=== PATIENT | female | born 1950 | race Caucasian/White ===

== ENCOUNTER 2016-09-27 06:25 | Emergency (ER) | payer OTHER ==
[2016-09-27] MEDS ORDERED: Phenergan 25 MG INJ IV ONE (06:44)
[2016-09-27] MEDS ORDERED: Hydromorphone 1 mg/ml Ampule IV ONE (06:44)
[2016-09-27] MEDS ORDERED: Sodium Chloride 0.9% 1000 ML 1,000 ML IV SCH (06:45)
[2016-09-27] MEDS ORDERED: TRANDATE 20 MG/5 ML SYRINGE IV ONE (06:58)
--- NOTE | 2016-09-27 06:58 | ERPHSYRPT ---
- History of Present Illness Source: patient, family () Exam Limitations: no limitations Patient Subjective Stated Complaint: pt states she woke up with a deadache on the rt side of her head. Triage Nursing Assessment: pt alert and oreinted, asnwers questions approp. pt ambulatory with unsteady gait noted. respirations nonlabored with lungs cta. regulatory scientist strong and equal bilat. lower ext strength equal bilat. edema noted to bilat lower ext- pt states has been swollen for past year. Hx Tetanus, Diphtheria Vaccination/Date Given: Yes Hx Influenza Vaccination/Date Given: No Hx Pneumococcal Vaccination/Date Given: No Immunizations Up to Date: Yes <LYNSEY PURDY - Last Filed: 09/27/16 07:19> <SOPHIE KWONG - Last Filed: 09/27/16 10:55> - History of Present Illness Time Seen by Provider: 09/27/16 06:35 Physician History: AT 0530 THIS AM PT AWOKE WITH A RIGHT SIDED HEADACHE, VOMITING AND BP = 200/ 100. CHEST PAIN, SHORTNESS OF AIR, ABDOMINAL PAIN ALL DENIED. PT STATES SHE HAD A CVA IN JUNE 2015 WITH RESIDUAL UNSTEADY WALKING AND TINGLING IN THE LEFT HAND. (LYNSEY PURDY) Allergies/Adverse Reactions: liraglutide [From Victoza] Adverse Reaction (Severe, Verified 09/27/16 06:47) pancreatitis Penicillins Adverse Reaction (Verified 09/27/16 06:47) MOTHER WAS ALLERGIC SO SHE NEVER TOOK IT Home Medications: Aspirin [Baby Aspirin] 81 mg PO DAILY 12/14/12 [History] Insulin Aspart [Novolog Flexpen] 25 unit SQ TIDAC 07/18/15 [History] Metoprolol Succinate 50 mg [Toprol Xl 50 MG] 50 mg PO BID 07/18/15 [ History] Pravastatin Sodium 40 mg PO DAILY 07/18/15 [History] Clopidogrel Bisulfate 75 mg [PLAVIX 75 MG Tablet] 75 mg PO DAILY 09/27/16 [History] Duloxetine HCl 30 mg [Cymbalta 30 MG Capsule] 30 mg PO DAILY 09/27/16 [ History] Insulin Degludec [Tresiba Flextouch U-100] 40 unit SQ BID 09/27/16 [History] - Review of Systems Constitutional: Other (ELEVATED BP) Respiratory: No Dyspnea Cardiac: No Chest Pain Abdominal/Gastrointestinal: Vomiting, No Abdominal Pain Neurological: Headache, Sensory Changes (NUMBNESS IN THE LEFT HAND), Other ( UNSTEADY WALKING) All Other Systems: Reviewed and Negative <LYNSEY PURDY - Last Filed: 09/27/16 07:19> - Past Medical History Pertinent Past Medical History: Yes Neurological History: No Pertinent History, Stroke, Other ENT History: No Pertinent History Cardiac History: No Pertinent History, High Cholesterol, Hypertension Respiratory History: No Pertinent History Endocrine Medical History: Diabetes Type II Musculoskeletal History: No Pertinent History GI Medical History: Gallbladder Disease Psycho-Social History: No Pertinent History Female Reproductive Disorders: Other Other Medical History: OVARIAN CYSTS COLON POLYPS. 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 thyroid biopsy - Social History Smoking Status: Never smoker Exposure to second hand smoke: No Drug Use: none Patient Lives Alone: No - Female History Hx Now: No <LYNSEY PURDY - Last Filed: 09/27/16 07:19> - Physical Exam General Appearance: alert Eye Exam: PERRL/EOMI Ears, Nose, Throat Exam: TMs normal, pharynx normal, moist mucous membranes Neck Exam: normal inspection Respiratory Exam: lungs clear Cardiovascular Exam: normal heart sounds Gastrointestinal/Abdomen Exam: soft, normal bowel sounds Back Exam: normal range of motion Extremity Exam: swelling (LOWER LEGS AND FEET HAVE +1 EDEMA) Neurologic Exam: alert, cooperative, gas technician II-XII nml as tested, normal mood/ affect, sensation nml, No motor deficits Skin Exam: warm, dry SpO2 Interpretation: normal SpO2: 94 Oxygen Delivery: Room Air <LYNSEY PURDY - Last Filed: 09/27/16 07:19> <SOPHIE KWONG - Last Filed: 09/27/16 10:55> - Nursing Vital Signs Nursing Vital Signs: Initial Vital Signs Temperature 97.4 F 09/27/16 06:29 Pulse Rate 67 09/27/16 06:29 Respiratory Rate 16 09/27/16 06:29 Blood Pressure 189/94 09/27/16 06:29 O2 Sat by Pulse Oximetry 94 L 09/27/16 06:29 Pain Scale Pain Intensity 0 - Course Nursing assessment & vital signs reviewed: Yes <ELLYNSEY SALAZAR - Last Filed: 09/27/16 07:19> - Course Nursing assessment & vital signs reviewed: Yes EKG Interpreted by Me: RATE (70 bpm), Sinus Rhythm, Left Donna Deviation, Other ( EKG, sinus rhythm 70 bpm, and complete right bundle branch b, left anterior fascicular block left axis deviation T wave inversions lateral leads possible old anterior septal myocardial infarction no acute ST or T wave changes as compared to December 15, 2012) - CT Exams Head CT Interpretation: Tele-radiologist Report (head CT: Impression mild chronic changes (mild heterogeneity of the white matter attenuation, consistent with chronic white matter ischemic changes. Mild cerebral volume loss. No hemorrhage. No mass effect or midline shift), no acute intracranial abnormality. No significant change compared to prior examination.) <SOPHIE KWONG - Last Filed: 09/27/16 10:55> Ordered Tests: Active Orders 24 hr Category Date Time Status EKG-ER Only STAT Care 09/27/16 07:29 Active IV Insertion STAT Care 09/27/16 06:44 Active Oxygen-ED Only NASAL CANNULA 3 lpm Care 09/27/16 07:52 Active HEAD WITHOUT CONTRAST [CT] Stat Exams 09/27/16 06:44 Completed AMYLASE Stat Lab 09/27/16 06:30 Completed CBC W DIFF Stat Lab 09/27/16 06:30 Completed CMP Stat Lab 09/27/16 06:30 Completed CULTURE,URINE Stat Lab 09/27/16 09:00 Received LIPASE Stat Lab 09/27/16 06:30 Completed MAG [MAGNESIUM] Stat Lab 09/27/16 06:30 Completed PROTIME WITH INR Stat Lab 09/27/16 06:30 Completed PTT Stat Lab 09/27/16 06:30 Completed UA W/ MICROSCOPIC Stat Lab 09/27/16 09:00 Completed Medication Summary Generic Name Dose Route Start Last Admin Trade Name Freq PRN Reason Stop Dose Admin Sodium Chloride 1,000 mls @ 100 mls/hr 09/27/16 06:45 09/27/16 07:18 Sodium Chloride 0.9% 1000 Ml IV 10/27/16 06:44 100 mls/hr .Q10H DOROTHY Administration Discontinued Medications Generic Name Dose Route Start Last Admin Trade Name Mele PRN Reason Stop Dose Admin Hydromorphone HCl 1 mg 09/27/16 06:44 09/27/16 07:19 Hydromorphone 1 Mg/Ml Ampule IV 09/27/16 06:45 1 mg STAT ONE Administration Hydromorphone HCl Confirm 09/27/16 07:09 Hydromorphone 1 Mg/Ml Ampule Administered 09/27/16 07:10 Dose 1 mg .ROUTE .STK-MED ONE Levofloxacin/Dextrose 500 mg in 100 mls @ 100 mls/hr 09/27/16 09:49 09/27/16 09:55 Levofloxacin 500mg/100ml D5w IV 09/27/16 10:48 100 mls/hr STAT STA Administration Levofloxacin/Dextrose Confirm 09/27/16 09:52 Levofloxacin 500mg/100ml D5w Administered 09/27/16 09:53 Dose 500 mg in 100 mls @ ud IV .STK-MED ONE Labetalol HCl 10 mg 09/27/16 06:58 09/27/16 07:19 Trandate 20 Mg/5 Ml Syringe IV 09/27/16 06:59 10 mg STAT ONE Administration Labetalol HCl Confirm 09/27/16 07:12 Trandate 100 Mg/20 Ml Mdv For Drip Administered 09/27/16 07:13 Dose 100 mg IV .STK-MED ONE Promethazine HCl 12.5 mg 09/27/16 06:44 09/27/16 07:18 Phenergan 25 Mg Inj IV 09/27/16 06:45 12.5 mg STAT ONE Administration Promethazine HCl Confirm 09/27/16 07:08 Phenergan 25 Mg Inj Administered 09/27/16 07:09 Dose 25 mg .ROUTE .STK-MED ONE Lab/Rad Data: Laboratory Result Diagrams 09/27/16 06:30 09/27/16 06:30 Laboratory Results 09/27/16 09/27/16 09/27/16 Range/Units 09:00 06:30 06:30 WBC (4.0-10.5) K/mm3 RBC (4.1-5.4) M/mm3 Hgb (12.0-16.0) gm/dl Hct (35-47) % MCV (78-100) fl MCH (26-32) pg MCHC (32-36) g/dl RDW (11.5-14.0) % Plt Count (150-450) K/mm3 MPV (6-9.5) fl Gran % (36.0-66.0) % Lymphocytes % (24.0-44.0) % Monocytes % (0.0-12.0) % Eosinophils % (0.00-5.0) % Basophils % (0.0-0.4) % Basophils # (0-0.4) INR 1.03 (0.8-3.0) APTT 31.4 (25.3-37.0) SECONDS Sodium (136-145) mEq/L Potassium (3.5-5.1) mEq/L Chloride (98-107) mEq/L Carbon Dioxide (21-32) mEq/L Anion Gap (5-15) MEQ/L BUN (9-20) mg/dL Creatinine (0.55-1.30) mg/dl Estimated GFR ML/MIN Glucose (70-110) MG/DL Calcium (8.5-10.1) mg/dL Magnesium 1.6 L (1.8-2.4) mg/dL Total Bilirubin (0.2-1.0) mg/dL AST (15-37) U/L ALT (12-78) U/L Alkaline Phosphatase (46-116) U/L Serum Total Protein (6.4-8.2) gm/dL Albumin (3.4-5.0) g/dL Amylase (25-115) U/L Lipase (73-393) U/L Ur Collection Type CATH Urine Color YELLOW (YELLOW) Urine Appearance CLOUDY (CLEAR) Urine pH 5.0 (5-6) Ur Specific Buena 1.020 (1.005-1.025) Urine Protein 500 (Negative) Urine Ketones TRACE (NEGATIVE) Urine Blood 250 (0-5) Onur/ul Urine Nitrite NEGATIVE (NEGATIVE) Urine Bilirubin NEGATIVE (NEGATIVE) Urine Urobilinogen NORMAL (0-1) mg/dL Ur Leukocyte Esterase 2+ (NEGATIVE) Urine Microscopic RBC 25-50 (0-2) /HPF Urine Microscopic WBC >100 (0-5) /HPF Ur Epithelial Cells FEW (FEW) /HPF Amorphous Crystals MODERATE (NEGATIVE) /HPF Urine Bacteria MANY (NEGATIVE) /HPF Urine Glucose 100 (NEGATIVE) mg/dL Specimen Received 09/27/16 0900 09/27/16 09/27/16 Range/Units 06:30 06:30 WBC 9.2 (4.0-10.5) K/mm3 RBC 4.64 (4.1-5.4) M/mm3 Hgb 12.9 (12.0-16.0) gm/dl Hct 39.5 (35-47) % MCV 85.1 (78-100) fl MCH 27.8 (26-32) pg MCHC 32.7 (32-36) g/dl RDW 16.6 H (11.5-14.0) % Plt Count 220 (150-450) K/mm3 MPV 10.8 H (6-9.5) fl Gran % 61.5 (36.0-66.0) % Lymphocytes % 25.4 (24.0-44.0) % Monocytes % 9.3 (0.0-12.0) % Eosinophils % 3.4 (0.00-5.0) % Basophils % 0.4 (0.0-0.4) % Basophils # 0.04 (0-0.4) INR (0.8-3.0) APTT (25.3-37.0) SECONDS Sodium 141 (136-145) mEq/L Potassium 3.8 (3.5-5.1) mEq/L Chloride 103 (98-107) mEq/L Carbon Dioxide 31.3 (21-32) mEq/L Anion Gap 10.1 (5-15) MEQ/L BUN 30 H (9-20) mg/dL Creatinine 1.26 (0.55-1.30) mg/dl Estimated GFR 46 ML/MIN Glucose 101 (70-110) MG/DL Calcium 10.2 H (8.5-10.1) mg/dL Magnesium (1.8-2.4) mg/dL Total Bilirubin 0.50 (0.2-1.0) mg/dL AST 28 (15-37) U/L ALT 23 (12-78) U/L Alkaline Phosphatase 62 (46-116) U/L Serum Total Protein 7.5 (6.4-8.2) gm/dL Albumin 2.9 L (3.4-5.0) g/dL Amylase 49 (25-115) U/L Lipase 137 (73-393) U/L Ur Collection Type Urine Color (YELLOW) Urine Appearance (CLEAR) Urine pH (5-6) Ur Specific Buena (1.005-1.025) Urine Protein (Negative) Urine Ketones (NEGATIVE) Urine Blood (0-5) Onur/ul Urine Nitrite (NEGATIVE) Urine Bilirubin (NEGATIVE) Urine Urobilinogen (0-1) mg/dL Ur Leukocyte Esterase (NEGATIVE) Urine Microscopic RBC (0-2) /HPF Urine Microscopic WBC (0-5) /HPF Ur Epithelial Cells (FEW) /HPF Amorphous Crystals (NEGATIVE) /HPF Urine Bacteria (NEGATIVE) /HPF Urine Glucose (NEGATIVE) mg/dL Specimen Received <LYNSEY PURDY - Last Filed: 09/27/16 07:19> - Progress Progress: improved <SOPHIE KWONG - Last Filed: 09/27/16 10:55> - Progress Progress Note: 09/27/16 08:02 This is a 65-year-old white female initially seen by Dr. Purdy Patient and her states the patient woke with a right-sided headache at 5 :30 AM she was having vomiting blood pressure was noted to be 200/100 there was no chest pain shortness of breath abdominal pain she denied any new neurologic changes she states she had a CVA in June 2015 with residual unsteady walking and tingling in the left hand. Patient had received labetalol Phenergan and Dilaudid which had been ordered by Dr. Purdy. Patient is now feeling comfortable she does state she still has a headache Blood pressure has improved. Patient is quite somnolent as result of her narcotic analgesia Physical examination obese white female somnolent but arouses easily alert oriented 3 cooperative to examination. Head is atraumatic normocephalic. Eyes PERRLA EOMI fundi are unremarkable. Ears TMs valerio and intact bilaterally. Nose is clear. Throat is clear. Neck is supple. Lungs are clear. Heart regular rate and rhythm without murmur. Abdomen soft nontender nondistended positive bowel sounds. Extremities full range of motion pulse equal symmetrical 2 over 4. Neuro cranial nerves II through XII are intact there's no facial droop. Speech is normal. [employer] Department Supervisor are equal and symmetrical 5 over 5. Finger to nose is within normal limits bilaterally no pronator drift. Full range of motion to all extremities. Sensation intact to all extremities. GCS is 15. DTRs 2 over 4 bilaterally. EKG normal sinus rhythm 70 beats per minute left axis deviation and complete right bundle branch block left anterior fascicular block T wave inversions in lateral leads does not appear to be acutely changed from EKG December 15, [address] no acute intracranial abnormalities no significant change compared to prior examination Labs CBC essentially normal magnesium slightly low at 1.6 chemistry otherwise essentially normal with the exception of a BUN of 30 creatinine 1.26 GFR 46 INR is 1.03 Impression migraine headache Hypertension Patient is improved after labetalol Phenergan and Dilaudid. Blood pressure is improving headache is improving However patient is somewhat somnolent after Dilaudid. Will monitor for a short time. 09/27/16 08:36 Patient now states her headache is is markedly improved. Still somewhat somnolent but arouses very easily. Blood pressure improved. 09/27/16 09:49 Patient somnolent rouses easily. States she is pain-free blood pressure stable Patient with a urinary tract infection. Patient states she does not want to be admitted. Will give patient Levaquin 500 mg IV and home with Macrobid 100 mg one orally twice a day for 10 days. Patient will need to follow-up with her family doctor. 09/27/16 10:28 (SOPHIE KWONG) <LYNSEY PURDY - Last Filed: 09/27/16 07:19> - Departure Time of Disposition: 10:42 Departure Disposition: Home Critical Care Time: No <SOPHIE KWONG - Last Filed: 09/27/16 10:55> - Departure Clinical Impression: HTN (hypertension) Qualifiers: Hypertension type: unspecified Qualified Code(s): I10 - Essential (primary) hypertension Headache Qualifiers: Headache type: unspecified Headache chronicity pattern: acute headache Intractability: not intractable Qualified Code(s): R51 - Headache UTI (urinary tract infection) Qualifiers: Urinary tract infection type: site unspecified Hematuria presence: with hematuria Qualified Code(s): N39.0 - Urinary tract infection, site not specified Condition: Fair Referrals: JOSUE KEITH [Primary Care Provider] - Instructions: Headache Additional Instructions: Return home, rest in a dark quiet room. Plenty of fluids. macrobid 100 mg orally twice a day for 10 days Take your other medications as prescribed by your family doctor. Follow-up with your family doctor call today and make an appointment. Return for acute distress or for severe symptoms or for any other problems. Prescriptions: Nitrofurantoin Macro 100 mg [Macrobid 100MG Capsule] 100 mg PO BID #20 capsule
[2016-09-27 07:04] LABS: BASOPHIL % 0.4 % (0.0-0.4); Eosinophil % 3.4 % (0.00-5.0); Granulocytes % 61.5 % (36.0-66.0); Lymphocytes % 25.4 % (24.0-44.0); Mean Cell Volume 85.1 fl (78-100); Mean Corpuscular Hemoglobin 27.8 pg (26-32); Mean Platelet Volume 10.8 fl (6-9.5); Monocytes % 9.3 % (0.0-12.0); Platelet Count 220 K/mm3 (150-450); Red Blood Count 4.64 M/mm3 (4.1-5.4); Red Cell Distribution Width 16.6 % (11.5-14.0); White Blood Count 9.2 K/mm3 (4.0-10.5)
[2016-09-27] MEDS ORDERED: Phenergan 25 MG INJ ONE (07:08)
[2016-09-27] MEDS ORDERED: Hydromorphone 1 mg/ml Ampule ONE (07:09)
[2016-09-27] MEDS ORDERED: Sodium Chloride 0.9% 1000 ML 1,000 ML ONE (07:09)
[2016-09-27] MEDS ORDERED: TRANDATE 100 MG/20 ML MDV FOR DRIP IV ONE (07:12)
[2016-09-27 07:35] LABS: INR 1.03 (0.8-3.0); PROTIME 11.6 SECONDS (9.95-12.35)
[2016-09-27 07:38] LABS: PTT 31.4 SECONDS (25.3-37.0)
[2016-09-27 07:52] LABS: ALBUMIN 2.9 g/dL (3.4-5.0); ANION GAP 10.1 MEQ/L (5-15); BILIRUBIN,TOTAL 0.5 mg/dL (0.2-1.0); Carbon Dioxide 31.3 mEq/L (21-32); Potassium 3.8 mEq/L (3.5-5.1); Total Protein 7.5 gm/dL (6.4-8.2)
--- NOTE | 2016-09-27 09:33 | XRAY ---
Indication: Headache. Patient on blood thinner. Multiple contiguous axial images obtained through the head without contrast. Comparison: July 18, 2015. Again age-appropriate global atrophy with minimal periventricular degenerative micro-ischemia bilaterally. No acute intracranial hemorrhage, abnormal extra-axial fluid collection, or mass effect. Fourth ventricle is midline without hydrocephalus. Bony calvarium intact. Visualized paranasal sinuses and mastoid air cells are clear. Impression: Stable nonacute senile brain. Comment: Preliminary interpretation was made by [facility]. No discrepancy. CT DI 68.98
[2016-09-27 09:41] LABS: Collection Type CATH; Leukocyte Esterase 2+ (NEGATIVE)
[2016-09-27 09:42] LABS: ADD URINE CULTURE? YES (NO); Bacteria MANY /HPF (NEGATIVE); Bilirubin NEGATIVE (NEGATIVE); Blood 250 Ery/ul (0-5); COMPLETE URINE MICROSCOPIC? YES; Epithelial Cells FEW /HPF (FEW); Glucose 100 mg/dL (NEGATIVE); WBC >100 /HPF (0-5)
[2016-09-27] MEDS ORDERED: Levofloxacin 500MG/100ML D5W 500 MG/100 ML BAG IV STA (09:49)
[2016-09-27] MEDS ORDERED: Levofloxacin 500MG/100ML D5W 500 MG/100 ML BAG IV ONE (09:52)
[2016-09-27 10:50] VITALS: BP 146/76; PULSE 78; O2SAT 93
== END 2016-09-27 11:08 | disposition home or self-care (01) ==
LOC: ED 06:25
DX: I10 Essential (primary) hypertension (principal); R51 Headache; N39.0 Urinary tract infection, site not specified; G43.909 Migraine, unspecified, not intractable, without status migrainosus
CPT/HCPCS: 36000; 36415; 70450; 80053; 81000; 82150; 83690; 83735; 85025; 85610; 85730; 87077; 87086; 87186; 93005; 96360; 96361; 96365; 96374; 96375; 99285; J1170; J1956; J2550; P9612

== ENCOUNTER 2017-02-14 19:56 | Emergency (ER) | payer OTHER ==
[2017-02-14] MEDS ORDERED: TYLENOL 325 MG PO STA (20:25)
[2017-02-14 20:28] VITALS: BP 154/70
[2017-02-14] MEDS ORDERED: TYLENOL 325 MG ONE (20:31)
[2017-02-14] MEDS ORDERED: DUONEB 0.5-3 MG/3 ml Neb IH ONE ×2 (20:46→21:17)
--- NOTE | 2017-02-14 20:46 | ERPHSYRPT ---
- History of Present Illness Time Seen by Provider: 02/14/17 20:44 Source: patient, family Exam Limitations: no limitations Patient Subjective Stated Complaint: Pt states she feels tired and hasn't gotten out of bed for 2 days. Family states that pt has not been eating and drinking well and that her urine is concentrated. Triage Nursing Assessment: Pt alert and oriented. Nonproductive intermittent cough. Decreased O2 sat but no apparent distress. Physician History: Pt states she feels tired and hasn't gotten out of bed for 2 days. Family states that pt has not been eating and drinking well Timing/Duration: day(s) (2-3 days) Associated Symptoms: cough, fever, loss of appetite, malaise Allergies/Adverse Reactions: liraglutide [From Victoza] Adverse Reaction (Severe, Verified 09/27/16 06:47) pancreatitis Penicillins Adverse Reaction (Verified 09/27/16 06:47) MOTHER WAS ALLERGIC SO SHE NEVER TOOK IT Home Medications: Aspirin [Baby Aspirin] 81 mg PO DAILY 12/14/12 [History] Insulin Aspart [Novolog Flexpen] 25 unit SQ TIDAC 07/18/15 [History] Metoprolol Succinate 50 mg [Toprol Xl 50 MG] 50 mg PO BID 07/18/15 [ History] Pravastatin Sodium 40 mg PO DAILY 07/18/15 [History] Clopidogrel Bisulfate 75 mg [PLAVIX 75 MG Tablet] 75 mg PO DAILY 09/27/16 [History] Duloxetine HCl 30 mg [Cymbalta 30 MG Capsule] 30 mg PO DAILY 09/27/16 [ History] Insulin Degludec [Tresiba Flextouch U-100] 40 unit SQ BID 09/27/16 [History] Hx Tetanus, Diphtheria Vaccination/Date Given: No Hx Influenza Vaccination/Date Given: No Hx Pneumococcal Vaccination/Date Given: No Immunizations Up to Date: No - Review of Systems Constitutional: Fever, Lethargy, Weakness Eyes: No Symptoms Ears, Nose, & Throat: No Symptoms Respiratory: Cough Cardiac: No Symptoms Abdominal/Gastrointestinal: No Symptoms Genitourinary Symptoms: No Symptoms Musculoskeletal: No Symptoms - Past Medical History Pertinent Past Medical History: Yes Neurological History: No Pertinent History, Stroke, Other ENT History: No Pertinent History Cardiac History: No Pertinent History, High Cholesterol, Hypertension Respiratory History: No Pertinent History Endocrine Medical History: Diabetes Type II Musculoskeletal History: No Pertinent History GI Medical History: Gallbladder Disease Psycho-Social History: No Pertinent History Female Reproductive Disorders: Other Other Medical History: OVARIAN CYSTS COLON POLYPS. 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 thyroid biopsy - Social History Smoking Status: Never smoker Exposure to second hand smoke: No Drug Use: none Patient Lives Alone: No (with ) - Nursing Vital Signs Nursing Vital Signs: Initial Vital Signs Temperature 100.1 F 02/14/17 20:19 Pulse Rate 86 02/14/17 20:19 Respiratory Rate 24 02/14/17 20:19 Blood Pressure 154/70 02/14/17 20:19 O2 Sat by Pulse Oximetry 86 L 02/14/17 20:19 Pain Scale Pain Intensity 0 - Physical Exam General Appearance: mild distress Eye Exam: PERRL/EOMI Ears, Nose, Throat Exam: normal ENT inspection Neck Exam: normal inspection Respiratory Exam: diminished breath sounds, wheezing Cardiovascular Exam: regular rate/rhythm Gastrointestinal/Abdomen Exam: soft Extremity Exam: normal inspection Neurologic Exam: alert Skin Exam: warm SpO2: 86 Oxygen Delivery: Room Air - Course Nursing assessment & vital signs reviewed: Yes - Radiology Exams Chest X-ray Interpretation: Reviewed by me (COPD changes) Ordered Tests: Active Orders 24 hr Category Date Time Status Oxygen-ED Only NASAL CANNULA 2 lpm Care 02/14/17 20:25 Active CHEST 2 VIEWS (PA AND LAT) Stat Exams 02/14/17 20:26 Taken CBC W DIFF Stat Lab 02/14/17 20:54 Completed CMP Stat Lab 02/14/17 20:54 Received Lactic Acid Stat Lab 02/14/17 20:25 Ordered UA W/RFX UR CULTURE Stat Lab 02/14/17 20:26 Ordered Respiratory Nebulizer STAT RT 02/14/17 20:46 Completed Medication Summary Generic Name Dose Route Start Last Admin Trade Name Freq PRN Reason Stop Dose Admin Ceftriaxone Sodium 1,000 mg 02/14/17 21:33 Rocephin 1000 Mg Inj IM 02/14/17 21:34 STAT ONE Discontinued Medications Generic Name Dose Route Start Last Admin Trade Name Mele PRN Reason Stop Dose Admin Acetaminophen 650 mg 02/14/17 20:25 02/14/17 20:33 Tylenol 325 Mg PO 02/14/17 20:26 650 mg STAT STA Administration Acetaminophen Confirm 02/14/17 20:31 Tylenol 325 Mg Administered 02/14/17 20:32 Dose 650 mg .ROUTE .STK-MED ONE Albuterol/Ipratropium 3 ml 02/14/17 20:46 02/14/17 21:18 Duoneb 0.5-3 Mg/3 Ml Neb IH 02/14/17 20:47 3 ml STAT ONE Administration Albuterol/Ipratropium Confirm 02/14/17 21:17 Duoneb 0.5-3 Mg/3 Ml Neb Administered 02/14/17 21:18 Dose 3 ml IH .STK-MED ONE Lab/Rad Data: Laboratory Result Diagrams 02/14/17 20:54 Laboratory Results 02/14/17 Range/Units 20:54 WBC 8.2 (4.0-10.5) K/mm3 RBC 4.47 (4.1-5.4) M/mm3 Hgb 12.4 (12.0-16.0) gm/dl Hct 38.1 (35-47) % MCV 85.2 (78-100) fl MCH 27.7 (26-32) pg MCHC 32.5 (32-36) g/dl RDW 16.7 H (11.5-14.0) % Plt Count 176 (150-450) K/mm3 MPV 10.7 H (6-9.5) fl Gran % 83.1 H (36.0-66.0) % Lymphocytes % 8.3 L (24.0-44.0) % Monocytes % 8.4 (0.0-12.0) % Eosinophils % 0.0 (0.00-5.0) % Basophils % 0.2 (0.0-0.4) % Basophils # 0.02 (0-0.4) - Progress Progress: improved Counseled pt/family regarding: lab results, diagnosis, need for follow-up, rad results - Departure Time of Disposition: 21:39 Departure Disposition: Home Clinical Impression: Bronchitis Condition: Stable Critical Care Time: No Referrals: JOSUE KEITH [Primary Care Provider] - Instructions: Bronchitis Additional Instructions: Please follow the instructions given to you. Please take your medication as prescribed if given. If symptoms recur or get worse, come back to the emergency room if you cannot reach your primary care physician, or call your primary care physician for an appointment. Again if your symptoms get worse, come back to the emergency room. Thanks for visiting emergency room, and let us take care of you. Prescriptions: Ipratropium/Albuterol Sulfate [Combivent Inhaler] 2 puff IH QID #120 aer.w.adap Levofloxacin [Levaquin 500 MG Tablet] 500 mg PO QAM #7 tablet
[2017-02-14 20:57] LABS: BASOPHIL % 0.2 % (0.0-0.4); Granulocytes % 83.1 % (36.0-66.0); Lymphocytes % 8.3 % (24.0-44.0); Mean Cell Volume 85.2 fl (78-100); Mean Corpuscular Hemoglobin 27.7 pg (26-32); Mean Platelet Volume 10.7 fl (6-9.5); Monocytes % 8.4 % (0.0-12.0); Platelet Count 176 K/mm3 (150-450); Red Blood Count 4.47 M/mm3 (4.1-5.4); Red Cell Distribution Width 16.7 % (11.5-14.0); White Blood Count 8.2 K/mm3 (4.0-10.5)
[2017-02-14 21:31] LABS: ALBUMIN 2.8 g/dL (3.4-5.0); ANION GAP 11.5 MEQ/L (5-15); BILIRUBIN,TOTAL 0.4 mg/dL (0.2-1.0); Carbon Dioxide 27.3 mEq/L (21-32); Potassium 4.1 mEq/L (3.5-5.1); Total Protein 7.6 gm/dL (6.4-8.2)
[2017-02-14] MEDS ORDERED: Rocephin 1000 MG INJ IM ONE (21:33)
[2017-02-14] MEDS ORDERED: Rocephin 1000 MG INJ ONE (21:38)
[2017-02-14] MEDS ORDERED: XYLOCAINE 1% HCL 20 ML MDV ONE (21:39)
[2017-02-14 22:18] VITALS: PULSE 89
[2017-02-15 06:57] VITALS: O2SAT 92
--- NOTE | 2017-02-15 08:41 | XRAY ---
Indication: Fever, cough, and weakness. Comparison: July 18, 2015. PA/lateral chest remains clear. Heart is not enlarged. Vascularity normal. Bony thorax intact again with mild osteopenia and degenerative changes. Impression: Stable nonacute chest again with chronic features.
== END 2017-02-14 22:39 | disposition home or self-care (01) ==
LOC: ED 19:56
DX: J40 Bronchitis, not specified as acute or chronic (principal); R05 Cough; R50.9 Fever, unspecified; R63.0 Anorexia; R53.81 Other malaise; Z79.899 Other long term (current) drug therapy; I10 Essential (primary) hypertension; E11.9 Type 2 diabetes mellitus without complications; E78.00 Pure hypercholesterolemia, unspecified
CPT/HCPCS: 36415; 71020; 80053; 83605; 85025; 99284; J0696; A9270-GY

== ENCOUNTER 2018-01-22 12:57 | Observation (INO) | payer MEDICARE, OTHER ==
--- NOTE | 2018-01-22 13:47 | ERPHSYRPT ---
- History of Present Illness Time Seen by Provider: 01/22/18 13:32 Source: patient Exam Limitations: no limitations Patient Subjective Stated Complaint: Was at the [facility] and her left leg went out and she fell to the floor and hit her head on the concrete, was having trouble walking yesterday with the same leg Triage Nursing Assessment: Pt reports that she was at the [facility] and her left leg went out and she fell to the floor and hit her head on the concrete, was having trouble walking yesterday with the same leg, hx of CVA with left sided deficit in 2016, denies head pain, minor tingling in the left corner of mouth, denies any other numbness or tingling, vitals wnl, pulses good, no difficulties with strength Physician History: 67-year-old white female arrives with complaints of falling [place] [facility] and hitting her head. Patient states that she's been having problems with walking with her left leg she has no problems moving her left leg but when she stands up she has a problem walking symptoms since yesterday. She states that her left leg gave out on her this morning about 20 minutes prior to arrival she fell and hit the back of her head. She denies any problems moving she did not have any loss of consciousness she denies any neck pain. 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 Past surgical history includes hysterectomy, cholecystectomy, hernia repair, goiter, right ovary to surgery, colonic polyps and thyroid biopsy. Timing/Duration: other (trouble with walkingon left leg since yesterday, fell and hit head today) Severity: moderate Modifying Factors: Improves With: nothing Associated Symptoms: other (left Leg giving out on patient since yesterday), No nausea, No vomiting, No abdominal pain, No shortness of breath, No heartburn, No diaphoresis, No cough, No chills, No chest pain, No fever, No headaches, No loss of appetite, No malaise, No rash, No syncope, No seizure, No weakness Allergies/Adverse Reactions: liraglutide [From Victoza] Adverse Reaction (Severe, Verified 01/22/18 13:29) pancreatitis Penicillins Adverse Reaction (Verified 01/22/18 13:29) MOTHER WAS ALLERGIC SO SHE NEVER TOOK IT Home Medications: Aspirin [Baby Aspirin] 81 mg PO DAILY 12/14/12 [History] Metoprolol Succinate 50 mg [Toprol Xl 50 MG] 50 mg PO BID 07/18/15 [ History] Pravastatin Sodium 40 mg PO DAILY 07/18/15 [History] Clopidogrel Bisulfate 75 mg [PLAVIX 75 MG Tablet] 75 mg PO DAILY 09/27/16 [History] Duloxetine HCl 30 mg [Cymbalta 30 MG Capsule] 30 mg PO DAILY 09/27/16 [ History] Insulin Glargine,Hum.rec.anlog [Robin Kebede] 50 unit SQ HS 01/22/18 [ History] Hx Tetanus, Diphtheria Vaccination/Date Given: No Hx Influenza Vaccination/Date Given: No Hx Pneumococcal Vaccination/Date Given: No - Review of Systems Constitutional: Other (fell and hit back of head), No Fever, No Chills Eyes: No Symptoms Ears, Nose, & Throat: No Symptoms Respiratory: No Cough, No Dyspnea Cardiac: No Chest Pain, No Edema, No Syncope Abdominal/Gastrointestinal: No Abdominal Pain, No Nausea, No Vomiting, No Diarrhea Genitourinary Symptoms: No Dysuria Musculoskeletal: Other (Left leg giving out on patient since yesterday) Skin: No Rash Neurological: Other (Left leg giving out on patient was she walks since yesterday), No Dizziness, No Headache, No Irritability, No Lethargy, No Paralysis, No Parasthesia, No Seizure, No Sensory Changes, No Speech Changes, No Tics, No Tremors, No Vertigo Psychological: No Symptoms Endocrine: No Symptoms All Other Systems: Reviewed and Negative - Past Medical History Pertinent Past Medical History: Yes Neurological History: No Pertinent History, Stroke, Other ENT History: No Pertinent History Cardiac History: No Pertinent History, High Cholesterol, Hypertension Respiratory History: No Pertinent History Endocrine Medical History: Diabetes Type II Musculoskeletal History: No Pertinent History GI Medical History: Gallbladder Disease Psycho-Social History: No Pertinent History Female Reproductive Disorders: Other Other Medical History: OVARIAN CYSTS COLON POLYPS. hx of cva last year with some lt sided weakness and bells palsy - Past Surgical History Past Surgical History: Yes Neuro Surgical History: No Pertinent History Cardiac: No Pertinent History Respiratory: No Pertinent History Gastrointestinal: Cholecystectomy, Hernia Repair Musculoskeletal: No Pertinent History Female Surgical History: Hysterectomy, Other Other Surgical History: GOITER removed, right ovary removed, polpys removed colon. thyroid biopsy - Social History Smoking Status: Never smoker Exposure to second hand smoke: No Drug Use: none Patient Lives Alone: No (with ) - Female History Hx Now: No - Nursing Vital Signs Nursing Vital Signs: Initial Vital Signs Temperature 98.6 F 01/22/18 13:19 Pulse Rate 82 01/22/18 13:19 Blood Pressure 134/72 01/22/18 13:19 O2 Sat by Pulse Oximetry 93 L 01/22/18 13:19 Pain Scale Pain Intensity 0 - Physical Exam General Appearance: no apparent distress, alert Eye Exam: PERRL/EOMI, eyes nml inspection Ears, Nose, Throat Exam: normal ENT inspection, TMs normal, pharynx normal, moist mucous membranes Neck Exam: normal inspection, non-tender, supple, full range of motion Respiratory Exam: normal breath sounds, lungs clear, No respiratory distress Cardiovascular Exam: regular rate/rhythm, normal heart sounds, normal peripheral pulses Gastrointestinal/Abdomen Exam: soft, normal bowel sounds, No tenderness, No mass Back Exam: normal inspection, normal range of motion, No CVA tenderness, No vertebral tenderness Extremity Exam: normal inspection, normal range of motion, pelvis stable Neurologic Exam: alert, oriented x 3, cooperative, flexographic press operator II-XII nml as tested, normal mood/affect, nml cerebellar function, nml station & gait, sensation nml, other (patient alert, oriented 3, no facial droop, normal finger to nose, no pronator drift, electro mechanical technologist equal and symmetrical 5/5. Musculoskeletal strength intact to lower extremities 5/5, GCS equals 15, sensation intact to all extremities, speech normal), No motor deficits Skin Exam: normal color, warm, dry, No rash SpO2 Interpretation: normal (93%) SpO2: 93 Oxygen Delivery: Room Air - Course Nursing assessment & vital signs reviewed: Yes EKG Interpreted by Me: RATE (79 bpm), Sinus Rhythm, Left [place] Deviation, Other ( EKG:sinus rhythm, 79 bpm, left axis deviation, and complete right bundle branch block, left anterior fascicular block. No acute changes as compared to September) - CT Exams Head CT Interpretation: Discussed w/radiologist (head CT: Stable nonacute senile brain.) Ordered Tests: Active Orders 24 hr Category Date Time Status Accucheck STAT Care 01/22/18 13:38 Active Quality Control Chemist STAT Care 01/22/18 13:38 Active EKG-ER Only STAT Care 01/22/18 13:38 Active IV Insertion STAT Care 01/22/18 13:38 Active Pulse Oximetry (ED) STAT Care 01/22/18 13:38 Active HEAD WITHOUT CONTRAST [CT] Stat Exams 01/22/18 13:39 Completed CBC W DIFF Stat Lab 01/22/18 13:55 Completed CMP Stat Lab 01/22/18 13:55 Completed CULTURE,URINE Stat Lab 01/22/18 Received UA W/RFX UR CULTURE Stat Lab 01/22/18 Completed Lab/Rad Data: Laboratory Result Diagrams 01/22/18 13:55 01/22/18 13:55 Laboratory Results 01/22/18 01/22/18 01/22/18 Range/Units Unknown 13:55 13:55 WBC 8.0 (4.0-10.5) K/mm3 RBC 3.56 L (4.1-5.4) M/mm3 Hgb 9.9 L (12.0-16.0) gm/dl Hct 30.2 L (35-47) % MCV 84.8 (78-100) fl MCH 27.8 (26-32) pg MCHC 32.8 (32-36) g/dl RDW 16.8 H (11.5-14.0) % Plt Count 195 (150-450) K/mm3 MPV 10.7 H (6-9.5) fl Gran % 67.1 H (36.0-66.0) % Eos # (Auto) 0.42 (0-0.5) Absolute Lymphs (auto) 1.61 (1.0-4.6) Absolute Monos (auto) 0.57 (0.0-1.3) Lymphocytes % 20.0 L (24.0-44.0) % Monocytes % 7.1 (0.0-12.0) % Eosinophils % 5.2 H (0.00-5.0) % Basophils % 0.6 (0.0-0.4) % Absolute Granulocytes 5.39 (1.4-6.9) Basophils # 0.05 (0-0.4) Sodium 139 (137-145) mmol/L Potassium 4.8 (3.5-5.1) mmol/L Chloride 104 (98-107) mmol/L Carbon Dioxide 26 (22-30) mmol/L Anion Gap 13.3 (5-15) MEQ/L BUN 45 H (7-17) mg/dL Creatinine 1.78 H (0.52-1.04) mg/dL Estimated GFR 30.4 ML/MIN Glucose 236 H (74-106) mg/dL Calcium 9.6 (8.4-10.2) mg/dL Total Bilirubin 0.30 (0.2-1.3) mg/dL AST 22 (14-36) U/L ALT 21 (0-35) U/L Alkaline Phosphatase 89 (38-126) U/L Serum Total Protein 6.9 (6.3-8.2) g/dL Albumin 3.7 (3.5-5.0) g/dL Urine Color YELLOW (YELLOW) Urine Appearance SLIGHTLY CLOUDY (CLEAR) Urine pH 6.0 (5-6) Ur Specific [place] 1.014 (1.005-1.025) Urine Protein >=500 (Negative) Urine Ketones NEGATIVE (NEGATIVE) Urine Blood NEGATIVE (0-5) Onur/ul Urine Nitrite NEGATIVE (NEGATIVE) Urine Bilirubin NEGATIVE (NEGATIVE) Urine Urobilinogen NEGATIVE (0-1) mg/dL Ur Leukocyte Esterase TRACE (NEGATIVE) Urine WBC (Auto) 11-15 (0-5) /HPF Urine RBC (Auto) NONE (0-2) /HPF U Epithel Cells (Auto) NONE (FEW) /HPF Urine Bacteria (Auto) RARE (NEGATIVE) /HPF Urine Mucus (Auto) SLIGHT (NEGATIVE) /HPF Urine Culture Reflexed YES (NO) Urine Glucose 150 (NEGATIVE) mg/dL - Progress Progress: improved Progress Note: 01/22/18 15:42 This is a 67-year-old white female with history of CVA, hyperlipidemia, high blood pressure, diabetes type 2, gallbladder disease, ovarian cysts, colonic polyps, CVA with left-sided weakness Patient arrives with complaint of trouble walking since yesterday she states that her left leg has been giving out on her she [place] and she fell and hit her head. She states she hit the back of her head she did not have any loss of consciousness. She was noted to by the nurses to have an unsteady gait on arrival. When I checked the patient to the shortly after arrival patient was alert oriented 3 she was speaking well no speech deficits no facial droop. Musculoskeletal strength was 5 over 5 upper and lower. Finger to nose was normal. Sensation was intact to all extremities. Patient's EKG remarkable for sinus rhythm 79 bpm left axis deviation, incomplete right bundle branch block and probable left anterior fascicular block no acute ST or T wave changes head CT did not show any acute intracranial abnormalities Chemistry was remarkable for a mild elevation of BUN of 45 creatinine 1.7 and a glucose was 236 chemistry was otherwise essentially normal CBC White cell 8.0 hemoglobin 9.9 hematocrit 30.2 platelets were 195 Urinalysis has been obtained and is pending Patient is alert oriented and has normal neurologic exam at this time she was able to ambulate with the nurses to the bathroom. I've discussed the patient's case with Dr. Treviño will place patient on observation. Will give patient 162 mg of aspirin. Will place patient on telemetry and obtain every 4 hours neuro checks. - Departure Time of Disposition: 15:46 Departure Disposition: Observation Clinical Impression: Gait disturbance Accidental fall Qualifiers: Encounter type: initial encounter Qualified Code(s): W19.XXXA - Unspecified fall, initial encounter Head contusion Qualifiers: Contusion of head detail: unspecified part of head Condition: Fair Critical Care Time: No Referrals: FANTA TREVIÑO MD [Primary Care Provider] -
[2018-01-22 13:54] LABS: BASOPHIL % 0.6 % (0.0-0.4); Basophil (Absolute #) 0.05 (0-0.4); Eosinophil % 5.2 % (0.00-5.0); Eosinophil (Absolute #) 0.42 (0-0.5); Granulocyte Absolute (ANC) 5.39 (1.4-6.9); Granulocytes % 67.1 % (36.0-66.0); Hematocrit 30.2 % (35-47); Hemoglobin 9.9 gm/dl (12.0-16.0); Lymphocyte (Absolute #) 1.61 (1.0-4.6); Mean Cell Volume 84.8 fl (78-100); Mean Corpuscular Hemoglobin 27.8 pg (26-32); Mean Corpuscular Hgb Concent. 32.8 g/dl (32-36); Mean Platelet Volume 10.7 fl (6-9.5); Monocyte (Absolute #) 0.57 (0.0-1.3); Monocytes % 7.1 % (0.0-12.0); Platelet Count 195 K/mm3 (150-450); Red Blood Count 3.56 M/mm3 (4.1-5.4); Red Cell Distribution Width 16.8 % (11.5-14.0)
[2018-01-22 14:18] LABS: ALBUMIN 3.7 g/dL (3.5-5.0); ANION GAP 13.3 MEQ/L (5-15); BILIRUBIN,TOTAL 0.3 mg/dL (0.2-1.3); Calcium 9.6 mg/dL (8.4-10.2); Creatinine 1 1.78 mg/dL (0.52-1.04); Potassium 4.8 mmol/L (3.5-5.1); Total Protein 6.9 g/dL (6.3-8.2)
--- NOTE | 2018-01-22 14:21 | XRAY ---
Indication: Posterior head injury following fall. Left leg weakness. Multiple contiguous axial images obtained through the head without contrast. Comparison: September 27, 2016. Stable age-appropriate global atrophy and minimal periventricular degenerative micro-ischemia bilaterally. No acute intracranial hemorrhage, abnormal extra-axial fluid collection, or mass effect. Fourth ventricle is midline without hydrocephalus. Bony calvarium intact. Visualized paranasal sinuses and mastoid air cells are clear. Impression: Stable nonacute senile brain. CT DI 50.87
[2018-01-22 15:39] LABS: Appearance SLIGHTLY CLOUDY (CLEAR); Bilirubin NEGATIVE (NEGATIVE); Blood NEGATIVE Ery/ul (0-5); Glucose 150 mg/dL (NEGATIVE); Ketones NEGATIVE (NEGATIVE); Leukocyte Esterase TRACE (NEGATIVE); Nitrite NEGATIVE (NEGATIVE); Protein,Urine Dip >=500 (Negative); Specific Gravity 1.014 (1.005-1.025); Urobilinogen NEGATIVE mg/dL (0-1)
[2018-01-22] MEDS ORDERED: BABY ASPIRIN 81 MG CHEW PO ONE (15:47)
[2018-01-22] MEDS ORDERED: BABY ASPIRIN 81 MG CHEW ONE (15:55)
[2018-01-22] MEDS ORDERED: ZOCOR 20MG PO SCH (22:00)
[2018-01-22] MEDS: Toprol Xl 50 MG PO SCH (22:23)
[2018-01-22] MEDS: Trandate 100 MG PO SCH (22:23)
[2018-01-22] MEDS: NovoLOG Insulin SQ PRN (22:26)
[2018-01-22] MEDS ORDERED: Lantus Insulin SQ ONE (22:55)
[2018-01-22] MEDS ORDERED: Cymbalta 30 MG Capsule ONE (23:02)
[2018-01-22] MEDS ORDERED: PLAVIX 75 MG Tablet ONE (23:03)
[2018-01-23 05:54] LABS: BASOPHIL % 0.4 % (0.0-0.4); Basophil (Absolute #) 0.03 (0-0.4); Eosinophil % 6.1 % (0.00-5.0); Granulocyte Absolute (ANC) 4.87 (1.4-6.9); Granulocytes % 59.2 % (36.0-66.0); Hematocrit 30.9 % (35-47); Hemoglobin 9.9 gm/dl (12.0-16.0); Lymphocyte (Absolute #) 2.11 (1.0-4.6); Lymphocytes % 25.7 % (24.0-44.0); Mean Cell Volume 86.1 fl (78-100); Mean Platelet Volume 10.4 fl (6-9.5); Monocyte (Absolute #) 0.71 (0.0-1.3); Monocytes % 8.6 % (0.0-12.0); Platelet Count 175 K/mm3 (150-450); Red Blood Count 3.59 M/mm3 (4.1-5.4); White Blood Count 8.2 K/mm3 (4.0-10.5)
[2018-01-23 05:57] LABS: Mean Corpuscular Hemoglobin 27.5 pg (26-32)
[2018-01-23 06:04] LABS: ALBUMIN 3.5 g/dL (3.5-5.0); ANION GAP 11.8 MEQ/L (5-15); BILIRUBIN,TOTAL 0.3 mg/dL (0.2-1.3); Calcium 9.9 mg/dL (8.4-10.2); Creatinine 1 1.54 mg/dL (0.52-1.04); Potassium 4.9 mmol/L (3.5-5.1); Total Protein 6.8 g/dL (6.3-8.2)
[2018-01-23] MEDS ORDERED: MEDICATION INTERVENTION MC SCH (07:30)
[2018-01-23] MEDS: NovoLOG Insulin SQ PRN ×2 (07:39→11:28)
[2018-01-23] MEDS ORDERED: NON-FORMULARY ITEM (Mirabegron [Myrbetriq] 25 MG) PO SCH (10:00)
[2018-01-23] MEDS ORDERED: ECOTRIN 81 MG PO SCH (10:00)
[2018-01-23] MEDS ORDERED: BABY ASPIRIN 81 MG CHEW PO SCH (10:00)
[2018-01-23] MEDS ORDERED: VITAMIN D2 PO SCH (10:00)
[2018-01-23] MEDS: Trandate 100 MG PO SCH (10:53)
[2018-01-23] MEDS: Toprol Xl 50 MG PO SCH (10:54)
[2018-01-23 11:46] VITALS: PULSE 72; O2SAT 93
[2018-01-23 11:57] VITALS: BP 186/84
--- NOTE | 2018-01-23 12:57 | PCM.SSS ---
History of Present Illness - Chief Complaint Chief Complaint: fall at [facility] History of Present Illness: is a 67 year old female.Pt reports that she was at the [facility] and her left leg went out and she fell to the floor and hit her head on the concrete, was having trouble walking yesterday with the same leg, hx of CVA with left sided deficit in 2016, denies head pain, minor tingling in the left corner of mouth, denies any other numbness or tingling, 67-year-old white female arrives with complaints of falling at the local [facility] and hitting her head. Patient states that she's been having problems with walking with her left leg she has no problems moving her left leg but when she stands up she has a problem walking symptoms since yesterday. She states that her left leg gave out on her this morning about 20 minutes prior to arrival she fell and hit the back of her head. She denies any problems moving she did not have any loss of consciousness she denies any neck pain. 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 Past surgical history includes hysterectomy, cholecystectomy, hernia repair, goiter, right ovary to surgery, colonic polyps and thyroid biopsy. - Review of Systems Constitutional: No Fever, No Chills Eyes: No Symptoms Ears, Nose, & Throat: No Symptoms Respiratory: No Cough, No Short Of Breath Cardiac: No Chest Pain, No Edema, No Syncope Abdominal/Gastrointestinal: No Abdominal Pain, No Nausea, No Vomiting, No Diarrhea Genitourinary Symptoms: No Dysuria Musculoskeletal: No Back Pain, No Neck Pain Skin: No Rash Neurological: Focal Weakness, Gait Changes, No Dizziness, No Sensory Changes Psychological: No Symptoms Endocrine: No Symptoms Hematologic/Lymphatic: No Symptoms Immunological/Allergic: No Symptoms Medications & Allergies Home Medications: Home Medication List Aspirin [Baby Aspirin] 81 mg PO DAILY 12/14/12 [History Confirmed 01/22/18] Metoprolol Succinate 50 mg [Toprol Xl 50 MG] 50 mg PO BID 07/18/15 [ History Confirmed 01/22/18] Pravastatin Sodium 40 mg PO DAILY 07/18/15 [History Confirmed 01/22/18] Clopidogrel Bisulfate 75 mg [PLAVIX 75 MG Tablet] 75 mg PO DAILY 09/27/16 [History Confirmed 01/22/18] Duloxetine HCl 30 mg [Cymbalta 30 MG Capsule] 30 mg PO DAILY 09/27/16 [ History Confirmed 01/22/18] Ergocalciferol (Vitamin D2) [Vitamin D] 50,000 unit PO 3XW 01/22/18 [History Confirmed 01/22/18] Insulin Glargine,Hum.rec.anlog [Toujeo Max Solostar] 50 unit SQ HS 01/22/18 [ History Confirmed 01/22/18] Labetalol HCl [Trandate] 50 mg PO BID 01/22/18 [History Confirmed 01/22/18] Mirabegron [Myrbetriq] 25 mg PO DAILY 01/22/18 [History Confirmed 01/22/18] Allergies/Adverse Reactions: Allergies Allergy/AdvReac Type Severity Reaction Status Date / Time liraglutide [From Victoza] AdvReac Severe pancreatiti Verified 01/22/18 13:29 s Penicillins AdvReac MOTHER WAS Verified 01/22/18 13:29 ALLERGIC SO SHE NEVER TOOK IT - Past Medical History Past Medical History: Yes Neurological History: No Pertinent History, Stroke, Other ENT History: No Pertinent History Cardiac History: No Pertinent History, High Cholesterol, Hypertension Respiratory History: No Pertinent History Endocrine Medical History: Diabetes Type II Musculoskelatal History: No Pertinent History GI Medical History: Gallbladder Disease Pyscho-Social History: No Pertinent History Reproductive Disorders: Other Comment: OVARIAN CYSTS COLON POLYPS. hx of cva last year with some lt sided weakness and bells palsy - Female History Are you now?: No (hyster) - Past Surgical History Past Surgical History: Yes Neuro Surgical History: No Pertinent History Cardiac History: No Pertinent History Respiratory Surgery: No Pertinent History GI Surgical History: Cholecystectomy, Hernia Repair Genitourinary Surgical Hx: No Pertinent History Musculskeletal Surgical Hx: No Pertinent History Female Surgical History: Hysterectomy, Other Other Surgical History: GOITER removed, right ovary removed, polpys removed colon. thyroid biopsy - Social History Smoking Status: Never smoker Exposure to second hand smoke: No Alcohol: None Drug Use: none - Physical Exam Vital Signs: Vital Signs - 24 hr Temp Pulse Resp BP Pulse Ox 01/23/18 11:57 186/84 01/23/18 11:45 98.1 F 72 20 192/82 93 L 01/23/18 07:51 2 L 01/23/18 07:38 97.5 F 70 21 146/77 97 01/23/18 04:10 179/81 01/23/18 03:47 98.6 F 74 22 192/90 94 L 01/22/18 23:58 98.6 F 76 22 198/86 94 L 01/22/18 19:25 98.2 F 91 H 20 184/84 92 L 01/22/18 19:20 97 01/22/18 17:22 98.3 F 88 18 195/81 93 L 01/22/18 17:11 98.3 F 88 20 195/81 93 L 01/22/18 17:04 91 L 01/22/18 15:46 93 L 01/22/18 14:17 78 16 154/75 97 01/22/18 13:47 97 01/22/18 13:19 98.6 F 82 134/72 93 L Oxygen-Last 24 hours O2 Percentage 2 Liters = 28% O2 Percentage 2 Liters = 28% O2 Percentage 2 Liters = 28% General Appearance: no apparent distress, alert Neurologic Exam: alert, oriented x 3, cooperative, normal mood/affect, nml cerebellar function, nml station & gait, sensation nml, No motor deficits Eye Exam: PERRL/EOMI, eyes nml inspection Ears, Nose, Throat Exam: normal ENT inspection, TMs normal, pharynx normal, moist mucous membranes Neck Exam: normal inspection, non-tender, supple, full range of motion Respiratory Exam: normal breath sounds, lungs clear, No respiratory distress Cardiovascular Exam: regular rate/rhythm, normal heart sounds, normal peripheral pulses Gastrointestinal/Abdomen Exam: soft, normal bowel sounds, No tenderness, No mass Back Exam: normal inspection, normal range of motion, No CVA tenderness, No vertebral tenderness Extremity Exam: normal inspection, normal range of motion, pelvis stable Skin Exam: normal color, warm, dry, No rash Lymphatic Exam: No adenopathy Results - Labs Lab/Micro Results: Accuchecks Date 01/23/18 Date 01/23/18 Date 01/22/18 Time 11:30 Time 07:30 Time 21:00 Accucheck Value: 337 Accucheck Value: 227 Accucheck Value: 322 Accucheck Value: 240 Lab Results-Last 24 Hours 01/22/18 01/22/18 01/22/18 Range/Units 13:55 13:55 Unknown WBC 8.0 (4.0-10.5) K/mm3 RBC 3.56 L (4.1-5.4) M/mm3 Hgb 9.9 L (12.0-16.0) gm/dl Hct 30.2 L (35-47) % MCV 84.8 (78-100) fl MCH 27.8 (26-32) pg MCHC 32.8 (32-36) g/dl RDW 16.8 H (11.5-14.0) % Plt Count 195 (150-450) K/mm3 MPV 10.7 H (6-9.5) fl Gran % 67.1 H (36.0-66.0) % Eos # (Auto) 0.42 (0-0.5) Absolute Lymphs (auto) 1.61 (1.0-4.6) Absolute Monos (auto) 0.57 (0.0-1.3) Lymphocytes % 20.0 L (24.0-44.0) % Monocytes % 7.1 (0.0-12.0) % Eosinophils % 5.2 H (0.00-5.0) % Basophils % 0.6 (0.0-0.4) % Absolute Granulocytes 5.39 (1.4-6.9) Basophils # 0.05 (0-0.4) Sodium 139 (137-145) mmol/L Potassium 4.8 (3.5-5.1) mmol/L Chloride 104 (98-107) mmol/L Carbon Dioxide 26 (22-30) mmol/L Anion Gap 13.3 (5-15) MEQ/L BUN 45 H (7-17) mg/dL Creatinine 1.78 H (0.52-1.04) mg/dL Estimated GFR 30.4 ML/MIN Glucose 236 H (74-106) mg/dL Hemoglobin A1c (4.5-6.0) % Calcium 9.6 (8.4-10.2) mg/dL Total Bilirubin 0.30 (0.2-1.3) mg/dL AST 22 (14-36) U/L ALT 21 (0-35) U/L Alkaline Phosphatase 89 (38-126) U/L Serum Total Protein 6.9 (6.3-8.2) g/dL Albumin 3.7 (3.5-5.0) g/dL Urine Color YELLOW (YELLOW) Urine Appearance SLIGHTLY CLOUDY (CLEAR) Urine pH 6.0 (5-6) Ur Specific [place] 1.014 (1.005-1.025) Urine Protein >=500 (Negative) Urine Ketones NEGATIVE (NEGATIVE) Urine Blood NEGATIVE (0-5) Onur/ul Urine Nitrite NEGATIVE (NEGATIVE) Urine Bilirubin NEGATIVE (NEGATIVE) Urine Urobilinogen NEGATIVE (0-1) mg/dL Ur Leukocyte Esterase TRACE (NEGATIVE) Urine WBC (Auto) 11-15 (0-5) /HPF Urine RBC (Auto) NONE (0-2) /HPF U Epithel Cells (Auto) NONE (FEW) /HPF Urine Bacteria (Auto) RARE (NEGATIVE) /HPF Urine Mucus (Auto) SLIGHT (NEGATIVE) /HPF Urine Culture Reflexed YES (NO) Urine Glucose 150 (NEGATIVE) mg/dL 01/23/18 01/23/18 01/23/18 Range/Units 05:30 05:30 05:30 WBC 8.2 (4.0-10.5) K/mm3 RBC 3.59 L (4.1-5.4) M/mm3 Hgb 9.9 L (12.0-16.0) gm/dl Hct 30.9 L (35-47) % MCV 86.1 (78-100) fl MCH 27.5 (26-32) pg MCHC 32.0 (32-36) g/dl RDW 17.0 H (11.5-14.0) % Plt Count 175 (150-450) K/mm3 MPV 10.4 H (6-9.5) fl Gran % 59.2 (36.0-66.0) % Eos # (Auto) 0.50 (0-0.5) Absolute Lymphs (auto) 2.11 (1.0-4.6) Absolute Monos (auto) 0.71 (0.0-1.3) Lymphocytes % 25.7 (24.0-44.0) % Monocytes % 8.6 (0.0-12.0) % Eosinophils % 6.1 H (0.00-5.0) % Basophils % 0.4 (0.0-0.4) % Absolute Granulocytes 4.87 (1.4-6.9) Basophils # 0.03 (0-0.4) Sodium 138 (137-145) mmol/L Potassium 4.9 (3.5-5.1) mmol/L Chloride 103 (98-107) mmol/L Carbon Dioxide 28 (22-30) mmol/L Anion Gap 11.8 (5-15) MEQ/L BUN 40 H (7-17) mg/dL Creatinine 1.54 H (0.52-1.04) mg/dL Estimated GFR 35.9 ML/MIN Glucose 227 H (74-106) mg/dL Hemoglobin A1c 8.43 H (4.5-6.0) % Calcium 9.9 (8.4-10.2) mg/dL Total Bilirubin 0.30 (0.2-1.3) mg/dL AST 23 (14-36) U/L ALT 19 (0-35) U/L Alkaline Phosphatase 78 (38-126) U/L Serum Total Protein 6.8 (6.3-8.2) g/dL Albumin 3.5 (3.5-5.0) g/dL Urine Color (YELLOW) Urine Appearance (CLEAR) Urine pH (5-6) Ur Specific [place] (1.005-1.025) Urine Protein (Negative) Urine Ketones (NEGATIVE) Urine Blood (0-5) Onur/ul Urine Nitrite (NEGATIVE) Urine Bilirubin (NEGATIVE) Urine Urobilinogen (0-1) mg/dL Ur Leukocyte Esterase (NEGATIVE) Urine WBC (Auto) (0-5) /HPF Urine RBC (Auto) (0-2) /HPF U Epithel Cells (Auto) (FEW) /HPF Urine Bacteria (Auto) (NEGATIVE) /HPF Urine Mucus (Auto) (NEGATIVE) /HPF Urine Culture Reflexed (NO) Urine Glucose (NEGATIVE) mg/dL Microbiology 01/22/18 Unknown Urine Culture - Preliminary Urine, Void GRAM NEGATIVE ID AND SENSITIVITY PENDING Accuchecks Date 01/23/18 Date 01/23/18 Date 01/22/18 Time 11:30 Time 07:30 Time 21:00 Accucheck Value: 337 Accucheck Value: 227 Accucheck Value: 322 Accucheck Value: 240 - Radiology Impressions Radiology Exams & Impressions: Radiology Procedures Category Date Time Status HEAD WITHOUT CONTRAST [CT] Stat Exams 01/22/18 13:39 Completed - Other Procedures and Tests Respiratory Therapy 01/22/18 19:18 Oxygen NASAL CANNULA 2 lpm Assessment/Plan (1) TIA (transient ischemic attack) Current Visit: Yes Status: Acute Assessment & Plan: Chief Complaint Diagnosis gait disturbance, accidental fall, head contusion Allergies Allergy/AdvReac Type Severity Reaction Status Date / Time liraglutide [From Victoza] AdvReac Severe pancreatiti Verified 01/22/18 13:29 s Penicillins AdvReac MOTHER WAS Verified 01/22/18 13:29 ALLERGIC SO SHE NEVER TOOK IT Vital Signs (Last 24 hours) Temp Pulse Resp BP Pulse Ox 01/23/18 11:57 186/84 01/23/18 11:45 98.1 F 72 20 192/82 93 L 01/23/18 07:51 2 L 01/23/18 07:38 97.5 F 70 21 146/77 97 01/23/18 04:10 179/81 01/23/18 03:47 98.6 F 74 22 192/90 94 L 01/22/18 23:58 98.6 F 76 22 198/86 94 L 01/22/18 19:25 98.2 F 91 H 20 184/84 92 L 01/22/18 19:20 97 01/22/18 17:22 98.3 F 88 18 195/81 93 L 01/22/18 17:11 98.3 F 88 20 195/81 93 L 01/22/18 17:04 91 L 01/22/18 15:46 93 L 01/22/18 14:17 78 16 154/75 97 01/22/18 13:47 97 01/22/18 13:19 98.6 F 82 134/72 93 L Home Medications Medication Instructions Recorded Confirmed Last Taken Type Ergocalciferol (Vitamin D2) 50,000 unit PO 3XW 01/22/18 01/22/18 01/22/18 History [Vitamin D] Insulin Glargine,Hum.rec.anlog 50 unit SQ HS 01/22/18 01/22/18 01/22/18 History [Touadama Hooks Solostaldo] Labetalol HCl [Trandate] 50 mg PO BID 01/22/18 01/22/18 01/22/18 History Mirabegron [Myrbetriq] 25 mg PO DAILY 01/22/18 01/22/18 01/22/18 History Current Medications Generic Name Dose Route Start Last Admin Trade Name Mele PRN Reason Stop Dose Admin Aspirin 81 mg 01/23/18 10:00 01/23/18 10:55 Ecotrin 81 Mg PO 02/22/18 09:59 81 mg DAILY DOROTHY Administration Clopidogrel Bisulfate 75 mg 01/23/18 22:00 01/22/18 23:05 Plavix 75 Mg Tablet PO 02/22/18 21:59 75 mg HS DOROTHY Administration Duloxetine HCl 30 mg 01/23/18 22:00 01/22/18 23:05 Cymbalta 30 Mg Capsule PO 02/22/18 21:59 30 mg HS DOROTHY Administration Ergocalciferol 50,000 unit 01/23/18 10:00 01/23/18 10:55 Vitamin D2 PO 02/22/18 09:59 50,000 unit [email or web address]@1000 DOROTHY Administration Insulin Aspart 0 unit 01/22/18 17:04 01/23/18 11:28 Novolog Insulin SQ 02/21/18 17:03 6 unit UD PRN Administration HYPERGLYCEMIA Insulin Glargine 40 unit 01/23/18 22:00 Lantus Insulin SQ 02/22/18 21:59 HS DOROTHY Labetalol HCl 50 mg 01/22/18 22:00 01/23/18 10:53 Trandate 100 Mg PO 02/21/18 21:59 50 mg BID DOROTHY Administration Metoprolol Succinate 50 mg 01/22/18 22:00 01/23/18 10:54 Toprol Xl 50 Mg PO 02/21/18 21:59 50 mg BID DOROTHY Administration Miscellaneous Information 1 each 01/23/18 07:30 Medication Intervention MC 02/22/18 07:29 .RN TO CHECK WITH PT DOROTHY Simvastatin 40 mg 01/22/18 22:00 01/22/18 22:24 Zocor 20mg PO 02/21/18 21:59 40 mg HS DOROTHY Administration Discontinued Medications Generic Name Dose Route Start Last Admin Trade Name Mele PRN Reason Stop Dose Admin Aspirin 162 mg 01/22/18 15:47 01/22/18 15:58 Baby Aspirin 81 Mg Chew PO 01/22/18 15:48 162 mg STAT ONE Administration Aspirin Confirm 01/22/18 15:55 Baby Aspirin 81 Mg Chew Administered 01/22/18 15:56 Dose 162 mg .ROUTE .STK-MED ONE Clopidogrel Bisulfate Confirm 01/22/18 23:03 Plavix 75 Mg Tablet Administered 01/22/18 23:04 Dose 75 mg .ROUTE .STK-MED ONE Duloxetine HCl Confirm 01/22/18 23:02 Cymbalta 30 Mg Capsule Administered 01/22/18 23:03 Dose 30 mg .ROUTE .STK-MED ONE Insulin Glargine 40 unit 01/22/18 22:55 01/22/18 23:07 Lantus Insulin SQ 01/22/18 22:56 40 unit ONCE ONE Administration Intake & Output (Last 24 hours) 01/21/18 01/22/18 01/23/18 01/24/18 11:59 11:59 11:59 11:59 Intake Total 1040 240 Output Total 2050 300 Balance -1010 -60 Weight 86.3 kg Microbiology Results (Last 24 hours) 01/22/18 Unknown Urine, Void Urine Culture - Preliminary GRAM NEGATIVE ID AND SENSITIVITY PENDING Laboratory Results (Last 24 hours) 01/23/18 01/23/18 01/23/18 05:30 05:30 05:30 WBC 8.2 RBC 3.59 L Hgb 9.9 L Hct 30.9 L MCV 86.1 MCH 27.5 MCHC 32.0 RDW 17.0 H Plt Count 175 MPV 10.4 H Gran % 59.2 Eos # (Auto) 0.50 Absolute Lymphs (auto) 2.11 Absolute Monos (auto) 0.71 Lymphocytes % 25.7 Monocytes % 8.6 Eosinophils % 6.1 H Basophils % 0.4 Absolute Granulocytes 4.87 Basophils # 0.03 Sodium 138 Potassium 4.9 Chloride 103 Carbon Dioxide 28 Anion Gap 11.8 BUN 40 H Creatinine 1.54 H Estimated GFR 35.9 Glucose 227 H Hemoglobin A1c 8.43 H Calcium 9.9 Total Bilirubin 0.30 AST 23 ALT 19 Alkaline Phosphatase 78 Serum Total Protein 6.8 Albumin 3.5 Urine Color Urine Appearance Urine pH Ur Specific [place] Urine Protein Urine Ketones Urine Blood Urine Nitrite Urine Bilirubin Urine Urobilinogen Ur Leukocyte Esterase Urine WBC (Auto) Urine RBC (Auto) U Epithel Cells (Auto) Urine Bacteria (Auto) Urine Mucus (Auto) Urine Culture Reflexed Urine Glucose 01/22/18 01/22/18 01/22/18 Unknown 13:55 13:55 WBC 8.0 RBC 3.56 L Hgb 9.9 L Hct 30.2 L MCV 84.8 MCH 27.8 MCHC 32.8 RDW 16.8 H Plt Count 195 MPV 10.7 H Gran % 67.1 H Eos # (Auto) 0.42 Absolute Lymphs (auto) 1.61 Absolute Monos (auto) 0.57 Lymphocytes % 20.0 L Monocytes % 7.1 Eosinophils % 5.2 H Basophils % 0.6 Absolute Granulocytes 5.39 Basophils # 0.05 Sodium 139 Potassium 4.8 Chloride 104 Carbon Dioxide 26 Anion Gap 13.3 BUN 45 H Creatinine 1.78 H Estimated GFR 30.4 Glucose 236 H Hemoglobin A1c Calcium 9.6 Total Bilirubin 0.30 AST 22 ALT 21 Alkaline Phosphatase 89 Serum Total Protein 6.9 Albumin 3.7 Urine Color YELLOW Urine Appearance SLIGHTLY CLOUDY Urine pH 6.0 Ur Specific [place] 1.014 Urine Protein >=500 Urine Ketones NEGATIVE Urine Blood NEGATIVE Urine Nitrite NEGATIVE Urine Bilirubin NEGATIVE Urine Urobilinogen NEGATIVE Ur Leukocyte Esterase TRACE Urine WBC (Auto) 11-15 Urine RBC (Auto) NONE U Epithel Cells (Auto) NONE Urine Bacteria (Auto) RARE Urine Mucus (Auto) SLIGHT Urine Culture Reflexed YES Urine Glucose 150 Orders (Last 24 hours) Category Date Time Status Bedrest with BRP/BSC ROUTINE Activity 01/22/18 17:04 Active Up With Assistance ROUTINE Activity 01/22/18 17:04 Active Accucheck ACHS Care 01/22/18 17:04 Active Accucheck STAT Care 01/22/18 13:38 Completed Call Admit Doctor for Orders ON ADMISSION Care 01/22/18 17:04 Active Customer Account Specialist STAT Care 01/22/18 13:38 Completed Code Status Order ROUTINE Care 01/22/18 17:04 Active EKG-ER Only STAT Care 01/22/18 13:38 Completed IV Care Q6H Care 01/22/18 17:04 Active IV Insertion STAT Care 01/22/18 13:38 Completed Neuro Checks Q4H Care 01/22/18 17:[address] in Observation ROUTINE Care 01/22/18 17:04 Active Pulse Oximetry (ED) STAT Care 01/22/18 13:38 Completed Telemetry q6h Care 01/22/18 17:04 Active Weight,Daily 0600 Care 01/22/18 17:04 Active Guest Request Runner/Discharge Plan Cons 01/22/18 17:33 Active 1800 Calorie ADA Diet 01/22/18 Dinner Active Nutritional Admission Screen Diet 01/22/18 17:33 Active Discharge Routine Discharge 01/23/18 Ordered Discharge/Telephone Order Routine Discharge 01/23/18 Active HEAD WITHOUT CONTRAST [CT] Stat Exams 01/22/18 13:39 Completed CBC W DIFF AM.LAB Lab 01/23/18 05:30 Completed CBC W DIFF Stat Lab 01/22/18 13:55 Completed CMP AM.LAB Lab 01/23/18 05:30 Completed CMP Stat Lab 01/22/18 13:55 Completed HEMOGLOBIN A1C Routine Lab 01/23/18 05:30 Completed Aspirin 81 gm Chew [Baby Aspirin 81 mg Chew] Med 01/22/18 15:55 Discontinued 162 mg .ROUTE .STK-MED ONE Aspirin 81 gm Chew [Baby Aspirin 81 mg Chew] Med 01/22/18 15:47 Discontinued 162 mg PO STAT ONE Aspirin EC 81 mg [Ecotrin 81 mg] Med 01/23/18 10:00 Active 81 mg PO DAILY Clopidogrel Bisulfate 75 mg [PLAVIX 75 MG Tablet] Med 01/22/18 23:03 Discontinued 75 mg .ROUTE .STK-MED ONE Clopidogrel Bisulfate 75 mg [PLAVIX 75 MG Tablet] Med 01/23/18 22:00 Active 75 mg PO HS Duloxetine HCl 30 mg [Cymbalta 30 MG Capsule] Med 01/22/18 23:02 Discontinued 30 mg .ROUTE .STK-MED ONE Duloxetine HCl 30 mg [Cymbalta 30 MG Capsule] Med 01/23/18 22:00 Active 30 mg PO HS Ergocalciferol (Vitamin D2) [Vitamin D2] Med 01/23/18 10:00 Active 50,000 unit PO [id number]@1000 Insulin Aspart [NovoLOG Insulin] Med 01/22/18 17:04 Active See Dose Instructions SQ UD PRN Insulin Glargine [Lantus Insulin] Med 01/23/18 22:00 Active 40 unit SQ HS Insulin Glargine [Lantus Insulin] Med 01/22/18 22:55 Discontinued 40 unit SQ ONCE ONE Labetalol HCl 100 mg [Trandate 100 MG] Med 01/22/18 22:00 Active 50 mg PO BID Medication Intervention Med 01/23/18 07:30 Active 1 each MC .RN TO CHECK WITH PT Metoprolol Succinate 50 mg [Toprol Xl 50 MG] Med 01/22/18 22:00 Active 50 mg PO BID Simvastatin 20Mg [Zocor 20Mg] Med 01/22/18 22:00 Active 40 mg PO HS PT Eval & Treat (MD Order) ROUTINE PT 01/23/18 09:07 Completed PT Screen per Nursing Assess ROUTINE PT 01/23/18 08:49 Completed Oxygen NASAL CANNULA 2 lpm RT 01/22/18 19:18 Active Pulse Oximetry CONTINUOUS RT 01/22/18 17:04 Active Patient Care Notes (Last 24 hours) 01/23/18 12:45 Nursing Note by Catalina Thomas Discharge instructions and education given and understood. Initialized on 01/23/18 12:45 - END OF NOTE 01/23/18 12:15 Case Management Note by Miriam Mccord S/W RUSTY OCAMPO, PT REGARDING NEED FOR A WALKER FOR THE PATIENT, AND ARRANGING FOR PT/OT EVAL AND TREAT OUTPATIENT HERE AT [facility]. Initialized on 01/23/18 12:15 - END OF NOTE 01/23/18 10:24 Respiratory Note by Ilsa Zafar PER RN ERQUEST, . CHECKING ON PT TO SEE IF THEY NEED HOME O2 OR QUALIFIED. UPON EXPLAINING TO PT WHAT I WAS DOING , SHE STATED THAT SHE DID NOT WANT HOME O2 AND WOULD NOT WEAR ITSTATMENT. INFORMED RN OF PTS Initialized on 01/23/18 10:24 - END OF NOTE 01/23/18 10:15 Nursing Note by Catalina Thomas Noted pt SPO2 dropping on RA; pt refused to assessed for home O2; refusing to have at home stating I will not wear it. Initialized on 01/23/18 10:15 - END OF NOTE 01/22/18 19:21 Respiratory Note by Gina Moreno SATS DROPPED TO 88-89% WHILE PT WAS SLEEPING. PLACED ON 2L OXYGEN VIA NASAL CANNULA. SATS UP TO 97% Initialized on 01/22/18 19:21 - END OF NOTE Code(s): G45.9 - TRANSIENT CEREBRAL ISCHEMIC ATTACK, UNSPECIFIED (2) Type 2 diabetes mellitus Current Visit: No Status: Chronic Hospital Summary - Hospital Course Hospital Course: Last Vital Signs Temp 98.1 F 01/23/18 11:45 Pulse 72 01/23/18 11:45 Resp 20 01/23/18 11:45 BP 186/84 01/23/18 11:57 Pulse Ox 93 L 01/23/18 11:45 Allergies liraglutide [From Victoza] Adverse Reaction (Severe, Verified 01/22/18 13:29) pancreatitis Penicillins Adverse Reaction (Verified 01/22/18 13:29) MOTHER WAS ALLERGIC SO SHE NEVER TOOK IT Active Medications Aspirin (Ecotrin 81 Mg) 81 mg PO DAILY [facility] Stop: 02/22/18 09:59 Last Admin: 01/23/18 10:55 Dose: 81 mg Clopidogrel Bisulfate (Plavix 75 Mg Tablet) 75 mg PO HS [facility] Stop: 02/22/18 21:59 Last Admin: 01/22/18 23:05 Dose: 75 mg Duloxetine HCl (Cymbalta 30 Mg Capsule) 30 mg PO HS [facility] Stop: 02/22/18 21:59 Last Admin: 01/22/18 23:05 Dose: 30 mg Ergocalciferol (Vitamin D2) 50,000 unit PO [id number]@1000 [facility] Stop: 02/22/18 09:59 Last Admin: 01/23/18 10:55 Dose: 50,000 unit Insulin Aspart (Novolog Insulin) 0 unit SQ UD PRN PRN Reason: HYPERGLYCEMIA Stop: 02/21/18 17:03 Last Admin: 01/23/18 11:28 Dose: 6 unit Insulin Glargine (Lantus Insulin) 40 unit SQ HS DOROTHY Stop: 02/22/18 21:59 Labetalol HCl (Trandate 100 Mg) 50 mg PO BID DOROTHY Stop: 02/21/18 21:59 Last Admin: 01/23/18 10:53 Dose: 50 mg Metoprolol Succinate (Toprol Xl 50 Mg) 50 mg PO BID [facility] Stop: 02/21/18 21:59 Last Admin: 01/23/18 10:54 Dose: 50 mg Miscellaneous Information (Medication Intervention) 1 each .RN TO CHECK WITH PT DOROTHY Stop: 02/22/18 07:29 Simvastatin (Zocor 20mg) 40 mg PO HS DOROTHY Stop: 02/21/18 21:59 Last Admin: 01/22/18 22:24 Dose: 40 mg Intake & Output 01/23/18 01/24/18 11:59 11:59 Intake Total 1040 240 Output Total 2050 300 Balance -1010 -60 Weight 86.3 kg Orders 01/22/18 19:18 Oxygen NASAL CANNULA 2 lpm 01/22/18 22:00 Labetalol HCl 100 mg [Trandate 100 MG] 50 mg PO BID Metoprolol Succinate 50 mg [Toprol Xl 50 MG] 50 mg PO BID Simvastatin 20Mg [Zocor 20Mg] 40 mg PO HS 01/23/18 Discharge Routine Discharge/Telephone Order Routine 01/23/18 07:30 Medication Intervention 1 each .RN TO CHECK WITH PT 01/23/18 10:00 Aspirin EC 81 mg [Ecotrin 81 mg] 81 mg PO DAILY Ergocalciferol (Vitamin D2) [Vitamin D2] 50,000 unit PO [id number]@1000 01/23/18 22:00 Clopidogrel Bisulfate 75 mg [PLAVIX 75 MG Tablet] 75 mg PO HS Duloxetine HCl 30 mg [Cymbalta 30 MG Capsule] 30 mg PO HS Insulin Glargine [Lantus Insulin] 40 unit SQ HS Lab Tests 01/22/18 01/22/18 01/22/18 13:55 13:55 Unknown WBC 8.0 RBC 3.56 L Hgb 9.9 L Hct 30.2 L MCV 84.8 MCH 27.8 MCHC 32.8 RDW 16.8 H Plt Count 195 MPV 10.7 H Gran % 67.1 H Eos # (Auto) 0.42 Absolute Lymphs (auto) 1.61 Absolute Monos (auto) 0.57 Lymphocytes % 20.0 L Monocytes % 7.1 Eosinophils % 5.2 H Basophils % 0.6 Absolute Granulocytes 5.39 Basophils # 0.05 Sodium 139 Potassium 4.8 Chloride 104 Carbon Dioxide 26 Anion Gap 13.3 BUN 45 H Creatinine 1.78 H Estimated GFR 30.4 Glucose 236 H Hemoglobin A1c Calcium 9.6 Total Bilirubin 0.30 AST 22 ALT 21 Alkaline Phosphatase 89 Serum Total Protein 6.9 Albumin 3.7 Urine Color YELLOW Urine Appearance SLIGHTLY CLOUDY Urine pH 6.0 Ur Specific [place] 1.014 Urine Protein >=500 Urine Ketones NEGATIVE Urine Blood NEGATIVE Urine Nitrite NEGATIVE Urine Bilirubin NEGATIVE Urine Urobilinogen NEGATIVE Ur Leukocyte Esterase TRACE Urine WBC (Auto) 11-15 Urine RBC (Auto) NONE U Epithel Cells (Auto) NONE Urine Bacteria (Auto) RARE Urine Mucus (Auto) SLIGHT Urine Culture Reflexed YES Urine Glucose 150 01/23/18 01/23/18 01/23/18 05:30 05:30 05:30 WBC 8.2 RBC 3.59 L Hgb 9.9 L Hct 30.9 L MCV 86.1 MCH 27.5 MCHC 32.0 RDW 17.0 H Plt Count 175 MPV 10.4 H Gran % 59.2 Eos # (Auto) 0.50 Absolute Lymphs (auto) 2.11 Absolute Monos (auto) 0.71 Lymphocytes % 25.7 Monocytes % 8.6 Eosinophils % 6.1 H Basophils % 0.4 Absolute Granulocytes 4.87 Basophils # 0.03 Sodium 138 Potassium 4.9 Chloride 103 Carbon Dioxide 28 Anion Gap 11.8 BUN 40 H Creatinine 1.54 H Estimated GFR 35.9 Glucose 227 H Hemoglobin A1c 8.43 H Calcium 9.9 Total Bilirubin 0.30 AST 23 ALT 19 Alkaline Phosphatase 78 Serum Total Protein 6.8 Albumin 3.5 Urine Color Urine Appearance Urine pH Ur Specific [place] Urine Protein Urine Ketones Urine Blood Urine Nitrite Urine Bilirubin Urine Urobilinogen Ur Leukocyte Esterase Urine WBC (Auto) Urine RBC (Auto) U Epithel Cells (Auto) Urine Bacteria (Auto) Urine Mucus (Auto) Urine Culture Reflexed Urine Glucose Microbiology 01/22/18 Unknown Urine, Void Urine Culture - Preliminary GRAM NEGATIVE ID AND SENSITIVITY PENDING - Vitals & Intake/Output Vital Signs: Vital Signs Temperature 98.1 F 01/23/18 11:45 Pulse Rate 72 11/30/18 11:45 Respiratory Rate 20 01/23/18 11:45 Blood Pressure 186/84 01/23/18 11:57 O2 Sat by Pulse Oximetry 93 L 01/23/18 11:45 Oxygen-Last Documented O2 Percentage 2 Liters = 28% Intake & Output: Intake & Output 01/21/18 01/22/18 01/23/18 01/24/18 11:59 11:59 11:59 11:59 Intake Total 1040 240 Output Total 2050 300 Balance -1010 -60 Weight 86.3 kg - Lab Result Diagrams: 01/23/18 05:30 01/23/18 05:30 Lab Results-Last 24 Hrs: Accuchecks Date 01/23/18 Date 01/23/18 Date 01/22/18 Time 11:30 Time 07:30 Time 21:00 Accucheck Value: 337 Accucheck Value: 227 Accucheck Value: 322 Accucheck Value: 240 Lab Results-Last 24 Hours 01/22/18 01/22/18 01/22/18 Range/Units 13:55 13:55 Unknown WBC 8.0 (4.0-10.5) K/mm3 RBC 3.56 L (4.1-5.4) M/mm3 Hgb 9.9 L (12.0-16.0) gm/dl Hct 30.2 L (35-47) % MCV 84.8 (78-100) fl MCH 27.8 (26-32) pg MCHC 32.8 (32-36) g/dl RDW 16.8 H (11.5-14.0) % Plt Count 195 (150-450) K/mm3 MPV 10.7 H (6-9.5) fl Gran % 67.1 H (36.0-66.0) % Eos # (Auto) 0.42 (0-0.5) Absolute Lymphs (auto) 1.61 (1.0-4.6) Absolute Monos (auto) 0.57 (0.0-1.3) Lymphocytes % 20.0 L (24.0-44.0) % Monocytes % 7.1 (0.0-12.0) % Eosinophils % 5.2 H (0.00-5.0) % Basophils % 0.6 (0.0-0.4) % Absolute Granulocytes 5.39 (1.4-6.9) Basophils # 0.05 (0-0.4) Sodium 139 (137-145) mmol/L Potassium 4.8 (3.5-5.1) mmol/L Chloride 104 (98-107) mmol/L Carbon Dioxide 26 (22-30) mmol/L Anion Gap 13.3 (5-15) MEQ/L BUN 45 H (7-17) mg/dL Creatinine 1.78 H (0.52-1.04) mg/dL Estimated GFR 30.4 ML/MIN Glucose 236 H (74-106) mg/dL Hemoglobin A1c (4.5-6.0) % Calcium 9.6 (8.4-10.2) mg/dL Total Bilirubin 0.30 (0.2-1.3) mg/dL AST 22 (14-36) U/L ALT 21 (0-35) U/L Alkaline Phosphatase 89 (38-126) U/L Serum Total Protein 6.9 (6.3-8.2) g/dL Albumin 3.7 (3.5-5.0) g/dL Urine Color YELLOW (YELLOW) Urine Appearance SLIGHTLY CLOUDY (CLEAR) Urine pH 6.0 (5-6) Ur Specific [place] 1.014 (1.005-1.025) Urine Protein >=500 (Negative) Urine Ketones NEGATIVE (NEGATIVE) Urine Blood NEGATIVE (0-5) Onur/ul Urine Nitrite NEGATIVE (NEGATIVE) Urine Bilirubin NEGATIVE (NEGATIVE) Urine Urobilinogen NEGATIVE (0-1) mg/dL Ur Leukocyte Esterase TRACE (NEGATIVE) Urine WBC (Auto) 11-15 (0-5) /HPF Urine RBC (Auto) NONE (0-2) /HPF U Epithel Cells (Auto) NONE (FEW) /HPF Urine Bacteria (Auto) RARE (NEGATIVE) /HPF Urine Mucus (Auto) SLIGHT (NEGATIVE) /HPF Urine Culture Reflexed YES (NO) Urine Glucose 150 (NEGATIVE) mg/dL 01/23/18 01/23/18 01/23/18 Range/Units 05:30 05:30 05:30 WBC 8.2 (4.0-10.5) K/mm3 RBC 3.59 L (4.1-5.4) M/mm3 Hgb 9.9 L (12.0-16.0) gm/dl Hct 30.9 L (35-47) % MCV 86.1 (78-100) fl MCH 27.5 (26-32) pg MCHC 32.0 (32-36) g/dl RDW 17.0 H (11.5-14.0) % Plt Count 175 (150-450) K/mm3 MPV 10.4 H (6-9.5) fl Gran % 59.2 (36.0-66.0) % Eos # (Auto) 0.50 (0-0.5) Absolute Lymphs (auto) 2.11 (1.0-4.6) Absolute Monos (auto) 0.71 (0.0-1.3) Lymphocytes % 25.7 (24.0-44.0) % Monocytes % 8.6 (0.0-12.0) % Eosinophils % 6.1 H (0.00-5.0) % Basophils % 0.4 (0.0-0.4) % Absolute Granulocytes 4.87 (1.4-6.9) Basophils # 0.03 (0-0.4) Sodium 138 (137-145) mmol/L Potassium 4.9 (3.5-5.1) mmol/L Chloride 103 (98-107) mmol/L Carbon Dioxide 28 (22-30) mmol/L Anion Gap 11.8 (5-15) MEQ/L BUN 40 H (7-17) mg/dL Creatinine 1.54 H (0.52-1.04) mg/dL Estimated GFR 35.9 ML/MIN Glucose 227 H (74-106) mg/dL Hemoglobin A1c 8.43 H (4.5-6.0) % Calcium 9.9 (8.4-10.2) mg/dL Total Bilirubin 0.30 (0.2-1.3) mg/dL AST 23 (14-36) U/L ALT 19 (0-35) U/L Alkaline Phosphatase 78 (38-126) U/L Serum Total Protein 6.8 (6.3-8.2) g/dL Albumin 3.5 (3.5-5.0) g/dL Urine Color (YELLOW) Urine Appearance (CLEAR) Urine pH (5-6) Ur Specific [place] (1.005-1.025) Urine Protein (Negative) Urine Ketones (NEGATIVE) Urine Blood (0-5) Onur/ul Urine Nitrite (NEGATIVE) Urine Bilirubin (NEGATIVE) Urine Urobilinogen (0-1) mg/dL Ur Leukocyte Esterase (NEGATIVE) Urine WBC (Auto) (0-5) /HPF Urine RBC (Auto) (0-2) /HPF U Epithel Cells (Auto) (FEW) /HPF Urine Bacteria (Auto) (NEGATIVE) /HPF Urine Mucus (Auto) (NEGATIVE) /HPF Urine Culture Reflexed (NO) Urine Glucose (NEGATIVE) mg/dL Micro Results-Entire Visit: Microbiology 01/22/18 Unknown Urine Culture - Preliminary Urine, Void GRAM NEGATIVE ID AND SENSITIVITY PENDING Accuchecks Date 01/23/18 Date 01/23/18 Date 01/22/18 Time 11:30 Time 07:30 Time 21:00 Accucheck Value: 337 Accucheck Value: 227 Accucheck Value: 322 Accucheck Value: 240 - Radiology Exams Ordered Rad Exams-Entire Visit: Radiology Procedures Category Date Time Status HEAD WITHOUT CONTRAST [CT] Stat Exams 01/22/18 13:39 Completed - Procedures and Test Procedures and Tests throughout Hospitalization: Therapy Orders & Screens 01/22/18 19:18 Oxygen NASAL CANNULA 2 lpm Comment: Diagnosis: gait disturbance, accidental fall, head contusion 01/23/18 08:49 PT Screen per Nursing Assess ROUTINE Comment: for a walker Physician Instructions: walker Reason For Exam: unsteady gait Diagnosis: gait disturbance, accidental fall, head contusion Open Wound/Cellutlitis/Pressure Ulcers: No Acute Fx/ORIF/Change in wt bearing status: No Severe MUSCULOSKELETAL pain: No ADL Dysfunction: No Acute CVA w/Hemiparesis/Hemiplegia: No Decreased Functional Mobility/Strength: No Sprain/Strain: No Acute Post-op Mobility Dysfunction: No Total Points: 0 01/23/18 09:07 PT Eval & Treat ( Order) ROUTINE Reason for Eval:: EVAL FOR A WALKER Diagnosis: gait disturbance, accidental fall, head contusion - Discharge Discharge Date: 01/23/18 Disposition: Home, Self-Care Condition: Stable Prescriptions: No Action Aspirin [Baby Aspirin] 81 mg PO DAILY Metoprolol Succinate 50 mg [Toprol Xl 50 MG] 50 mg PO BID Pravastatin Sodium 40 mg PO DAILY Duloxetine HCl 30 mg [Cymbalta 30 MG Capsule] 30 mg PO DAILY Clopidogrel Bisulfate 75 mg [PLAVIX 75 MG Tablet] 75 mg PO DAILY Insulin Glargine,Hum.rec.anlog [[place]s Solostar] 50 unit SQ HS Mirabegron [Myrbetriq] 25 mg PO DAILY Ergocalciferol (Vitamin D2) [Vitamin D] 50,000 unit PO 3XW Labetalol HCl [Trandate] 50 mg PO BID Instructions: Preventing Falls in the Older Adult, Transient Ischemic Attack ( DC), Contusion (DC), Preventing Falls Follow up with: FANTA TREVIÑO MD [Primary Care Provider] - 01/30/18 3:15 pm Forms: Discharge Instructions
[2018-01-23] MEDS ORDERED: PLAVIX 75 MG Tablet PO SCH (22:00)
[2018-01-23] MEDS ORDERED: Cymbalta 30 MG Capsule PO SCH (22:00)
[2018-01-23] MEDS ORDERED: INSULIN GLARGINE HUM REC ANLOG 50 UNIT SQ SCH (22:00)
[2018-01-23] MEDS ORDERED: Lantus Insulin SQ SCH (22:00)
== END 2018-01-23 13:05 | disposition home or self-care (01) ==
LOC: ED 12:57 → MED SURG 17:01
PROVIDERS: ADMIT General Practice; ATTEND General Practice
DX: G45.9 Transient cerebral ischemic attack, unspecified (principal); Z86.73 Personal history of transient ischemic attack (TIA), and cerebral infarction without residual deficits; E78.5 Hyperlipidemia, unspecified; Z86.010 Personal history of colon polyps; G51.0 Bell's palsy; Z79.899 Other long term (current) drug therapy
CPT/HCPCS: 36000; 36415; 70450; 80053; 81001; 82962; 83036; 85025; 87077; 87086; 87186; 93005; 93041; 93268; 94762; 97161; 99285; G0378; A9270-GY

== ENCOUNTER 2018-08-14 09:58 | Emergency (ER) | payer MEDICARE, OTHER ==
[2018-08-14] MEDS ORDERED: Catapres 0.1 MG PO ONE (10:36)
--- NOTE | 2018-08-14 10:37 | ERPHSYRPT ---
- History of Present Illness Time Seen by Provider: 08/14/18 10:32 Source: patient Exam Limitations: no limitations Patient Subjective Stated Complaint: pt here for hypertension, she states she was at infusion center and had high blood pressure and was sent to be seen in er Triage Nursing Assessment: pt walked in , alert, resp easy, skin w/d/p, she states she feels her normal and has no cos Physician History: Pt was at the infusion center this morning, for iron infusion. Her blood pressure was 205/85, her physician was contacted, and sent her home to rest 2 hours, recheck it and come here if it was still high. She denies any complaints , no headaches, focal weakness, no visual changes, slurred speech, chest pain, SOB, dizziness, nausea or other complaints. She ambulates without difficulty. She admits checking her blood sugar this morning and it was > 400, she states, she took all her medications this morning. She took 200 mg Labetalol, 50 mg Topril XL, 25 mg HCTZ and her 25 units of Novolog insulin too. Timing/Duration: today Severity: moderate Modifying Factors: Improves With: nothing Associated Symptoms: denies symptoms Allergies/Adverse Reactions: liraglutide [From Victoza] Adverse Reaction (Severe, Verified 08/14/18 10:17) pancreatitis Penicillins Adverse Reaction (Verified 08/14/18 10:17) MOTHER WAS ALLERGIC SO SHE NEVER TOOK IT Home Medications: Aspirin [Baby Aspirin] 81 mg PO DAILY 12/14/12 [History] Pravastatin Sodium 40 mg PO DAILY 07/18/15 [History] Clopidogrel Bisulfate 75 mg [PLAVIX 75 MG Tablet] 75 mg PO DAILY 09/27/16 [History] Duloxetine HCl 30 mg [Cymbalta 30 MG Capsule] 30 mg PO DAILY 09/27/16 [ History] Ergocalciferol (Vitamin D2) [Vitamin D] 50,000 unit PO 3XW 01/22/18 [History] Mirabegron [Myrbetriq] 25 mg PO DAILY 01/22/18 [History] Cyanocobalamin (Vitamin B-12) [Vitamin B-12] 1,000 mcg PO DAILY 08/07/18 [ History] Donepezil HCl 5 mg PO HS 08/07/18 [History] Insulin Aspart [NovoLOG Insulin] 25 unit SQ AC 08/07/18 [History] Hx Tetanus, Diphtheria Vaccination/Date Given: No Hx Influenza Vaccination/Date Given: No Hx Pneumococcal Vaccination/Date Given: No Immunizations Up to Date: Yes - Review of Systems Constitutional: No Symptoms Respiratory: No Symptoms Cardiac: No Symptoms Abdominal/Gastrointestinal: No Symptoms Neurological: No Symptoms All Other Systems: Reviewed and Negative - Past Medical History Pertinent Past Medical History: Yes Neurological History: Stroke ENT History: Cataracts Cardiac History: Hypertension Respiratory History: No Pertinent History Endocrine Medical History: Diabetes Type II Musculoskeletal History: Arthritis GI Medical History: Diverticulitis History: No Pertinent History Psycho-Social History: No Pertinent History Female Reproductive Disorders: No Pertinent History Other Medical History: CVA in 2014. TIA 2017 - Past Surgical History Past Surgical History: Yes Neuro Surgical History: No Pertinent History Cardiac: No Pertinent History Respiratory: No Pertinent History Gastrointestinal: Cholecystectomy, Hernia Repair Genitourinary: No Pertinent History Musculoskeletal: No Pertinent History Female Surgical History: Hysterectomy, Other Other Surgical History: GOITER removed, right ovary removed, polpys removed colon. thyroid biopsy. Retina surgery both eyes - Social History Smoking Status: Never smoker Exposure to second hand smoke: Yes Drug Use: none Patient Lives Alone: No - Female History Hx Last Menstrual Period: psot Hx Now: No - Nursing Vital Signs Nursing Vital Signs: Initial Vital Signs Temperature 98.4 F 08/14/18 10:12 Pulse Rate 70 08/14/18 10:12 Respiratory Rate 16 08/14/18 10:12 Blood Pressure 194/84 08/14/18 10:12 O2 Sat by Pulse Oximetry 96 08/14/18 10:12 Pain Scale Pain Intensity 0 - Physical Exam General Appearance: no apparent distress Eye Exam: PERRL/EOMI, eyes nml inspection Ears, Nose, Throat Exam: normal ENT inspection, pharynx normal Neck Exam: normal inspection, non-tender, supple, No carotid bruit, No JVD Respiratory Exam: normal breath sounds, lungs clear, airway intact, No chest tenderness Cardiovascular Exam: regular rate/rhythm, normal heart sounds, normal peripheral pulses, No murmur Gastrointestinal/Abdomen Exam: soft, normal bowel sounds, No tenderness Back Exam: normal inspection, No CVA tenderness Extremity Exam: normal inspection Neurologic Exam: alert, oriented x 3, cooperative, normal mood/affect, nml cerebellar function, No motor deficits, No motor weakness, No facial droop Skin Exam: normal color, warm, dry, No rash, No petechiae, No diaphoresis Lymphatic Exam: No adenopathy SpO2 Interpretation: normal SpO2: 96 O2 Delivery: Room Air - Course Nursing assessment & vital signs reviewed: Yes EKG Interpreted by Me: RATE (68/min), Left [place] Deviation, NORMAL INTERVALS, Left Bundle Branch Block, Non-specific ST Changes Ordered Tests: Active Orders 24 hr Category Date Time Status ACCUCHECK [Accucheck] STAT Care 08/14/18 14:05 Active Outpatient Services Director STAT Care 08/14/18 10:30 Active EKG-ER Only STAT Care 08/14/18 10:29 Active IV Insertion STAT Care 08/14/18 10:29 Active CBC W DIFF Stat Lab 08/14/18 10:45 Completed CK-Creatinine Phosphokinase Stat Lab 08/14/18 10:45 Completed CMP Stat Lab 08/14/18 10:45 Completed NT PRO BNP Stat Lab 08/14/18 10:45 Completed PROTIME WITH INR Stat Lab 08/14/18 10:45 Completed PTT Stat Lab 08/14/18 10:45 Completed TROPONIN Q3H Lab 08/14/18 10:45 Completed TROPONIN Q3H Lab 08/14/18 13:20 Completed TROPONIN Q3H Lab 08/14/18 16:30 Ordered TROPONIN Q3H Lab 08/14/18 19:30 Ordered TROPONIN Q3H Lab 08/14/18 22:30 Ordered UA W/RFX UR CULTURE Stat Lab 08/14/18 11:14 Completed Medication Summary Discontinued Medications Generic Name Dose Route Start Last Admin Trade Name Mele PRN Reason Stop Dose Admin Clonidine 0.1 mg 08/14/18 10:36 08/14/18 10:59 Catapres 0.1 Mg PO 08/14/18 10:37 0.1 mg STAT ONE Administration Clonidine Confirm 08/14/18 10:58 Catapres 0.1 Mg Administered 08/14/18 10:59 Dose 0.1 mg .ROUTE .STK-MED ONE Sodium Chloride 1,000 mls @ 999 mls/hr 08/14/18 12:56 08/14/18 13:15 Sodium Chloride 0.9% 1000 Ml IV 08/14/18 13:56 999 mls/hr .Q1H1M STA Administration Sodium Chloride Confirm 08/14/18 13:13 Sodium Chloride 0.9% 1000 Ml Administered 08/14/18 13:14 Dose 1,000 mls @ ud .ROUTE .Home-Account Insulin Human Regular 10 unit 08/14/18 12:56 08/14/18 13:16 Novolin R IV 08/14/18 12:57 10 unit STAT ONE Administration Insulin Human Regular Confirm 08/14/18 13:13 Novolin R Administered 08/14/18 13:14 Dose 10 unit .[facility] Lab/Rad Data: Laboratory Result Diagrams 08/14/18 10:45 08/14/18 10:45 Laboratory Results 08/14/18 08/14/18 08/14/18 Range/Units 13:20 11:14 10:45 WBC (4.0-10.5) K/mm3 RBC (4.1-5.4) M/mm3 Hgb (12.0-16.0) gm/dl Hct (35-47) % MCV (78-100) fl MCH (26-32) pg MCHC (32-36) g/dl RDW (11.5-14.0) % Plt Count (150-450) K/mm3 MPV (6-9.5) fl Gran % (36.0-66.0) % Eos # (Auto) (0-0.5) Absolute Lymphs (auto) (1.0-4.6) Absolute Monos (auto) (0.0-1.3) Lymphocytes % (24.0-44.0) % Monocytes % (0.0-12.0) % Eosinophils % (0.00-5.0) % Basophils % (0.0-0.4) % Absolute Granulocytes (1.4-6.9) Basophils # (0-0.4) PT (9.95-12.35) SECONDS INR (0.8-3.0) APTT (25.3-37.0) SECONDS Sodium (137-145) mmol/L Potassium (3.5-5.1) mmol/L Chloride (98-107) mmol/L Carbon Dioxide (22-30) mmol/L Anion Gap (5-15) MEQ/L BUN (7-17) mg/dL Creatinine (0.52-1.04) mg/dL Estimated GFR ML/MIN Glucose (74-106) mg/dL Calcium (8.4-10.2) mg/dL Total Bilirubin (0.2-1.3) mg/dL AST (14-36) U/L ALT (0-35) U/L Alkaline Phosphatase (38-126) U/L Creatine Kinase (30-135) U/L Troponin I < 0.012 < 0.012 (0.000-0.034) ng/mL NT-Pro-B Natriuret Pep (0-900) pg/mL Serum Total Protein (6.3-8.2) g/dL Albumin (3.5-5.0) g/dL Urine Color YELLOW (YELLOW) Urine Appearance CLEAR (CLEAR) Urine pH 6.0 (5-6) Ur Specific [place] 1.011 (1.005-1.025) Urine Protein >=500 (Negative) Urine Ketones NEGATIVE (NEGATIVE) Urine Blood SMALL (0-5) Onur/ul Urine Nitrite NEGATIVE (NEGATIVE) Urine Bilirubin NEGATIVE (NEGATIVE) Urine Urobilinogen NEGATIVE (0-1) mg/dL Ur Leukocyte Esterase NEGATIVE (NEGATIVE) Urine WBC (Auto) NONE (0-5) /HPF Urine RBC (Auto) NONE (0-2) /HPF U Epithel Cells (Auto) NONE (FEW) /HPF Urine Bacteria (Auto) NONE (NEGATIVE) /HPF Urine Mucus (Auto) SLIGHT (NEGATIVE) /HPF Urine Culture Reflexed NO (NO) Urine Glucose >=500 (NEGATIVE) mg/dL 08/14/18 08/14/18 08/14/18 Range/Units 10:45 10:45 10:45 WBC 6.5 (4.0-10.5) K/mm3 RBC 3.49 L (4.1-5.4) M/mm3 Hgb 10.0 L (12.0-16.0) gm/dl Hct 30.3 L (35-47) % MCV 86.8 (78-100) fl MCH 28.6 (26-32) pg MCHC 33.0 (32-36) g/dl RDW 16.0 H (11.5-14.0) % Plt Count 151 (150-450) K/mm3 MPV 10.5 H (6-9.5) fl Gran % 65.0 (36.0-66.0) % Eos # (Auto) 0.35 (0-0.5) Absolute Lymphs (auto) 1.43 (1.0-4.6) Absolute Monos (auto) 0.47 (0.0-1.3) Lymphocytes % 21.9 L (24.0-44.0) % Monocytes % 7.2 (0.0-12.0) % Eosinophils % 5.4 H (0.00-5.0) % Basophils % 0.5 (0.0-0.4) % Absolute Granulocytes 4.24 (1.4-6.9) Basophils # 0.03 (0-0.4) PT 10.9 (9.95-12.35) SECONDS INR 0.97 (0.8-3.0) APTT 30.2 (25.3-37.0) SECONDS Sodium 136 L (137-145) mmol/L Potassium 4.0 (3.5-5.1) mmol/L Chloride 101 (98-107) mmol/L Carbon Dioxide 24 (22-30) mmol/L Anion Gap 14.2 (5-15) MEQ/L BUN 39 H (7-17) mg/dL Creatinine 1.66 H (0.52-1.04) mg/dL Estimated GFR 33.0 ML/MIN Glucose 420 H (74-106) mg/dL Calcium 9.8 (8.4-10.2) mg/dL Total Bilirubin 0.50 (0.2-1.3) mg/dL AST 18 (14-36) U/L ALT 20 (0-35) U/L Alkaline Phosphatase 108 (38-126) U/L Creatine Kinase 104 (30-135) U/L Troponin I (0.000-0.034) ng/mL NT-Pro-B Natriuret Pep 368 (0-900) pg/mL Serum Total Protein 7.0 (6.3-8.2) g/dL Albumin 3.7 (3.5-5.0) g/dL Urine Color (YELLOW) Urine Appearance (CLEAR) Urine pH (5-6) Ur Specific [place] (1.005-1.025) Urine Protein (Negative) Urine Ketones (NEGATIVE) Urine Blood (0-5) Onur/ul Urine Nitrite (NEGATIVE) Urine Bilirubin (NEGATIVE) Urine Urobilinogen (0-1) mg/dL Ur Leukocyte Esterase (NEGATIVE) Urine WBC (Auto) (0-5) /HPF Urine RBC (Auto) (0-2) /HPF U Epithel Cells (Auto) (FEW) /HPF Urine Bacteria (Auto) (NEGATIVE) /HPF Urine Mucus (Auto) (NEGATIVE) /HPF Urine Culture Reflexed (NO) Urine Glucose (NEGATIVE) mg/dL - Progress Progress: improved Progress Note: 08/14/18 15:01 Pt was given Clonidine 0.1 mg PO, 10 units IV Insulin and 1000 ml NS bolus, her blood sugar is 96, blood pressure improved, (132/80) reviewed her labs together , she is going to be discharged to rest x 2-3 days, check her blood pressure and glucose frequently and follow up with her physician in 2-3 days. 08/14/18 15:05 Counseled pt/family regarding: lab results, diagnosis, need for follow-up - Departure Departure Disposition: Home Clinical Impression: Hyperglycemia Hypertension Qualifiers: Hypertension type: unspecified Qualified Code(s): I10 - Essential (primary) hypertension Condition: Stable Critical Care Time: No Referrals: FANTA TREVIÑO MD [Primary Care Provider] - Instructions: Malignant Hypertension (DC), Hyperglycemia, Adult (DC) Additional Instructions: Rest x 2-3 days, check your blood sugar and blood pressure frequently and follow up with your physician in 2-3 days, return if severe headaches, dizziness , chest pain, or blood pressure > 200/120!
[2018-08-14 10:57] LABS: BASOPHIL % 0.5 % (0.0-0.4); Basophil (Absolute #) 0.03 (0-0.4); Eosinophil % 5.4 % (0.00-5.0); Eosinophil (Absolute #) 0.35 (0-0.5); Granulocyte Absolute (ANC) 4.24 (1.4-6.9); Hematocrit 30.3 % (35-47); Lymphocyte (Absolute #) 1.43 (1.0-4.6); Lymphocytes % 21.9 % (24.0-44.0); Mean Cell Volume 86.8 fl (78-100); Mean Corpuscular Hemoglobin 28.6 pg (26-32); Mean Platelet Volume 10.5 fl (6-9.5); Monocytes % 7.2 % (0.0-12.0); Platelet Count 151 K/mm3 (150-450); Red Blood Count 3.49 M/mm3 (4.1-5.4); White Blood Count 6.5 K/mm3 (4.0-10.5)
[2018-08-14] MEDS ORDERED: Catapres 0.1 MG ONE (10:58)
[2018-08-14 11:00] LABS: INR 0.97 (0.8-3.0); PROTIME 10.9 SECONDS (9.95-12.35)
[2018-08-14 11:03] LABS: PTT 30.2 SECONDS (25.3-37.0)
[2018-08-14 11:14] LABS: ALBUMIN 3.7 g/dL (3.5-5.0); ANION GAP 14.2 MEQ/L (5-15); BILIRUBIN,TOTAL 0.5 mg/dL (0.2-1.3); Calcium 9.8 mg/dL (8.4-10.2); Creatinine 1 1.66 mg/dL (0.52-1.04)
[2018-08-14 11:56] LABS: Appearance CLEAR (CLEAR); Bilirubin NEGATIVE (NEGATIVE); Blood SMALL Ery/ul (0-5); Glucose >=500 mg/dL (NEGATIVE); Ketones NEGATIVE (NEGATIVE); Leukocyte Esterase NEGATIVE (NEGATIVE); Mucus SLIGHT /HPF (NEGATIVE); Nitrite NEGATIVE (NEGATIVE); Protein,Urine Dip >=500 (Negative); Specific Gravity 1.011 (1.005-1.025); Urobilinogen NEGATIVE mg/dL (0-1)
[2018-08-14] MEDS ORDERED: NovoLIN R IV ONE (12:56)
[2018-08-14] MEDS ORDERED: Sodium Chloride 0.9% 1000 ML 1,000 ML IV STA (12:56)
[2018-08-14] MEDS ORDERED: NovoLIN R ONE (13:13)
[2018-08-14] MEDS ORDERED: Sodium Chloride 0.9% 1000 ML 1,000 ML ONE (13:13)
[2018-08-14 15:05] VITALS: O2SAT 96
[2018-08-14 16:36] VITALS: BP 173/87; PULSE 66
== END 2018-08-14 16:39 | disposition home or self-care (01) ==
LOC: ED 09:58
DX: E11.65 Type 2 diabetes mellitus with hyperglycemia (principal); I10 Essential (primary) hypertension; Z79.4 Long term (current) use of insulin; M19.90 Unspecified osteoarthritis, unspecified site; Z79.899 Other long term (current) drug therapy; Z86.73 Personal history of transient ischemic attack (TIA), and cerebral infarction without residual deficits
CPT/HCPCS: 36000; 36415; 80053; 81001; 82550; 82962; 83880; 84484; 85025; 85610; 85730; 93005; 93041; 96360; 96372; 96374; 99284; A9270-GY

== ENCOUNTER 2021-09-03 10:56 | Day surgery (SDC) | payer MEDICARE ==
[2021-09-03] MEDS ORDERED: Lactated Ringers 1,000 ML IV ONE ×2 (11:32→14:01)
[2021-09-03] MEDS ORDERED: Lactated Ringers 1,000 ML IV SCH (12:00)
[2021-09-03] MEDS ORDERED: DIPRIVAN 200 MG/20 ML IV ONE ×4 (13:03→14:22)
[2021-09-03] MEDS ORDERED: Versed 2 MG/2 ML Injection ONE (13:03)
[2021-09-03] MEDS ORDERED: GlucaGen 1 MG ONE (13:24)
[2021-09-03] MEDS ORDERED: TRANDATE 20 MG/4 ML SYRINGE IV ONE (13:29)
[2021-09-03 16:16] VITALS: O2SAT 96
[2021-09-03 16:19] VITALS: BP 170/80; PULSE 70
--- NOTE | 2021-09-04 08:48 | OP ---
PROCEDURE DATE/TIME: 09/03/2021 1305 PREOPERATIVE DIAGNOSES: 1) Surveillance. 2) Anemia. 3) History of polyps. POSTOPERATIVE DIAGNOSES: 1) History of chronic polyps. 2) Anemia. 3) Multiple colonic polyps. 4) Rectal mass. 5) Diverticulosis with diverticular spasm. PROCEDURES: 1) Colonoscopy with hot snare polypectomies x8. 2) Cold snare polypectomy x1. 3) Biopsies and tattoo placement. PROCEDURE PERFORMED BY: Yohaan Baker M.D. ANESTHESIA: MAC. ESTIMATED BLOOD LOSS: None. COMPLICATIONS: None. SPECIMENS: 1) Cecal polyp. 2) Ascending colon x3. 3) Large hepatic flexure polyp. 4) Moderate sized hepatic flexure polyp #1. 5) Moderate sized hepatic flexure polyp #2. 6) Descending colon polyp. 7) Distal descending colon polyp. 8) Biopsies of distal rectal mass. HISTORY: This is a 70-year-old female who has had anemia in the past and is also due for a surveillance colonoscopy. She has a history of polyps in the distal past. Risks, benefits, alternatives regarding colonoscopy and EGD have been discussed with her in detail. She wanted to proceed with EGD only and understands the risks, benefits and alternatives of this. She has stopped her blood thinner. H&P and consent have been reviewed with her and confirmed. She was seen preoperatively. DESCRIPTION OF PROCEDURE: She was then brought back to the endoscopy suite laid in left lateral decubitus position. A complete time out was performed. First, a rectal exam was done. She does have a mass as well as minor hemorrhoidal tissue and a minor small, benign appearing skin tag. We then inserted the scope and gently advanced this to the level of the cecum. She did have some mild tortuosity in the sigmoid colon and colonic flexure. Gentle abdominal pressure was used to navigate the scope to the level of the cecum. The appendiceal orifice and ileocecal valve were visualized and these were normal. The prep was satisfactory overall. We did have to irrigate to remove the liquid stool. The scope was carefully withdrawn taking a circumferential view. She had many polyps as follows: There was a cecal polyp approximately 1 to 1.2 cm semi-penduculated taken with hot snare. There were ascending colon polyps sizes of: 5 mm, 6 mm and 8 mm. These were all either pedunculated or semi-pedunculated taken all in entirety with hot snare. There was a larger hepatic flexure polyp that was approximately 1.8 cm which was taken with a hot snare in entirety this was pedunculated. A clip was placed to insure no post-polypectomy bleeding. Due to the size of the hepatic flexure polyp, I did place a tattoo 1 cm distal to the large hepatic flexure polyp. The polyp itself was approximately 1.8 cm before removal. The moderate sized hepatic flexure polyp was about 9 to 10 mm and the moderate sized hepatic flexure polyp #2 was about 1.2 cm both were taken with hot snare in entirety. The descending colon polyp was about 1.2 to 1.4 cm this was also pedunculated and taken in entirety with hot snare and a clip was placed. The other additional hepatic flexure polyps were semi-pedunculated. All of these polyps were retrieved. All sites were hemostatic. All were taken in entirety. All sites were also resurveyed to insure hemostasis and good removal. I also did review the specimens in the jars as well and they were retrieved. The patient also had a distal descending polyp that was small about 3 mm taken with a cold snare in entirety this site looked hemostatic. During the procedure due to the significant number of moderate to large size polyps, the patient did have quite a bit of spasm. She actually had spasm on entry but this progressed during the procedure and so we did give her Glucagon to decrease the spasm as much as feasible. Once we took out all of the lesions in the hepatic flexure, she had quite a bit of spasm even in the sigmoid and so there are some small polyps remaining that we did not take out due to the significance of what we had already taken out. She did also have a small amount of bleeding from the large hepatic flexure initially one cyst was removed and so I did place a clip at this place and this was hemostatic. We resurveyed the site and insured this. As we completely withdrew the scope, I do not see any significant large lesions but there are some polyps remaining in the sigmoid and descending colon that we will take when we come back at our next interval. Again, quite spasmed in the sigmoid and she also has diverticulosis and her descending colon was spasmed as well. Once the scope was withdrawn back to the region of the rectum, we did a very thorough visualization. There is one small polyp that appears to be adjacent to a large rectal mass this looks like a pedunculated tumor this could be benign. It could also be malignant. On exam it is very soft. It is stationed posteriorly. It is about 3 cm in size and it is approximately 2.5 to 3 cm from the anal verge. It appears to be somewhat pedunculated. The maximum size snare that we have available will not even remotely fit around this lesion so I took multiple biopsies with cold forceps and sent these to pathology. This site is friable. It does bleed easy. Once our biopsies were complete and hemostatic, we removed the scope. The patient tolerated the procedure well. There were no immediate complications. PLAN: I have discussed with the family as with the patient personally, the findings. We will await her pathology report. I will also be ordering MRI of her pelvis now to see how extensive this mass is and then our plan will be to review pathology and MRI results and if this looks to be benign or dysplastic, we will go in with a larger snare that we will special order and attempt to take out this polyp likely under general anesthesia with a rectal exam under anesthesia tray set up in case that is not feasible. The patient and her family understand. I have also discussed with them any instructions including when to start the blood thinner and what to look for. If she has fever, abdominal pain or bleeding she will call and her abdominal exam is very soft and she has a very nice soft nontender belly with a benign exam.
== END 2021-09-03 16:04 | disposition home or self-care (01) ==
LOC: SDC 10:56
PROVIDERS: ATTEND Surgery
DX: Z09 Encounter for follow-up examination after completed treatment for conditions other than malignant neoplasm (principal); Z86.010 Personal history of colon polyps; D64.9 Anemia, unspecified; D37.5 Neoplasm of uncertain behavior of rectum; K57.30 Diverticulosis of large intestine without perforation or abscess without bleeding; K64.4 Residual hemorrhoidal skin tags; E11.9 Type 2 diabetes mellitus without complications; D12.2 Benign neoplasm of ascending colon; D12.0 Benign neoplasm of cecum; D12.4 Benign neoplasm of descending colon; D12.3 Benign neoplasm of transverse colon; D12.8 Benign neoplasm of rectum
CPT/HCPCS: 82947; J1610; J2250; J2704

== ENCOUNTER 2021-09-20 20:38 | Observation (INO) | payer MEDICARE ==
[2021-09-20 21:40] LABS: Absolute Neutrophil Ct (ANC) 5.74 x10^3/uL (1.4-6.9); Basophil (Absolute #) 0.04 x10^3/uL (0-0.4); Eosinophil % 5.4 % (0.00-5.0); Eosinophil (Absolute #) 0.46 x10^3/uL (0-0.5); Hematocrit 27.2 % (35-47); Hemoglobin 8.7 g/dL (12.0-16.0); Lymphocyte (Absolute #) 1.64 x10^3/uL (1.0-4.6); Lymphocytes % 19.4 % (24.0-44.0); Mean Cell Volume 87.5 fL (78-100); Mean Platelet Volume 10.7 fL (7.5-11.0); Monocyte (Absolute #) 0.55 x10^3/uL (0.0-1.3); Monocytes % 6.5 % (0.0-12.0); Neutrophil % 67.8 % (36.0-66.0); Platelet Count 191 x10^3/uL (150-450); Red Blood Count 3.11 x10^6/uL (4.1-5.4); Red Cell Distribution Width 17.1 % (11.5-14.0); White Blood Count 8.5 x10^3/uL (4.0-10.5)
[2021-09-20 21:55] LABS: ALBUMIN 3.6 g/dL (3.5-5.0); ANION GAP 13.6 MEQ/L (5-15); BILIRUBIN,TOTAL 0.3 mg/dL (0.2-1.3); Calcium 8.9 mg/dL (8.4-10.2); Creatinine 1 4.73 mg/dL (0.52-1.04); EST GLOMERULAR FILTRATION RATE 9.8 ML/MIN; Potassium 3.8 mmol/L (3.5-5.1); Total Protein 6.8 g/dL (6.3-8.2)
--- NOTE | 2021-09-20 22:03 | ERPHSYRPT ---
- History of Present Illness Time Seen by Provider: 09/20/21 20:40 Source: patient Patient Subjective Stated Complaint: I fell last Friday because I got dizzy in the dining room. Triage Nursing Assessment: pt fell last Friday09/15/21 in the dining room and is c/o mid to low right back pain, states, "I felt a "pop" in my rib tonight on the right side". Pt's pain has gotten alot better and she was moving well today until she felt the pop and pain has increased. Physician History: Patient is a 70-year-old female presents to our emergency department for evaluation of pain to her right rib. Patient states she became dizzy last week on Friday. Patient fell at that time. She did not seek medical attention. Patient injured her low back at that time. Patient is here today because she felt a pop in her right rib. Patient became concerned. Patient is no longer dizzy. Patient states her pain from the fall last Friday has resolved and declined a x-ray of her low back. Patient states she just wants her rib examined. No headache. No nausea vomiting. No diaphoresis. Patient denies BHT. No LOC. No neck pain. Cervical spine cleared clinically. No chest pain or shortness of breath. Patient does have tenderness to the posterior lateral aspect of her right rib. Patient is ambulatory with a normal gait. No abdominal pain. No numbness tingling or weakness. Patient voices no other complaints or concerns at this time. Timing/Duration: day(s) (5 days ago) Severity: moderate Modifying Factors: Improves With: movement Associated Symptoms: other (Dizziness) Allergies/Adverse Reactions: liraglutide [From Victoza] Adverse Reaction (Severe, Verified 09/20/21 21:07) pancreatitis Penicillins Adverse Reaction (Verified 09/20/21 21:07) MOTHER WAS ALLERGIC SO SHE NEVER TOOK IT Home Medications: Aspirin [Baby Aspirin] 81 mg PO DAILY 12/14/12 [History] Pravastatin Sodium 40 mg PO DAILY 07/18/15 [History] Duloxetine HCl 30 mg [Cymbalta 30 MG Capsule] 30 mg PO DAILY 09/27/16 [History] Ergocalciferol (Vitamin D2) [Vitamin D] 50,000 unit PO 2XW 01/22/18 [History] Amlodipine Besylate 5 mg [Norvasc 5 mg] 5 mg PO DAILY 08/23/21 [History] Donepezil HCl [Aricept] 5 mg PO DAILY 08/23/21 [History] Insulin Lispro [Humalog] 35 unit SQ AC 08/23/21 [History] Labetalol HCl 100 mg [Trandate 100 MG] 200 mg PO BID 08/23/21 [History] hydroCHLOROthiazide [Hydrochlorothiazide] 25 mg PO DAILY 08/23/21 [History] Cilostazol 100 mg [Pletal 100 MG] 1 tab PO BID 09/20/21 [History] Cinacalcet HCl 1 tab PO DAILY 09/20/21 [History] Hx Tetanus, Diphtheria Vaccination/Date Given: (unknown) Hx Influenza Vaccination/Date Given: No Hx Pneumococcal Vaccination/Date Given: No Immunizations Up to Date: No Travel Risk - International Travel Have you traveled outside of the country in past 3 weeks: No - Coronavirus Screening Are you exhibiting any of the following symptoms?: No Close contact with a COVID-19 positive Pt in past 14-21 Days: No - Vaccine Status Have you recieved a Covid-19 vaccination: Yes Dental Scheduler: One Public - Vaccination Dates Date of 2cond Vaccination (if applicable): . - Review of Systems Constitutional: No Symptoms, No Fever, No Chills Eyes: No Symptoms Ears, Nose, & Throat: No Symptoms Respiratory: No Symptoms, No Cough, No Dyspnea Cardiac: No Symptoms, No Chest Pain, No Edema, No Syncope Abdominal/Gastrointestinal: No Symptoms, No Abdominal Pain, No Nausea, No Vomiting, No Diarrhea Genitourinary Symptoms: No Symptoms, No Dysuria Musculoskeletal: No Symptoms, No Back Pain, No Neck Pain Skin: No Symptoms, No Rash Neurological: No Symptoms, No Dizziness, No Focal Weakness, No Sensory Changes Psychological: No Symptoms Endocrine: No Symptoms Hematologic/Lymphatic: No Symptoms Immunological/Allergic: No Symptoms All Other Systems: Reviewed and Negative - Past Medical History Pertinent Past Medical History: Yes Neurological History: Stroke, TIA ENT History: Cataracts Cardiac History: Hypertension Respiratory History: No Pertinent History Endocrine Medical History: Diabetes Type II, Other Musculoskeletal History: Arthritis GI Medical History: Diverticulitis History: No Pertinent History Psycho-Social History: No Pertinent History Female Reproductive Disorders: No Pertinent History Other Medical History: CVA in 2015. TIA 2018, CKD - Past Surgical History Past Surgical History: Yes Neuro Surgical History: No Pertinent History Cardiac: No Pertinent History Respiratory: No Pertinent History Gastrointestinal: Cholecystectomy, Hernia Repair Genitourinary: No Pertinent History Musculoskeletal: No Pertinent History Female Surgical History: Hysterectomy, Other Other Surgical History: GOITER removed, right ovary removed, polpys removed co beka. thyroid biopsy. Retina surgery both eyes, colonoscopy. - Social History Smoking Status: Former smoker Exposure to second hand smoke: No Drug Use: none Patient Lives Alone: No - Nursing Vital Signs Nursing Vital Signs: Initial Vital Signs Temperature 97.8 F 09/20/21 20:38 Pulse Rate 87 09/20/21 20:38 Respiratory Rate 20 09/20/21 20:38 Blood Pressure 145/62 09/20/21 20:38 O2 Sat by Pulse Oximetry 95 09/20/21 20:38 Pain Scale Pain Intensity 10 - Physical Exam General Appearance: no apparent distress, alert Eye Exam: PERRL/EOMI, eyes nml inspection Ears, Nose, Throat Exam: normal ENT inspection, TMs normal, pharynx normal, moist mucous membranes Neck Exam: normal inspection, non-tender, supple, full range of motion Respiratory Exam: normal breath sounds, lungs clear, airway intact, other (Tenderness to palpation right posterior lateral rib. At the level of ribs 6 7 and 8), No respiratory distress Cardiovascular Exam: regular rate/rhythm, normal heart sounds, normal peripheral pulses Gastrointestinal/Abdomen Exam: soft, normal bowel sounds, No tenderness, No mass Back Exam: normal inspection, normal range of motion, No CVA tenderness, No vertebral tenderness Extremity Exam: normal inspection, normal range of motion, pelvis stable Neurologic Exam: alert, oriented x 3, cooperative, normal mood/affect, nml cerebellar function, nml station & gait, sensation nml, No motor deficits Skin Exam: normal color, warm, dry, No rash Lymphatic Exam: No adenopathy SpO2 Interpretation: normal SpO2: 95 O2 Delivery: Room Air - Course Nursing assessment & vital signs reviewed: Yes - CT Exams Chest CT Interpretation: Tele-radiologist Report (Compared to 02/12/2015 tiny hairline fracture right eighth rib. Again the left lower lobe atelectasis/scarring. Remaining chest negative) Ordered Tests: Active Orders 24 hr Category Date Time Status CHEST WITHOUT CONTRAST [CT] Stat Exams 09/20/21 21:48 Taken CBC W DIFF Stat Lab 09/20/21 21:37 Completed CMP Stat Lab 09/20/21 21:37 Completed TROPONIN Q3H Lab 09/20/21 21:39 Completed TROPONIN Q3H Lab 09/21/21 00:45 Ordered TROPONIN Q3H Lab 09/21/21 03:45 Ordered TROPONIN Q3H Lab 09/21/21 06:45 Ordered TROPONIN Q3H Lab 09/21/21 09:45 Ordered UA W/RFX CULTURE Stat Lab 09/20/21 Ordered Transfer Order Routine Transfer 09/20/21 Ordered Lab/Rad Data: Laboratory Result Diagrams 09/20/21 21:37 09/20/21 21:37 Laboratory Results 09/20/21 09/20/21 09/20/21 Range/Units 22:35 21:39 21:37 WBC (4.0-10.5) x10^3/uL RBC (4.1-5.4) x10^6/uL Hgb (12.0-16.0) g/dL Hct (35-47) % MCV (78-100) fL MCH (26-32) pg MCHC (32-36) g/dL RDW (11.5-14.0) % Plt Count (150-450) x10^3/uL MPV (7.5-11.0) fL Gran % (36.0-66.0) % Immature Gran % (Auto) (0.00-0.4) % Nucleat RBC Rel Count (0.00-0.1) % Eos # (Auto) (0-0.5) x10^3/uL Immature Gran # (Auto) (0.00-0.03) x10^3u/L Absolute Lymphs (auto) (1.0-4.6) x10^3/uL Absolute Monos (auto) (0.0-1.3) x10^3/uL Absolute Nucleated RBC (0.00-0.01) x10^3u/L Lymphocytes % (24.0-44.0) % Monocytes % (0.0-12.0) % Eosinophils % (0.00-5.0) % Basophils % (0.0-0.4) % Absolute Granulocytes (1.4-6.9) x10^3/uL Basophils # (0-0.4) x10^3/uL Sodium 138 (137-145) mmol/L Potassium 3.8 (3.5-5.1) mmol/L Chloride 105 (98-107) mmol/L Carbon Dioxide 24 (22-30) mmol/L Anion Gap 13.6 (5-15) MEQ/L BUN 61 H (7-17) mg/dL Creatinine 4.73 H (0.52-1.04) mg/dL Estimated GFR 9.8 ML/MIN Glucose 181 H (74-106) mg/dL Calcium 8.9 (8.4-10.2) mg/dL Total Bilirubin 0.30 (0.2-1.3) mg/dL AST 18 (14-36) U/L ALT 13 (0-35) U/L Alkaline Phosphatase 132 H (38-126) U/L Troponin I 0.023 (0.000-0.034) ng/mL Serum Total Protein 6.8 (6.3-8.2) g/dL Albumin 3.6 (3.5-5.0) g/dL Influenza Type A Ag NEGATIVE (NEGATIVE) Influenza Type B Ag NEGATIVE (NEGATIVE) RSV (PCR) NEGATIVE (Negative) SARS-CoV-2 (PCR) NEGATIVE (NEGATIVE) 09/20/21 Range/Units 21:37 WBC 8.5 (4.0-10.5) x10^3/uL RBC 3.11 L (4.1-5.4) x10^6/uL Hgb 8.7 L (12.0-16.0) g/dL Hct 27.2 L (35-47) % MCV 87.5 (78-100) fL MCH 28.0 (26-32) pg MCHC 32.0 (32-36) g/dL RDW 17.1 H (11.5-14.0) % Plt Count 191 (150-450) x10^3/uL MPV 10.7 (7.5-11.0) fL Gran % 67.8 H (36.0-66.0) % Immature Gran % (Auto) 0.4 (0.00-0.4) % Nucleat RBC Rel Count 0.0 (0.00-0.1) % Eos # (Auto) 0.46 (0-0.5) x10^3/uL Immature Gran # (Auto) 0.03 (0.00-0.03) x10^3u/L Absolute Lymphs (auto) 1.64 (1.0-4.6) x10^3/uL Absolute Monos (auto) 0.55 (0.0-1.3) x10^3/uL Absolute Nucleated RBC 0.00 (0.00-0.01) x10^3u/L Lymphocytes % 19.4 L (24.0-44.0) % Monocytes % 6.5 (0.0-12.0) % Eosinophils % 5.4 H (0.00-5.0) % Basophils % 0.5 (0.0-0.4) % Absolute Granulocytes 5.74 (1.4-6.9) x10^3/uL Basophils # 0.04 (0-0.4) x10^3/uL Sodium (137-145) mmol/L Potassium (3.5-5.1) mmol/L Chloride (98-107) mmol/L Carbon Dioxide (22-30) mmol/L Anion Gap (5-15) MEQ/L BUN (7-17) mg/dL Creatinine (0.52-1.04) mg/dL Estimated GFR ML/MIN Glucose (74-106) mg/dL Calcium (8.4-10.2) mg/dL Total Bilirubin (0.2-1.3) mg/dL AST (14-36) U/L ALT (0-35) U/L Alkaline Phosphatase (38-126) U/L Troponin I (0.000-0.034) ng/mL Serum Total Protein (6.3-8.2) g/dL Albumin (3.5-5.0) g/dL Influenza Type A Ag (NEGATIVE) Influenza Type B Ag (NEGATIVE) RSV (PCR) (Negative) SARS-CoV-2 (PCR) (NEGATIVE) - Progress Progress: improved Progress Note: Patient reassessed. Rib pain improved. Work-up reveals a significant anemia with a significant hemoglobin drop over the past 3 weeks. There has been a significant decline in renal function as well over the past 3 weeks. Patient is a diabetic and is known to have diabetic nephropathy. Patient's decreased hemoglobin may be the cause for her dizziness and fall [address] chest reveals 8 rib fracture. No pneumothorax. Case discussed with patient's primary care physician Dr. Treviño accepts admission to observation. Patient is currently not dizzy. Patient has not complained of dizziness during this ED vi sit. Her last bout of dizziness was 5 days ago. 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 COVID test negative. Patient agrees to admission at [facility] for further evaluation and treatment. Portions of this note were created with voice recognition technology. There may be grammatical, spelling, punctuation or sound alike errors 09/20/21 23:[address] Aneta Will see patient in: hospital (observation) Counseled pt/family regarding: lab results, diagnosis, rad results - Departure Departure Disposition: Observation Clinical Impression: Fall, Right rib fracture, Normocytic anemia, Chronic renal insufficiency, Dizzy, Symptomatic anemia Condition: Stable Critical Care Time: No Referrals: FANTA TREVIÑO MD [Primary Care Provider] - Follow up/PCP as directed
[2021-09-20 23:26] LABS: INFLUENZA A NEGATIVE (NEGATIVE); INFLUENZA B NEGATIVE (NEGATIVE); RESPIRATORY SYNCTIAL VIRUS NEGATIVE (Negative); SARS-CoV-2 Xpert Express NEGATIVE (NEGATIVE)
[2021-09-21] MEDS ORDERED: Sodium Chloride 0.9% 1000 ML 1,000 ML IV SCH (00:10)
[2021-09-21] MEDS ORDERED: MORPHINE SULFATE 2 MG INJ IV PRN (00:10)
[2021-09-21] MEDS ORDERED: TYLENOL 325 MG PO PRN (00:10)
[2021-09-21] MEDS ORDERED: hydroDIURIL 25 MG PO ONE (01:30)
[2021-09-21] MEDS ORDERED: PLAVIX Tablet PO ONE (01:30)
[2021-09-21] MEDS ORDERED: ZOCOR 20MG PO ONE (01:30)
[2021-09-21] MEDS ORDERED: FOLATE 1 MG PO ONE (01:30)
[2021-09-21] MEDS ORDERED: Trandate 100 MG PO ONE (01:30)
[2021-09-21] MEDS ORDERED: Cymbalta 30 MG Capsule PO ONE (01:30)
[2021-09-21 04:27] LABS: ANION GAP 11.4 MEQ/L (5-15); BILIRUBIN,TOTAL 0.3 mg/dL (0.2-1.3); Calcium 8.6 mg/dL (8.4-10.2); Creatinine 1 4.57 mg/dL (0.52-1.04); EST GLOMERULAR FILTRATION RATE 10.1 ML/MIN; Potassium 4.2 mmol/L (3.5-5.1); Total Protein 5.7 g/dL (6.3-8.2)
[2021-09-21 04:37] LABS: Absolute Neutrophil Ct (ANC) 5.14 x10^3/uL (1.4-6.9); Basophil (Absolute #) 0.05 x10^3/uL (0-0.4); Eosinophil % 5.1 % (0.00-5.0); Hematocrit 26.6 % (35-47); Hemoglobin 8.4 g/dL (12.0-16.0); Lymphocyte (Absolute #) 1.66 x10^3/uL (1.0-4.6); Lymphocytes % 21.1 % (24.0-44.0); Mean Corpuscular Hemoglobin 28.1 pg (26-32); Mean Corpuscular Hgb Concent. 31.6 g/dL (32-36); Mean Platelet Volume 10.7 fL (7.5-11.0); Monocyte (Absolute #) 0.58 x10^3/uL (0.0-1.3); Monocytes % 7.4 % (0.0-12.0); Neutrophil % 65.3 % (36.0-66.0); Platelet Count 181 x10^3/uL (150-450); Red Blood Count 2.99 x10^6/uL (4.1-5.4); Red Cell Distribution Width 17.3 % (11.5-14.0); White Blood Count 7.9 x10^3/uL (4.0-10.5)
[2021-09-21 08:17] VITALS: BP 142/72; PULSE 112; O2SAT 95
[2021-09-21 08:26] LABS: Appearance CLOUDY (CLEAR); Bilirubin NEGATIVE (NEGATIVE); Glucose 250 mg/dL (NEGATIVE); Ketones NEGATIVE (NEGATIVE); Nitrite NEGATIVE (NEGATIVE); Ph 5.5 (5-6); Protein,Urine Dip >=300 (Negative); RBC MODERATE Ery/ul (0-5); Urobilinogen 0.2 mg/dL (0-1)
[2021-09-21 08:27] LABS: Dipstick done @ ? MAIN LAB
--- NOTE | 2021-09-21 08:38 | XRAY ---
Indication: Right rib pain following fall 1 week ago. Multiple contiguous axial images obtained through the chest without contrast. Comparison: February 12, 2015 Lungs again demonstrates bibasilar subsegmental atelectasis/scarring, left greater than right. Minimal pulmonary emphysema. Stable benign 2-3 mm inferior right upper lobe noncalcified nodule (image 27, series 3). New 5 mm medial left upper lobe (image 26) and 4 mm anterior right upper lobe (image 22) noncalcified nodules. No infiltrate, effusion, or pneumothorax. Heart not enlarged. Aorta is normal in course and caliber again with minimal arteriosclerotic calcifications. There remains a few small mediastinal and left hilar calcified nodes. No pathologic mediastinal lymphadenopathy. Again partially visualized heterogeneously enlarged right thyroid gland. Bony thorax again demonstrates osteopenia and degenerative changes throughout the spine. New nondisplaced hairline fracture posterior lateral arc right 8 rib. Limited upper abdomen demonstrates cholecystectomy clips, stable small benign right adrenal adenoma, and benign laminated calcified mass adjacent to spleen. Impression: 1. New nondisplaced hairline fracture right 8 rib. No pneumothorax/hemothorax. 2. New indeterminant right upper and left upper lobe noncalcified micronodule as detailed. Finding possibly granulomatous in this demographic. Recommend follow-up per Fleischner guidelines. 3. Again pulmonary emphysema, bibasilar atelectasis/scarring, benign right upper lobe noncalcified micronodule, heterogeneous enlarged right thyroid, benign right adrenal adenoma, benign calcified mass adjacent to spleen, chronic bony findings, and old granulomatous disease.
[2021-09-21 09:40] LABS: Bacteria MODERATE /HPF (NEGATIVE); Epithelial Cells RARE /HPF (FEW); Mucus SLIGHT /HPF (NEGATIVE); WBC >100 /HPF (0-5)
[2021-09-21 09:45] LABS: Urine Cultured Indicated? YES
[2021-09-21] MEDS ORDERED: FISH OIL 1,000 MG CAPSULE PO SCH (10:00)
[2021-09-21] MEDS ORDERED: Lidoderm Patch 5% TOP SCH (10:00)
[2021-09-21] MEDS ORDERED: NON-FORMULARY ITEM (Fish Oil/Dha/Epa [Fish Oil 1,200 Mg Fish Oil] 1 EACH Capsule) PO SCH (10:00)
[2021-09-21] MEDS ORDERED: Trandate 100 MG PO SCH (10:00)
--- NOTE | 2021-09-21 13:04 | PCM.SSS ---
History of Present Illness - Chief Complaint Chief Complaint: rib fx, fall History of Present Illness: is a 70 year old female.for evaluation of pain to her right rib. Patient states she became dizzy last week on Friday. Patient fell at that time. She did not seek medical attention. Patient injured her low back at that time. Patient is here today because she felt a pop in her right rib. Patient became concerned. Patient is no longer dizzy. Patient states her pain from the fall last Friday has resolved and declined a x-ray of her low back. Patient states she just wants her rib examined. No headache. No nausea vomiting. No diaphoresis. Patient denies BHT. No LOC. No neck pain. Cervical spine cleared clinically. No chest pain or shortness of breath. Patient does have tenderness to the posterior lateral aspect of her right rib. Patient is ambulatory with a normal gait. No abdominal pain. No numbness tingling or weakness. Patient voices no other complaints or concerns at this time. - Review of Systems Constitutional: No Fever, No Chills Eyes: No Symptoms Ears, Nose, & Throat: No Symptoms Respiratory: No Cough, No Short Of Breath Cardiac: No Chest Pain, No Edema, No Syncope Abdominal/Gastrointestinal: No Abdominal Pain, No Nausea, No Vomiting, No Diarrhea Genitourinary Symptoms: No Dysuria Musculoskeletal: No Back Pain, No Neck Pain Skin: No Rash Neurological: No Dizziness, No Focal Weakness, No Sensory Changes Psychological: No Symptoms Endocrine: No Symptoms Hematologic/Lymphatic: No Symptoms Immunological/Allergic: No Symptoms Medications & Allergies Home Medications: Home Medication List Aspirin [Baby Aspirin] 81 mg PO DAILY 12/14/12 [History Confirmed 09/21/21] Pravastatin Sodium 40 mg PO QHS 07/18/15 [History Confirmed 09/21/21] Duloxetine HCl 30 mg [Cymbalta 30 MG Capsule] 30 mg PO QHS 09/27/16 [History Confirmed 09/21/21] Ergocalciferol (Vitamin D2) [Vitamin D] 50,000 unit PO 2XW 01/22/18 [History Confirmed 09/21/21] Amlodipine Besylate 5 mg [Norvasc 5 mg] 5 mg PO DAILY 08/23/21 [History Confirmed 09/21/21] Donepezil HCl [Aricept] 5 mg PO DAILY 08/23/21 [History Confirmed 09/21/21] Insulin Lispro [Humalog] 35 unit SQ AC 08/23/21 [History Confirmed 09/21/21] Labetalol HCl 100 mg [Trandate 100 MG] 200 mg PO BID 08/23/21 [History Confirmed 09/21/21] hydroCHLOROthiazide [Hydrochlorothiazide] 25 mg PO QHS 08/23/21 [History Confirmed 09/21/21] Cilostazol 100 mg [Pletal 100 MG] 100 mg PO BID 09/20/21 [History Confirmed 09/21/21] Cinacalcet HCl 30 mg PO DAILY 09/20/21 [History Confirmed 09/21/21] Clopidogrel Bisulfate [PLAVIX Tablet] 75 mg PO QHS 09/21/21 [History Confirmed 09/21/21] Fish Oil/Dha/Epa [Fish Oil 1,200 mg Fish Oil] 1 cap PO BID 09/21/21 [History Confirmed 09/21/21] Folic Acid 1 mg [Folate 1 mg] 1 mg PO QHS 09/21/21 [History Confirmed 09/21/21] Lidocaine HCl 5% Patch [Lidoderm Patch 5%] 1 patch TOP DAILY 14 Days #14 patch 09/21/21 [Rx] Allergies/Adverse Reactions: Allergies Allergy/AdvReac Type Severity Reaction Status Date / Time liraglutide [From Victoza] AdvReac Severe pancreatiti Verified 09/21/21 00:20 s Penicillins AdvReac MOTHER WAS Verified 09/21/21 00:20 ALLERGIC SO SHE NEVER TOOK IT - Past Medical History Past Medical History: Yes Neurological History: Stroke, TIA ENT History: Cataracts Cardiac History: Hypertension Respiratory History: No Pertinent History Endocrine Medical History: Diabetes Type II, Other Musculoskelatal History: Arthritis GI Medical History: Diverticulitis History: Renal Disease Pyscho-Social History: No Pertinent History Reproductive Disorders: No Pertinent History Comment: CVA in 2015. TIA 2018, CKD - Female History Are you now?: No - Past Surgical History Past Surgical History: Yes Neuro Surgical History: No Pertinent History Cardiac History: No Pertinent History Respiratory Surgery: No Pertinent History GI Surgical History: Cholecystectomy, Hernia Repair Genitourinary Surgical Hx: No Pertinent History Musculskeletal Surgical Hx: No Pertinent History Female Surgical History: Hysterectomy, Other Other Surgical History: GOITER removed, right ovary removed, polpys removed colon. thyroid biopsy. Retina surgery both eyes, colonoscopy. - Social History Smoking Status: Never smoker Exposure to second hand smoke: No Alcohol: None Drug Use: none - Physical Exam Vital Signs: Vital Signs - 24 hr Temp Pulse Resp BP Pulse Ox 09/21/21 08:00 97.5 F 112 H 25 H 142/72 95 09/21/21 04:00 99.5 F 80 16 146/65 92 L 09/21/21 00:40 97.7 F 86 18 145/62 96 09/20/21 23:50 95 09/20/21 20:38 97.8 F 87 20 145/62 95 General Appearance: no apparent distress, alert Neurologic Exam: alert, oriented x 3, cooperative, normal mood/affect, nml cerebellar function, nml station & gait, sensation nml, No motor deficits Eye Exam: PERRL/EOMI, eyes nml inspection Ears, Nose, Throat Exam: normal ENT inspection, TMs normal, pharynx normal, moist mucous membranes Neck Exam: normal inspection, non-tender, supple, full range of motion Respiratory Exam: normal breath sounds, lungs clear, No respiratory distress Cardiovascular Exam: regular rate/rhythm, normal heart sounds, normal peripheral pulses Gastrointestinal/Abdomen Exam: soft, normal bowel sounds, No tenderness, No mass Back Exam: normal inspection, normal range of motion, No CVA tenderness, No vertebral tenderness Extremity Exam: normal inspection, normal range of motion, pelvis stable Skin Exam: normal color, warm, dry, No rash Lymphatic Exam: No adenopathy Results - Labs Lab/Micro Results: Lab Results-Last 24 Hours 09/20/21 09/20/21 09/20/21 Range/Units 08:15 21:37 21:37 WBC 8.5 (4.0-10.5) x10^3/uL RBC 3.11 L (4.1-5.4) x10^6/uL Hgb 8.7 L (12.0-16.0) g/dL Hct 27.2 L (35-47) % MCV 87.5 (78-100) fL MCH 28.0 (26-32) pg MCHC 32.0 (32-36) g/dL RDW 17.1 H (11.5-14.0) % Plt Count 191 (150-450) x10^3/uL MPV 10.7 (7.5-11.0) fL Gran % 67.8 H (36.0-66.0) % Immature Gran % (Auto) 0.4 (0.00-0.4) % Nucleat RBC Rel Count 0.0 (0.00-0.1) % Eos # (Auto) 0.46 (0-0.5) x10^3/uL Immature Gran # (Auto) 0.03 (0.00-0.03) x10^3u/L Absolute Lymphs (auto) 1.64 (1.0-4.6) x10^3/uL Absolute Monos (auto) 0.55 (0.0-1.3) x10^3/uL Absolute Nucleated RBC 0.00 (0.00-0.01) x10^3u/L Lymphocytes % 19.4 L (24.0-44.0) % Monocytes % 6.5 (0.0-12.0) % Eosinophils % 5.4 H (0.00-5.0) % Basophils % 0.5 (0.0-0.4) % Absolute Granulocytes 5.74 (1.4-6.9) x10^3/uL Basophils # 0.04 (0-0.4) x10^3/uL Sodium 138 (137-145) mmol/L Potassium 3.8 (3.5-5.1) mmol/L Chloride 105 (98-107) mmol/L Carbon Dioxide 24 (22-30) mmol/L Anion Gap 13.6 (5-15) MEQ/L BUN 61 H (7-17) mg/dL Creatinine 4.73 H (0.52-1.04) mg/dL Estimated GFR 9.8 ML/MIN Glucose 181 H (74-106) mg/dL POC Glucometer (74 to 106) mg/dL Calcium 8.9 (8.4-10.2) mg/dL Total Bilirubin 0.30 (0.2-1.3) mg/dL AST 18 (14-36) U/L ALT 13 (0-35) U/L Alkaline Phosphatase 132 H (38-126) U/L Troponin I (0.000-0.034) ng/mL Serum Total Protein 6.8 (6.3-8.2) g/dL Albumin 3.6 (3.5-5.0) g/dL Urinalys Dipstick Clnc MAIN LAB Urine Color LT.YELLOW (YELLOW) Urine Appearance CLOUDY (CLEAR) Urine pH 5.5 (5-6) Ur Specific [place] 1.020 (1.005-1.025) POC Urine Protein Conf >=300 (Negative) Urine Ketones NEGATIVE (NEGATIVE) Urine Nitrite NEGATIVE (NEGATIVE) Urine Bilirubin NEGATIVE (NEGATIVE) Urine Urobilinogen 0.2 (0-1) mg/dL Urine Leukocytes SMALL (NEGATIVE) Urine WBC (Auto) >100 (0-5) /HPF Urine RBC (Auto) 6-10 (0-2) /HPF U Epithel Cells (Auto) RARE (FEW) /HPF Urine Bacteria (Auto) MODERATE (NEGATIVE) /HPF Urine RBC MODERATE (0-5) Onur/ul Urine Mucus (Auto) SLIGHT (NEGATIVE) /HPF Ur Culture Indicated? YES Urine Glucose 250 (NEGATIVE) mg/dL Influenza Type A Ag (NEGATIVE) Influenza Type B Ag (NEGATIVE) RSV (PCR) (Negative) SARS-CoV-2 (PCR) (NEGATIVE) 09/20/21 09/20/21 09/21/21 Range/Units 21:39 22:35 01:02 WBC (4.0-10.5) x10^3/uL RBC (4.1-5.4) x10^6/uL Hgb (12.0-16.0) g/dL Hct (35-47) % MCV (78-100) fL MCH (26-32) pg MCHC (32-36) g/dL RDW (11.5-14.0) % Plt Count (150-450) x10^3/uL MPV (7.5-11.0) fL Gran % (36.0-66.0) % Immature Gran % (Auto) (0.00-0.4) % Nucleat RBC Rel Count (0.00-0.1) % Eos # (Auto) (0-0.5) x10^3/uL Immature Gran # (Auto) (0.00-0.03) x10^3u/L Absolute Lymphs (auto) (1.0-4.6) x10^3/uL Absolute Monos (auto) (0.0-1.3) x10^3/uL Absolute Nucleated RBC (0.00-0.01) x10^3u/L Lymphocytes % (24.0-44.0) % Monocytes % (0.0-12.0) % Eosinophils % (0.00-5.0) % Basophils % (0.0-0.4) % Absolute Granulocytes (1.4-6.9) x10^3/uL Basophils # (0-0.4) x10^3/uL Sodium (137-145) mmol/L Potassium (3.5-5.1) mmol/L Chloride (98-107) mmol/L Carbon Dioxide (22-30) mmol/L Anion Gap (5-15) MEQ/L BUN (7-17) mg/dL Creatinine (0.52-1.04) mg/dL Estimated GFR ML/MIN Glucose (74-106) mg/dL POC Glucometer (74 to 106) mg/dL Calcium (8.4-10.2) mg/dL Total Bilirubin (0.2-1.3) mg/dL AST (14-36) U/L ALT (0-35) U/L Alkaline Phosphatase (38-126) U/L Troponin I 0.023 0.022 (0.000-0.034) ng/mL Serum Total Protein (6.3-8.2) g/dL Albumin (3.5-5.0) g/dL Urinalys Dipstick Clnc Urine Color (YELLOW) Urine Appearance (CLEAR) Urine pH (5-6) Ur Specific [place] (1.005-1.025) POC Urine Protein Conf (Negative) Urine Ketones (NEGATIVE) Urine Nitrite (NEGATIVE) Urine Bilirubin (NEGATIVE) Urine Urobilinogen (0-1) mg/dL Urine Leukocytes (NEGATIVE) Urine WBC (Auto) (0-5) /HPF Urine RBC (Auto) (0-2) /HPF U Epithel Cells (Auto) (FEW) /HPF Urine Bacteria (Auto) (NEGATIVE) /HPF Urine RBC (0-5) Onur/ul Urine Mucus (Auto) (NEGATIVE) /HPF Ur Culture Indicated? Urine Glucose (NEGATIVE) mg/dL Influenza Type A Ag NEGATIVE (NEGATIVE) Influenza Type B Ag NEGATIVE (NEGATIVE) RSV (PCR) NEGATIVE (Negative) SARS-CoV-2 (PCR) NEGATIVE (NEGATIVE) 09/21/21 09/21/21 09/21/21 Range/Units 03:44 03:44 03:44 WBC 7.9 (4.0-10.5) x10^3/uL RBC 2.99 L (4.1-5.4) x10^6/uL Hgb 8.4 L (12.0-16.0) g/dL Hct 26.6 L (35-47) % MCV 89.0 (78-100) fL MCH 28.1 (26-32) pg MCHC 31.6 L (32-36) g/dL RDW 17.3 H (11.5-14.0) % Plt Count 181 (150-450) x10^3/uL MPV 10.7 (7.5-11.0) fL Gran % 65.3 (36.0-66.0) % Immature Gran % (Auto) 0.5 H (0.00-0.4) % Nucleat RBC Rel Count 0.0 (0.00-0.1) % Eos # (Auto) 0.40 (0-0.5) x10^3/uL Immature Gran # (Auto) 0.04 H (0.00-0.03) x10^3u/L Absolute Lymphs (auto) 1.66 (1.0-4.6) x10^3/uL Absolute Monos (auto) 0.58 (0.0-1.3) x10^3/uL Absolute Nucleated RBC 0.00 (0.00-0.01) x10^3u/L Lymphocytes % 21.1 L (24.0-44.0) % Monocytes % 7.4 (0.0-12.0) % Eosinophils % 5.1 H (0.00-5.0) % Basophils % 0.6 (0.0-0.4) % Absolute Granulocytes 5.14 (1.4-6.9) x10^3/uL Basophils # 0.05 (0-0.4) x10^3/uL Sodium 135 L (137-145) mmol/L Potassium 4.2 (3.5-5.1) mmol/L Chloride 106 (98-107) mmol/L Carbon Dioxide 22 (22-30) mmol/L Anion Gap 11.4 (5-15) MEQ/L BUN 61 H (7-17) mg/dL Creatinine 4.57 H (0.52-1.04) mg/dL Estimated GFR 10.1 ML/MIN Glucose 283 H (74-106) mg/dL POC Glucometer (74 to 106) mg/dL Calcium 8.6 (8.4-10.2) mg/dL Total Bilirubin 0.30 (0.2-1.3) mg/dL AST 16 (14-36) U/L ALT 12 (0-35) U/L Alkaline Phosphatase 111 (38-126) U/L Troponin I 0.026 (0.000-0.034) ng/mL Serum Total Protein 5.7 L (6.3-8.2) g/dL Albumin 3.0 L (3.5-5.0) g/dL Urinalys Dipstick Clnc Urine Color (YELLOW) Urine Appearance (CLEAR) Urine pH (5-6) Ur Specific [place] (1.005-1.025) POC Urine Protein Conf (Negative) Urine Ketones (NEGATIVE) Urine Nitrite (NEGATIVE) Urine Bilirubin (NEGATIVE) Urine Urobilinogen (0-1) mg/dL Urine Leukocytes (NEGATIVE) Urine WBC (Auto) (0-5) /HPF Urine RBC (Auto) (0-2) /HPF U Epithel Cells (Auto) (FEW) /HPF Urine Bacteria (Auto) (NEGATIVE) /HPF Urine RBC (0-5) Onur/ul Urine Mucus (Auto) (NEGATIVE) /HPF Ur Culture Indicated? Urine Glucose (NEGATIVE) mg/dL Influenza Type A Ag (NEGATIVE) Influenza Type B Ag (NEGATIVE) RSV (PCR) (Negative) SARS-CoV-2 (PCR) (NEGATIVE) 09/21/21 09/21/21 09/21/21 Range/Units 07:00 07:34 09:04 WBC (4.0-10.5) x10^3/uL RBC (4.1-5.4) x10^6/uL Hgb (12.0-16.0) g/dL Hct (35-47) % MCV (78-100) fL MCH (26-32) pg MCHC (32-36) g/dL RDW (11.5-14.0) % Plt Count (150-450) x10^3/uL MPV (7.5-11.0) fL Gran % (36.0-66.0) % Immature Gran % (Auto) (0.00-0.4) % Nucleat RBC Rel Count (0.00-0.1) % Eos # (Auto) (0-0.5) x10^3/uL Immature Gran # (Auto) (0.00-0.03) x10^3u/L Absolute Lymphs (auto) (1.0-4.6) x10^3/uL Absolute Monos (auto) (0.0-1.3) x10^3/uL Absolute Nucleated RBC (0.00-0.01) x10^3u/L Lymphocytes % (24.0-44.0) % Monocytes % (0.0-12.0) % Eosinophils % (0.00-5.0) % Basophils % (0.0-0.4) % Absolute Granulocytes (1.4-6.9) x10^3/uL Basophils # (0-0.4) x10^3/uL Sodium (137-145) mmol/L Potassium (3.5-5.1) mmol/L Chloride (98-107) mmol/L Carbon Dioxide (22-30) mmol/L Anion Gap (5-15) MEQ/L BUN (7-17) mg/dL Creatinine (0.52-1.04) mg/dL Estimated GFR ML/MIN Glucose (74-106) mg/dL POC Glucometer 211 H (74 to 106) mg/dL Calcium (8.4-10.2) mg/dL Total Bilirubin (0.2-1.3) mg/dL AST (14-36) U/L ALT (0-35) U/L Alkaline Phosphatase (38-126) U/L Troponin I 0.028 0.023 (0.000-0.034) ng/mL Serum Total Protein (6.3-8.2) g/dL Albumin (3.5-5.0) g/dL Urinalys Dipstick Clnc Urine Color (YELLOW) Urine Appearance (CLEAR) Urine pH (5-6) Ur Specific [place] (1.005-1.025) POC Urine Protein Conf (Negative) Urine Ketones (NEGATIVE) Urine Nitrite (NEGATIVE) Urine Bilirubin (NEGATIVE) Urine Urobilinogen (0-1) mg/dL Urine Leukocytes (NEGATIVE) Urine WBC (Auto) (0-5) /HPF Urine RBC (Auto) (0-2) /HPF U Epithel Cells (Auto) (FEW) /HPF Urine Bacteria (Auto) (NEGATIVE) /HPF Urine RBC (0-5) Onur/ul Urine Mucus (Auto) (NEGATIVE) /HPF Ur Culture Indicated? Urine Glucose (NEGATIVE) mg/dL Influenza Type A Ag (NEGATIVE) Influenza Type B Ag (NEGATIVE) RSV (PCR) (Negative) SARS-CoV-2 (PCR) (NEGATIVE) - Radiology Impressions Radiology Exams & Impressions: Radiology Procedures Category Date Time Status CHEST WITHOUT CONTRAST [CT] Stat Exams 09/20/21 21:48 Completed Assessment/Plan (1) Chronic renal insufficiency Status: Acute Qualifiers: Chronic kidney disease stage: stage 5 Qualified Code(s): N18.5 - Chronic kidney disease, stage 5 Assessment & Plan: Chief Complaint Diagnosis rib fx, fall Allergies Allergy/AdvReac Type Severity Reaction Status Date / Time liraglutide [From Victoza] AdvReac Severe pancreatiti Verified 09/21/21 00:20 s Penicillins AdvReac MOTHER WAS Verified 09/21/21 00:20 ALLERGIC SO SHE NEVER TOOK IT Vital Signs (Last 24 hours) Temp Pulse Resp BP Pulse Ox 09/21/21 08:00 97.5 F 112 H 25 H 142/72 95 09/21/21 04:00 99.5 F 80 16 146/65 92 L 09/21/21 00:40 97.7 F 86 18 145/62 96 09/20/21 23:50 95 09/20/21 20:38 97.8 F 87 20 145/62 95 Home Medications Medication Instructions Recorded Confirmed Last Taken Type Cilostazol 100 mg [Pletal 100 100 mg PO BID 09/20/21 09/21/21 09/20/21 09:00 History MG] Cinacalcet HCl 30 mg PO DAILY 09/20/21 09/21/21 09/20/21 12:00 History Clopidogrel Bisulfate [PLAVIX 75 mg PO QHS 09/21/21 09/21/21 09/19/21 21:00 History Tablet] Fish Oil/Dha/Epa [Fish Oil 1,200 1 cap PO BID 09/21/21 09/21/21 09/20/21 08:00 History mg Fish Oil] Folic Acid 1 mg [Folate 1 mg] 1 mg PO QHS 09/21/21 09/21/21 09/19/21 22:00 History Lidocaine HCl 5% Patch 1 patch TOP DAILY 14 Days #14 patch 09/21/21 Unknown Rx [Lidoderm Patch 5%] Current Medications Discontinued Medications Generic Name Dose Route Start Last Admin Trade Name Freq PRN Reason Stop Dose Admin Acetaminophen 650 mg 09/21/21 00:10 Acetaminophen 325 Mg Tablet PO 10/21/21 00:09 Q4H PRN PRN PAIN AND/OR FEVER Clopidogrel Bisulfate 75 mg 09/21/21 01:30 09/21/21 01:23 Clopidogrel Bisulfate 75 Mg Tablet PO 09/21/21 01:31 75 mg ONCE ONE Administration Clopidogrel Bisulfate 75 mg 09/21/21 22:00 Clopidogrel Bisulfate 75 Mg Tablet PO 10/21/21 21:59 [facility] Duloxetine HCl 30 mg 09/21/21 01:30 09/21/21 01:23 Duloxetine Hcl 30 Mg Cap PO 09/21/21 01:31 30 mg ONCE ONE Administration Duloxetine HCl 30 mg 09/21/21 22:00 Duloxetine Hcl 30 Mg Cap PO 10/21/21 21:59 [facility] Fish Oil 1,000 mg 09/21/21 10:00 09/21/21 10:28 [facility] Fatty Acids/Fish Oil 1000 Mg Capsule PO 10/21/21 09:59 1,000 mg BID [facility] Administration Folic Acid 1 mg 09/21/21 01:30 09/21/21 01:23 Folic Acid 1 Mg Tablet PO 09/21/21 01:31 1 mg ONCE ONE Administration Folic Acid 1 mg 09/21/21 22:00 Folic Acid 1 Mg Tablet PO 10/21/21 21:59 [facility] Hydrochlorothiazide 25 mg 09/21/21 01:30 09/21/21 01:23 Hydrochlorothiazide 25 Mg Tablet PO 09/21/21 01:31 25 mg ONCE ONE Administration Hydrochlorothiazide 25 mg 09/21/21 22:00 Hydrochlorothiazide 25 Mg Tablet PO 10/21/21 21:59 QHS DOROTHY Sodium Chloride 1,000 mls @ 100 mls/hr 09/21/21 00:10 09/21/21 01:23 Sodium Chloride 0.9% 1000 Ml IV 10/21/21 00:09 100 mls/hr .Q10H DOROTHY Administration Labetalol HCl 200 mg 09/21/21 01:30 09/21/21 01:23 Labetalol Hcl 100 Mg Tablet PO 09/21/21 01:31 200 mg ONCE ONE Administration Labetalol HCl 200 mg 09/21/21 10:00 09/21/21 10:28 Labetalol Hcl 100 Mg Tablet PO 10/21/21 09:59 200 mg BID DOROTHY Administration Lidocaine 1 patch 09/21/21 10:00 09/21/21 10:29 Lidocaine Hcl 1 Patch Patch TOP 10/21/21 09:59 1 patch DAILY DOROTHY Administration Morphine Sulfate 2 mg 09/21/21 00:10 09/21/21 01:26 Morphine Sulfate 2 Mg/Ml Inj IV 09/26/21 00:09 2 mg Q4H PRN PRN Administration PAIN Simvastatin 40 mg 09/21/21 01:30 09/21/21 01:23 Simvastatin 20 Mg Tablet PO 09/21/21 01:31 40 mg ONCE ONE Administration Simvastatin 40 mg 09/21/21 22:00 Simvastatin 20 Mg Tablet PO 10/21/21 21:59 QHS DOROTHY Intake & Output (Last 24 hours) 09/19/21 09/20/21 09/21/21 09/22/21 11:59 11:59 11:59 11:59 Intake Total 269 Balance 269 Weight 88.2 kg Microbiology Results (Last 24 hours) 09/20/21 08:15 Urine, Void Urine Culture - Pending Laboratory Results (Last 24 hours) 09/21/21 09/21/21 09/21/21 09:04 07:34 07:00 WBC RBC Hgb Hct MCV MCH MCHC RDW Plt Count MPV Gran % Immature Gran % (Auto) Nucleat RBC Rel Count Eos # (Auto) Immature Gran # (Auto) Absolute Lymphs (auto) Absolute Monos (auto) Absolute Nucleated RBC Lymphocytes % Monocytes % Eosinophils % Basophils % Absolute Granulocytes Basophils # Sodium Potassium Chloride Carbon Dioxide Anion Gap BUN Creatinine Estimated GFR Glucose POC Glucometer 211 H Calcium Total Bilirubin AST ALT Alkaline Phosphatase Troponin I 0.023 0.028 Serum Total Protein Albumin Urinalys Dipstick Clnc Urine Color Urine Appearance Urine pH Ur Specific [place] POC Urine Protein Conf Urine Ketones Urine Nitrite Urine Bilirubin Urine Urobilinogen Urine Leukocytes Urine WBC (Auto) Urine RBC (Auto) U Epithel Cells (Auto) Urine Bacteria (Auto) Urine RBC Urine Mucus (Auto) Ur Culture Indicated? Urine Glucose Influenza Type A Ag Influenza Type B Ag RSV (PCR) SARS-CoV-2 (PCR) 09/21/21 09/21/21 09/21/21 03:44 03:44 03:44 WBC 7.9 RBC 2.99 L Hgb 8.4 L Hct 26.6 L MCV 89.0 MCH 28.1 MCHC 31.6 L RDW 17.3 H Plt Count 181 MPV 10.7 Gran % 65.3 Immature Gran % (Auto) 0.5 H Nucleat RBC Rel Count 0.0 Eos # (Auto) 0.40 Immature Gran # (Auto) 0.04 H Absolute Lymphs (auto) 1.66 Absolute Monos (auto) 0.58 Absolute Nucleated RBC 0.00 Lymphocytes % 21.1 L Monocytes % 7.4 Eosinophils % 5.1 H Basophils % 0.6 Absolute Granulocytes 5.14 Basophils # 0.05 Sodium 135 L Potassium 4.2 Chloride 106 Carbon Dioxide 22 Anion Gap 11.4 BUN 61 H Creatinine 4.57 H Estimated GFR 10.1 Glucose 283 H POC Glucometer Calcium 8.6 Total Bilirubin 0.30 AST 16 ALT 12 Alkaline Phosphatase 111 Troponin I 0.026 Serum Total Protein 5.7 L Albumin 3.0 L Urinalys Dipstick Clnc Urine Color Urine Appearance Urine pH Ur Specific [place] POC Urine Protein Conf Urine Ketones Urine Nitrite Urine Bilirubin Urine Urobilinogen Urine Leukocytes Urine WBC (Auto) Urine RBC (Auto) U Epithel Cells (Auto) Urine Bacteria (Auto) Urine RBC Urine Mucus (Auto) Ur Culture Indicated? Urine Glucose Influenza Type A Ag Influenza Type B Ag RSV (PCR) SARS-CoV-2 (PCR) 09/21/21 09/20/21 09/20/21 01:02 22:35 21:39 WBC RBC Hgb Hct MCV MCH MCHC RDW Plt Count MPV Gran % Immature Gran % (Auto) Nucleat RBC Rel Count Eos # (Auto) Immature Gran # (Auto) Absolute Lymphs (auto) Absolute Monos (auto) Absolute Nucleated RBC Lymphocytes % Monocytes % Eosinophils % Basophils % Absolute Granulocytes Basophils # Sodium Potassium Chloride Carbon Dioxide Anion Gap BUN Creatinine Estimated GFR Glucose POC Glucometer Calcium Total Bilirubin AST ALT Alkaline Phosphatase Troponin I 0.022 0.023 Serum Total Protein Albumin Urinalys Dipstick Clnc Urine Color Urine Appearance Urine pH Ur Specific [place] POC Urine Protein Conf Urine Ketones Urine Nitrite Urine Bilirubin Urine Urobilinogen Urine Leukocytes Urine WBC (Auto) Urine RBC (Auto) U Epithel Cells (Auto) Urine Bacteria (Auto) Urine RBC Urine Mucus (Auto) Ur Culture Indicated? Urine Glucose Influenza Type A Ag NEGATIVE Influenza Type B Ag NEGATIVE RSV (PCR) NEGATIVE SARS-CoV-2 (PCR) NEGATIVE 09/20/21 09/20/21 09/20/21 21:37 21:37 08:15 WBC 8.5 RBC 3.11 L Hgb 8.7 L Hct 27.2 L MCV 87.5 MCH 28.0 MCHC 32.0 RDW 17.1 H Plt Count 191 MPV 10.7 Gran % 67.8 H Immature Gran % (Auto) 0.4 Nucleat RBC Rel Count 0.0 Eos # (Auto) 0.46 Immature Gran # (Auto) 0.03 Absolute Lymphs (auto) 1.64 Absolute Monos (auto) 0.55 Absolute Nucleated RBC 0.00 Lymphocytes % 19.4 L Monocytes % 6.5 Eosinophils % 5.4 H Basophils % 0.5 Absolute Granulocytes 5.74 Basophils # 0.04 Sodium 138 Potassium 3.8 Chloride 105 Carbon Dioxide 24 Anion Gap 13.6 BUN 61 H Creatinine 4.73 H Estimated GFR 9.8 Glucose 181 H POC Glucometer Calcium 8.9 Total Bilirubin 0.30 AST 18 ALT 13 Alkaline Phosphatase 132 H Troponin I Serum Total Protein 6.8 Albumin 3.6 Urinalys Dipstick Clnc MAIN LAB Urine Color LT.YELLOW Urine Appearance CLOUDY Urine pH 5.5 Ur Specific [place] 1.020 POC Urine Protein Conf >=300 Urine Ketones NEGATIVE Urine Nitrite NEGATIVE Urine Bilirubin NEGATIVE Urine Urobilinogen 0.2 Urine Leukocytes SMALL Urine WBC (Auto) >100 Urine RBC (Auto) 6-10 U Epithel Cells (Auto) RARE Urine Bacteria (Auto) MODERATE Urine RBC MODERATE Urine Mucus (Auto) SLIGHT Ur Culture Indicated? YES Urine Glucose 250 Influenza Type A Ag Influenza Type B Ag RSV (PCR) SARS-CoV-2 (PCR) Orders (Last 24 hours) Category Date Time Status Bedrest ROUTINE Activity 09/21/21 00:10 Completed Code Status Order ROUTINE Care 09/21/21 00:10 Completed IV Care Q6H Care 09/21/21 00:10 Completed Neuro Checks Q4H Care 09/21/21 00:[address] in Observation ROUTINE Care 09/21/21 00:10 Completed Telemetry q6h Care 09/21/21 00:10 Completed Consistent Carbohydrate Diet 1800 Calorie Diet 09/21/21 Breakfast Completed Nutritional Admission Screen ONCE Diet 09/21/21 00:53 Completed Discharge Routine Discharge 09/21/21 Ordered Discharge/Telephone Order Routine Discharge 09/21/21 Active CHEST WITHOUT CONTRAST [CT] Stat Exams 09/20/21 21:48 Completed CBC W DIFF AM.LAB Lab 09/21/21 03:44 Completed CBC W DIFF Stat Lab 09/20/21 21:37 Completed CMP AM.LAB Lab 09/21/21 03:44 Completed CMP Stat Lab 09/20/21 21:37 Completed COVID/FLU/RSV Panel Stat Lab 09/20/21 22:35 Completed POCT GLUCOSE Stat Lab 09/21/21 07:34 Completed TROPONIN Q3H Lab 09/20/21 21:39 Completed TROPONIN Q3H Lab 09/21/21 01:02 Completed TROPONIN Q3H Lab 09/21/21 03:44 Completed TROPONIN Q3H Lab 09/21/21 07:00 Completed TROPONIN Q3H Lab 09/21/21 09:04 Completed UA W/RFX CULTURE Stat Lab 09/21/21 08:12 Completed Acetaminophen 325 mg [Tylenol 325 mg] Med 09/21/21 00:10 Discontinued 650 mg PO Q4H PRN PRN Clopidogrel Bisulfate [PLAVIX Tablet] Med 09/21/21 01:30 Discontinued 75 mg PO ONCE ONE Clopidogrel Bisulfate [PLAVIX Tablet] Med 09/21/21 22:00 Discontinued 75 mg PO QHS Duloxetine HCl 30 mg [Cymbalta 30 MG Capsule] Med 09/21/21 01:30 Discontinued 30 mg PO ONCE ONE Duloxetine HCl 30 mg [Cymbalta 30 MG Capsule] Med 09/21/21 22:00 Discontinued 30 mg PO QHS Folic Acid 1 mg [Folate 1 mg] Med 09/21/21 01:30 Discontinued 1 mg PO ONCE ONE Folic Acid 1 mg [Folate 1 mg] Med 09/21/21 22:00 Discontinued 1 mg PO QHS Hydrochlorothiazide 25 mg [hydroDIURIL 25 MG] Med 09/21/21 01:30 Discontinued 25 mg PO ONCE ONE Hydrochlorothiazide 25 mg [hydroDIURIL 25 MG] Med 09/21/21 22:00 Discontinued 25 mg PO QHS Labetalol HCl 100 mg [Trandate 100 MG] Med 09/21/21 10:00 Discontinued 200 mg PO BID Labetalol HCl 100 mg [Trandate 100 MG] Med 09/21/21 01:30 Discontinued 200 mg PO ONCE ONE Lidocaine HCl 5% Patch [Lidoderm Patch 5%] Med 09/21/21 10:00 Discontinued 1 patch TOP DAILY Morphine Sulfate 2 mg Inj Med 09/21/21 00:10 Discontinued 2 mg IV Q4H PRN PRN NaCl 0.9% 1000 ml [Sodium Chloride 0.9% 1000 ML] 1,000 Med 09/21/21 00:10 Discontinued ml IV 100 mls/hr Jackson-3 Fatty Acids/Fish Oil [Fish Oil 1,000 mg Med 09/21/21 10:00 D iscontinued Capsule] 1,000 mg PO BID Simvastatin 20Mg [Zocor 20Mg] Med 09/21/21 01:30 Discontinued 40 mg PO ONCE ONE Simvastatin 20Mg [Zocor 20Mg] Med 09/21/21 22:00 Discontinued 40 mg PO QHS Patient Care Notes (Last 24 hours) 09/21/21 11:43 Nursing Note by Eliz Montero patient left with on discharge. follow up appointment with Dr Martinez scheduled, prescription for lidoderm patch sent to [facility] pharmacy. Patient verbalized understanding of all discharge teaching Initialized on 09/21/21 11:43 - END OF NOTE 09/21/21 06:54 Nursing Note by Pamella Miner This nurse contacted Dr. Mars at appx [phone] and notified him of patient being hypertensive and not having taken her night time medications. New orders received. Initialized on 09/21/21 06:54 - END OF NOTE Code(s): N18.9 - CHRONIC KIDNEY DISEASE, UNSPECIFIED (2) Congestive heart failure Status: Acute Qualifiers: Heart failure type: combined systolic and diastolic Heart failure chronicity: acute on chronic Qualified Code(s): I50.43 - Acute on chronic combined systolic (congestive) and diastolic (congestive) heart failure Code(s): I50.9 - HEART FAILURE, UNSPECIFIED (3) Dizzy Status: Acute Code(s): R42 - DIZZINESS AND GIDDINESS (4) Fall Status: Acute Qualifiers: Encounter type: initial encounter Qualified Code(s): W19.XXXA - Unspecified fall, initial encounter Code(s): W19.XXXA - UNSPECIFIED FALL, INITIAL ENCOUNTER (5) Type 2 diabetes mellitus Status: Chronic Qualifiers: Diabetes mellitus intermediate teacher insulin use: with skilled nursing use Diabetes sheridan itus complication status: with kidney complications Diabetes mellitus com plication detail: with chronic kidney disease Chronic kidney disease stage: stage 5, not on chronic dialysis Qualified Code(s): E11.22 - Type 2 diabetes mellitus with diabetic chronic kidney disease; N18.5 - Chronic kidney disease, stage 5; 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 Hospital Summary - Hospital Course Hospital Course: Chief Complaint Diagnosis rib fx, fall Allergies Allergy/AdvReac Type Severity Reaction Status Date / Time liraglutide [From Victoza] AdvReac Severe pancreatiti Verified 09/21/21 00:20 s Penicillins AdvReac MOTHER WAS Verified 09/21/21 00:20 ALLERGIC SO SHE NEVER TOOK IT Vital Signs (Last 24 hours) Temp Pulse Resp BP Pulse Ox 09/21/21 08:00 97.5 F 112 H 25 H 142/72 95 09/21/21 04:00 99.5 F 80 16 146/65 92 L 09/21/21 00:40 97.7 F 86 18 145/62 96 09/20/21 23:50 95 09/20/21 20:38 97.8 F 87 20 145/62 95 Home Medications Medication Instructions Recorded Confirmed Last Taken Type Cilostazol 100 mg [Pletal 100 100 mg PO BID 09/20/21 09/21/21 09/20/21 09:00 History MG] Cinacalcet HCl 30 mg PO DAILY 09/20/21 09/21/2109/20/22 12:00 History Clopidogrel Bisulfate [PLAVIX 75 mg PO QHS 09/21/21 09/21/21 09/19/21 21:00 History Tablet] Fish Oil/Dha/Epa [Fish Oil 1,200 1 cap PO BID 09/21/21 09/21/21 09/20/21 08:00 History mg Fish Oil] Folic Acid 1 mg [Folate 1 mg] 1 mg PO QHS 09/21/21 09/21/21 09/19/21 22:00 History Lidocaine HCl 5% Patch 1 patch TOP DAILY 14 Days #14 patch 09/21/21 Unknown Rx [Lidoderm Patch 5%] Current Medications Discontinued Medications Generic Name Dose Route Start Last Admin Trade Name Freq PRN Reason Stop Dose Admin Acetaminophen 650 mg 09/21/21 00:10 Acetaminophen 325 Mg Tablet PO 10/21/21 00:09 Q4H PRN PRN PAIN AND/OR FEVER Clopidogrel Bisulfate 75 mg 09/21/21 01:30 09/21/21 01:23 Clopidogrel Bisulfate 75 Mg Tablet PO 09/21/21 01:31 75 mg ONCE ONE Administration Clopidogrel Bisulfate 75 mg 09/21/21 22:00 Clopidogrel Bisulfate 75 Mg Tablet PO 10/21/21 21:59 [facility] Duloxetine HCl 30 mg 09/21/21 01:30 09/21/21 01:23 Duloxetine Hcl 30 Mg Cap PO 09/21/21 01:31 30 mg ONCE ONE Administration Duloxetine HCl 30 mg 09/21/21 22:00 Duloxetine Hcl 30 Mg Cap PO 10/21/21 21:59 [facility] Fish Oil 1,000 mg 09/21/21 10:00 09/21/21 10:28 Jackson-3 Fatty Acids/Fish Oil 1000 Mg Capsule PO 10/21/21 09:59 1,000 mg BID [facility] Administration Folic Acid 1 mg 09/21/21 01:30 09/21/21 01:23 Folic Acid 1 Mg Tablet PO 09/21/21 01:31 1 mg ONCE ONE Administration Folic Acid 1 mg 09/21/21 22:00 Folic Acid 1 Mg Tablet PO 10/21/21 [facility] 25 mg 09/21/21 01:30 09/21/21 01:23 Hydrochlorothiazide 25 Mg Tablet PO 09/21/21 01:31 25 mg ONCE ONE Administration Hydrochlorothiazide 25 mg 09/21/21 22:00 Hydrochlorothiazide 25 Mg Tablet PO 10/21/21 21:59 QHS [facility] Sodium Chloride 1,000 mls @ 100 mls/hr 09/21/21 00:10 09/21/21 01:23 Sodium Chloride 0.9% 1000 Ml IV 10/21/21 00:09 100 mls/hr .Q10H [facility] Administration Labetalol HCl 200 mg 09/21/21 01:30 09/21/21 01:23 Labetalol Hcl 100 Mg Tablet PO 09/21/21 01:31 200 mg ONCE ONE Administration Labetalol HCl 200 mg 09/21/21 10:00 09/21/21 10:28 Labetalol Hcl 100 Mg Tablet PO 10/21/21 09:59 200 mg BID [facility] Administration Lidocaine 1 patch 09/21/21 10:00 09/21/21 10:29 Lidocaine Hcl 1 Patch Patch TOP 10/21/21 09:59 1 patch DAILY [facility] Administration Morphine Sulfate 2 mg 09/21/21 00:10 09/21/21 01:26 Morphine Sulfate 2 Mg/Ml Inj IV 09/26/21 00:09 2 mg Q4H PRN PRN Administration PAIN Simvastatin 40 mg 09/21/21 01:30 09/21/21 01:23 Simvastatin 20 Mg Tablet PO 09/21/21 01:31 40 mg ONCE ONE Administration Simvastatin 40 mg 09/21/21 22:00 Simvastatin 20 Mg Tablet PO 10/21/21 21:59 QHS [facility] Intake & Output (Last 24 hours) 09/19/21 09/20/21 09/21/21 09/22/21 11:59 11:59 11:59 11:59 Intake Total 269 Balance 269 Weight 88.2 kg Microbiology Results (Last 24 hours) 09/20/21 08:15 Urine, Void Urine Culture - Pending Laboratory Results (Last 24 hours) 09/21/21 09/21/21 09/21/21 09:04 07:34 07:00 WBC RBC Hgb Hct MCV MCH MCHC RDW Plt Count MPV Gran % Immature Gran % (Auto) Nucleat RBC Rel Count Eos # (Auto) Immature Gran # (Auto) Absolute Lymphs (auto) Absolute Monos (auto) Absolute Nucleated RBC Lymphocytes % Monocytes % Eosinophils % Basophils % Absolute Granulocytes Basophils # Sodium Potassium Chloride Carbon Dioxide Anion Gap BUN Creatinine Estimated GFR Glucose POC Glucometer 211 H Calcium Total Bilirubin AST ALT Alkaline Phosphatase Troponin I 0.023 0.028 Serum Total Protein Albumin Urinalys Dipstick Clnc Urine Color Urine Appearance Urine pH Ur Specific [place] POC Urine Protein Conf Urine Ketones Urine Nitrite Urine Bilirubin Urine Urobilinogen Urine Leukocytes Urine WBC (Auto) Urine RBC (Auto) U Epithel Cells (Auto) Urine Bacteria (Auto) Urine RBC Urine Mucus (Auto) Ur Culture Indicated? Urine Glucose Influenza Type A Ag Influenza Type B Ag RSV (PCR) SARS-CoV-2 (PCR) 09/21/21 09/21/21 09/21/21 03:44 03:44 03:44 WBC 7.9 RBC 2.99 L Hgb 8.4 L Hct 26.6 L MCV 89.0 MCH 28.1 MCHC 31.6 L RDW 17.3 H Plt Count 181 MPV 10.7 Gran % 65.3 Immature Gran % (Auto) 0.5 H Nucleat RBC Rel Count 0.0 Eos # (Auto) 0.40 Immature Gran # (Auto) 0.04 H Absolute Lymphs (auto) 1.66 Absolute Monos (auto) 0.58 Absolute Nucleated RBC 0.00 Lymphocytes % 21.1 L Monocytes % 7.4 Eosinophils % 5.1 H Basophils % 0.6 Absolute Granulocytes 5.14 Basophils # 0.05 Sodium 135 L Potassium 4.2 Chloride 106 Carbon Dioxide 22 Anion Gap 11.4 BUN 61 H Creatinine 4.57 H Estimated GFR 10.1 Glucose 283 H POC Glucometer Calcium 8.6 Total Bilirubin 0.30 AST 16 ALT 12 Alkaline Phosphatase 111 Troponin I 0.026 Serum Total Protein 5.7 L Albumin 3.0 L Urinalys Dipstick Clnc Urine Color Urine Appearance Urine pH Ur Specific [place] POC Urine Protein Conf Urine Ketones Urine Nitrite Urine Bilirubin Urine Urobilinogen Urine Leukocytes Urine WBC (Auto) Urine RBC (Auto) U Epithel Cells (Auto) Urine Bacteria (Auto) Urine RBC Urine Mucus (Auto) Ur Culture Indicated? Urine Glucose Influenza Type A Ag Influenza Type B Ag RSV (PCR) SARS-CoV-2 (PCR) 09/21/21 09/20/21 09/20/21 01:02 22:35 21:39 WBC RBC Hgb Hct MCV MCH MCHC RDW Plt Count MPV Gran % Immature Gran % (Auto) Nucleat RBC Rel Count Eos # (Auto) Immature Gran # (Auto) Absolute Lymphs (auto) Absolute Monos (auto) Absolute Nucleated RBC Lymphocytes % Monocytes % Eosinophils % Basophils % Absolute Granulocytes Basophils # Sodium Potassium Chloride Carbon Dioxide Anion Gap BUN Creatinine Estimated GFR Glucose POC Glucometer Calcium Total Bilirubin AST ALT Alkaline Phosphatase Troponin I 0.022 0.023 Serum Total Protein Albumin Urinalys Dipstick Clnc Urine Color Urine Appearance Urine pH Ur Specific [place] POC Urine Protein Conf Urine Ketones Urine Nitrite Urine Bilirubin Urine Urobilinogen Urine Leukocytes Urine WBC (Auto) Urine RBC (Auto) U Epithel Cells (Auto) Urine Bacteria (Auto) Urine RBC Urine Mucus (Auto) Ur Culture Indicated? Urine Glucose Influenza Type A Ag NEGATIVE Influenza Type B Ag NEGATIVE RSV (PCR) NEGATIVE SARS-CoV-2 (PCR) NEGATIVE 09/20/21 09/20/21 09/20/21 21:37 21:37 08:15 WBC 8.5 RBC 3.11 L Hgb 8.7 L Hct 27.2 L MCV 87.5 MCH 28.0 MCHC 32.0 RDW 17.1 H Plt Count 191 MPV 10.7 Gran % 67.8 H Immature Gran % (Auto) 0.4 Nucleat RBC Rel Count 0.0 Eos # (Auto) 0.46 Immature Gran # (Auto) 0.03 Absolute Lymphs (auto) 1.64 Absolute Monos (auto) 0.55 Absolute Nucleated RBC 0.00 Lymphocytes % 19.4 L Monocytes % 6.5 Eosinophils % 5.4 H Basophils % 0.5 Absolute Granulocytes 5.74 Basophils # 0.04 Sodium 138 Potassium 3.8 Chloride 105 Carbon Dioxide 24 Anion Gap 13.6 BUN 61 H Creatinine 4.73 H Estimated GFR 9.8 Glucose 181 H POC Glucometer Calcium 8.9 Total Bilirubin 0.30 AST 18 ALT 13 Alkaline Phosphatase 132 H Troponin I Serum Total Protein 6.8 Albumin 3.6 Urinalys Dipstick Clnc MAIN LAB Urine Color LT.YELLOW Urine Appearance CLOUDY Urine pH 5.5 Ur Specific [place] 1.020 POC Urine Protein Conf >=300 Urine Ketones NEGATIVE Urine Nitrite NEGATIVE Urine Bilirubin NEGATIVE Urine Urobilinogen 0.2 Urine Leukocytes SMALL Urine WBC (Auto) >100 Urine RBC (Auto) 6-10 U Epithel Cells (Auto) RARE Urine Bacteria (Auto) MODERATE Urine RBC MODERATE Urine Mucus (Auto) SLIGHT Ur Culture Indicated? YES Urine Glucose 250 Influenza Type A Ag Influenza Type B Ag RSV (PCR) SARS-CoV-2 (PCR) Orders (Last 24 hours) Category Date Time Status Bedrest ROUTINE Activity 09/21/21 00:10 Completed Code Status Order ROUTINE Care 09/21/21 00:10 Completed IV Care Q6H Care 09/21/21 00:10 Completed Neuro Checks Q4H Care 09/21/21 00:[address] in Observation ROUTINE Care 09/21/21 00:10 Completed Telemetry q6h Care 09/21/21 00:10 Completed Consistent Carbohydrate Diet 1800 Calorie Diet 09/21/21 Breakfast Completed Nutritional Admission Screen ONCE Diet 09/21/21 00:53 Completed Discharge Routine Discharge 09/21/21 Ordered Discharge/Telephone Order Routine Discharge 09/21/21 Active CHEST WITHOUT CONTRAST [CT] Stat Exams 09/20/21 21:48 Completed CBC W DIFF AM.LAB Lab 09/21/21 03:44 Completed CBC W DIFF Stat Lab 09/20/21 21:37 Completed CMP AM.LAB Lab 09/21/21 03:44 Completed CMP Stat Lab 09/20/21 21:37 Completed COVID/FLU/RSV Panel Stat Lab 09/20/21 22:35 Completed POCT GLUCOSE Stat Lab 09/21/21 07:34 Completed TROPONIN Q3H Lab 09/20/21 21:39 Completed TROPONIN Q3H Lab 09/21/21 01:02 Completed TROPONIN Q3H Lab 09/21/21 03:44 Completed TROPONIN Q3H Lab 09/21/21 07:00 Completed TROPONIN Q3H Lab 09/21/21 09:04 Completed UA W/RFX CULTURE Stat Lab 09/21/21 08:12 Completed Acetaminophen 325 mg [Tylenol 325 mg] Med 09/21/21 00:10 Discontinued 650 mg PO Q4H PRN PRN Clopidogrel Bisulfate [PLAVIX Tablet] Med 09/21/21 01:30 Discontinued 75 mg PO ONCE ONE Clopidogrel Bisulfate [PLAVIX Tablet] Med 09/21/21 22:00 Discontinued 75 mg PO QHS Duloxetine HCl 30 mg [Cymbalta 30 MG Capsule] Med 09/21/21 01:30 Discontinued 30 mg PO ONCE ONE Duloxetine HCl 30 mg [Cymbalta 30 MG Capsule] Med 09/21/21 22:00 Discontinued 30 mg PO QHS Folic Acid 1 mg [Folate 1 mg] Med 09/21/21 01:30 Discontinued 1 mg PO ONCE ONE Folic Acid 1 mg [Folate 1 mg] Med 09/21/21 22:00 Discontinued 1 mg PO QHS Hydrochlorothiazide 25 mg [hydroDIURIL 25 MG] Med 09/21/21 01:30 Discontinued 25 mg PO ONCE ONE Hydrochlorothiazide 25 mg [hydroDIURIL 25 MG] Med 09/21/21 22:00 Discontinued 25 mg PO QHS Labetalol HCl 100 mg [Trandate 100 MG] Med 09/21/21 10:00 Discontinued 200 mg PO BID Labetalol HCl 100 mg [Trandate 100 MG] Med 09/21/21 01:30 Discontinued 200 mg PO ONCE ONE Lidocaine HCl 5% Patch [Lidoderm Patch 5%] Med 09/21/21 10:00 Discontinued 1 patch TOP DAILY Morphine Sulfate 2 mg Inj Med 09/21/21 00:10 Discontinued 2 mg IV Q4H PRN PRN NaCl 0.9% 1000 ml [Sodium Chloride 0.9% 1000 ML] 1,000 Med 09/21/21 00:10 Discontinued ml IV 100 mls/hr Jackson-3 Fatty Acids/Fish Oil [Fish Oil 1,000 mg Med 09/21/21 10:00 Discontinued Capsule] 1,000 mg PO BID Simvastatin 20Mg [Zocor 20Mg] Med 09/21/21 01:30 Discontinued 40 mg PO ONCE ONE Simvastatin 20Mg [Zocor 20Mg] Med 09/21/21 22:00 Discontinued 40 mg PO QHS Patient Care Notes (Last 24 hours) 09/21/21 11:43 Nursing Note by Eliz Montero patient left with on discharge. follow up appointment with Dr Martinez scheduled, prescription for lidoderm patch sent to [facility] pharmacy. Patient verbalized understanding of all discharge teaching Initialized on 09/21/21 11:43 - END OF NOTE 09/21/21 06:54 Nursing Note by Pamella Miner This nurse contacted Dr. Mars at appx [phone] and notified him of patient being hypertensive and not having taken her night time medications. New orders received. Initialized on 09/21/21 06:54 - END OF NOTE - Vitals & Intake/Output Vital Signs: Vital Signs Temperature 97.5 F 09/21/21 08:00 Pulse Rate 112 H 09/21/21 08:00 Respiratory Rate 25 H 09/21/21 08:00 Blood Pressure 142/72 09/21/21 08:00 O2 Sat by Pulse Oximetry 95 09/21/21 08:00 Intake & Output: Intake & Output 09/19/21 09/20/21 09/21/21 09/22/21 11:59 11:59 11:59 11:59 Intake Total 269 Balance 269 Weight 88.2 kg - Lab Result Diagrams: 09/21/21 03:44 09/21/21 03:44 Lab Results-Last 24 Hrs: Lab Results-Last 24 Hours 09/20/21 09/20/21 09/20/21 Range/Units 08:15 21:37 21:37 WBC 8.5 (4.0-10.5) x10^3/uL RBC 3.11 L (4.1-5.4) x10^6/uL Hgb 8.7 L (12.0-16.0) g/dL Hct 27.2 L (35-47) % MCV 87.5 (78-100) fL MCH 28.0 (26-32) pg MCHC 32.0 (32-36) g/dL RDW 17.1 H (11.5-14.0) % Plt Count 191 (150-450) x10^3/uL MPV 10.7 (7.5-11.0) fL Gran % 67.8 H (36.0-66.0) % Immature Gran % (Auto) 0.4 (0.00-0.4) % Nucleat RBC Rel Count 0.0 (0.00-0.1) % Eos # (Auto) 0.46 (0-0.5) x10^3/uL Immature Gran # (Auto) 0.03 (0.00-0.03) x10^3u/L Absolute Lymphs (auto) 1.64 (1.0-4.6) x10^3/uL Absolute Monos (auto) 0.55 (0.0-1.3) x10^3/uL Absolute Nucleated RBC 0.00 (0.00-0.01) x10^3u/L Lymphocytes % 19.4 L (24.0-44.0) % Monocytes % 6.5 (0.0-12.0) % Eosinophils % 5.4 H (0.00-5.0) % Basophils % 0.5 (0.0-0.4) % Absolute Granulocytes 5.74 (1.4-6.9) x10^3/uL Basophils # 0.04 (0-0.4) x10^3/uL Sodium 138 (137-145) mmol/L Potassium 3.8 (3.5-5.1) mmol/L Chloride 105 (98-107) mmol/L Carbon Dioxide 24 (22-30) mmol/L Anion Gap 13.6 (5-15) MEQ/L BUN 61 H (7-17) mg/dL Creatinine 4.73 H (0.52-1.04) mg/dL Estimated GFR 9.8 ML/MIN Glucose 181 H (74-106) mg/dL POC Glucometer (74 to 106) mg/dL Calcium 8.9 (8.4-10.2) mg/dL Total Bilirubin 0.30 (0.2-1.3) mg/dL AST 18 (14-36) U/L ALT 13 (0-35) U/L Alkaline Phosphatase 132 H (38-126) U/L Troponin I (0.000-0.034) ng/mL Serum Total Protein 6.8 (6.3-8.2) g/dL Albumin 3.6 (3.5-5.0) g/dL Urinalys Dipstick Clnc MAIN LAB Urine Color LT.YELLOW (YELLOW) Urine Appearance CLOUDY (CLEAR) Urine pH 5.5 (5-6) Ur Specific [place] 1.020 (1.005-1.025) POC Urine Protein Conf >=300 (Negative) Urine Ketones NEGATIVE (NEGATIVE) Urine Nitrite NEGATIVE (NEGATIVE) Urine Bilirubin NEGATIVE (NEGATIVE) Urine Urobilinogen 0.2 (0-1) mg/dL Urine Leukocytes SMALL (NEGATIVE) Urine WBC (Auto) >100 (0-5) /HPF Urine RBC (Auto) 6-10 (0-2) /HPF U Epithel Cells (Auto) RARE (FEW) /HPF Urine Bacteria (Auto) MODERATE (NEGATIVE) /HPF Urine RBC MODERATE (0-5) Onur/ul Urine Mucus (Auto) SLIGHT (NEGATIVE) /HPF Ur Culture Indicated? YES Urine Glucose 250 (NEGATIVE) mg/dL Influenza Type A Ag (NEGATIVE) Influenza Type B Ag (NEGATIVE) RSV (PCR) (Negative) SARS-CoV-2 (PCR) (NEGATIVE) 09/20/21 09/20/21 09/21/21 Range/Units 21:39 22:35 01:02 WBC (4.0-10.5) x10^3/uL RBC (4.1-5.4) x10^6/uL Hgb (12.0-16.0) g/dL Hct (35-47) % MCV (78-100) fL MCH (26-32) pg MCHC (32-36) g/dL RDW (11.5-14.0) % Plt Count (150-450) x10^3/uL MPV (7.5-11.0) fL Gran % (36.0-66.0) % Immature Gran % (Auto) (0.00-0.4) % Nucleat RBC Rel Count (0.00-0.1) % Eos # (Auto) (0-0.5) x10^3/uL Immature Gran # (Auto) (0.00-0.03) x10^3u/L Absolute Lymphs (auto) (1.0-4.6) x10^3/uL Absolute Monos (auto) (0.0-1.3) x10^3/uL Absolute Nucleated RBC (0.00-0.01) x10^3u/L Lymphocytes % (24.0-44.0) % Monocytes % (0.0-12.0) % Eosinophils % (0.00-5.0) % Basophils % (0.0-0.4) % Absolute Granulocytes (1.4-6.9) x10^3/uL Basophils # (0-0.4) x10^3/uL Sodium (137-145) mmol/L Potassium (3.5-5.1) mmol/L Chloride (98-107) mmol/L Carbon Dioxide (22-30) mmol/L Anion Gap (5-15) MEQ/L BUN (7-17) mg/dL Creatinine (0.52-1.04) mg/dL Estimated GFR ML/MIN Glucose (74-106) mg/dL POC Glucometer (74 to 106) mg/dL Calcium (8.4-10.2) mg/dL Total Bilirubin (0.2-1.3) mg/dL AST (14-36) U/L ALT (0-35) U/L Alkaline Phosphatase (38-126) U/L Troponin I 0.023 0.022 (0.000-0.034) ng/mL Serum Total Protein (6.3-8.2) g/dL Albumin (3.5-5.0) g/dL Urinalys Dipstick Clnc Urine Color (YELLOW) Urine Appearance (CLEAR) Urine pH (5-6) Ur Specific [place] (1.005-1.025) POC Urine Protein Conf (Negative) Urine Ketones (NEGATIVE) Urine Nitrite (NEGATIVE) Urine Bilirubin (NEGATIVE) Urine Urobilinogen (0-1) mg/dL Urine Leukocytes (NEGATIVE) Urine WBC (Auto) (0-5) /HPF Urine RBC (Auto) (0-2) /HPF U Epithel Cells (Auto) (FEW) /HPF Urine Bacteria (Auto) (NEGATIVE) /HPF Urine RBC (0-5) Onur/ul Urine Mucus (Auto) (NEGATIVE) /HPF Ur Culture Indicated? Urine Glucose (NEGATIVE) mg/dL Influenza Type A Ag NEGATIVE (NEGATIVE) Influenza Type B Ag NEGATIVE (NEGATIVE) RSV (PCR) NEGATIVE (Negative) SARS-CoV-2 (PCR) NEGATIVE (NEGATIVE) 09/21/21 09/21/21 09/21/21 Range/Units 03:44 03:44 03:44 WBC 7.9 (4.0-10.5) x10^3/uL RBC 2.99 L (4.1-5.4) x10^6/uL Hgb 8.4 L (12.0-16.0) g/dL Hct 26.6 L (35-47) % MCV 89.0 (78-100) fL MCH 28.1 (26-32) pg MCHC 31.6 L (32-36) g/dL RDW 17.3 H (11.5-14.0) % Plt Count 181 (150-450) x10^3/uL MPV 10.7 (7.5-11.0) fL Gran % 65.3 (36.0-66.0) % Immature Gran % (Auto) 0.5 H (0.00-0.4) % Nucleat RBC Rel Count 0.0 (0.00-0.1) % Eos # (Auto) 0.40 (0-0.5) x10^3/uL Immature Gran # (Auto) 0.04 H (0.00-0.03) x10^3u/L Absolute Lymphs (auto) 1.66 (1.0-4.6) x10^3/uL Absolute Monos (auto) 0.58 (0.0-1.3) x10^3/uL Absolute Nucleated RBC 0.00 (0.00-0.01) x10^3u/L Lymphocytes % 21.1 L (24.0-44.0) % Monocytes % 7.4 (0.0-12.0) % Eosinophils % 5.1 H (0.00-5.0) % Basophils % 0.6 (0.0-0.4) % Absolute Granulocytes 5.14 (1.4-6.9) x10^3/uL Basophils # 0.05 (0-0.4) x10^3/uL Sodium 135 L (137-145) mmol/L Potassium 4.2 (3.5-5.1) mmol/L Chloride 106 (98-107) mmol/L Carbon Dioxide 22 (22-30) mmol/L Anion Gap 11.4 (5-15) MEQ/L BUN 61 H (7-17) mg/dL Creatinine 4.57 H (0.52-1.04) mg/dL Estimated GFR 10.1 ML/MIN Glucose 283 H (74-106) mg/dL POC Glucometer (74 to 106) mg/dL Calcium 8.6 (8.4-10.2) mg/dL Total Bilirubin 0.30 (0.2-1.3) mg/dL AST 16 (14-36) U/L ALT 12 (0-35) U/L Alkaline Phosphatase 111 (38-126) U/L Troponin I 0.026 (0.000-0.034) ng/mL Serum Total Protein 5.7 L (6.3-8.2) g/dL Albumin 3.0 L (3.5-5.0) g/dL Urinalys Dipstick Clnc Urine Color (YELLOW) Urine Appearance (CLEAR) Urine pH (5-6) Ur Specific [place] (1.005-1.025) POC Urine Protein Conf (Negative) Urine Ketones (NEGATIVE) Urine Nitrite (NEGATIVE) Urine Bilirubin (NEGATIVE) Urine Urobilinogen (0-1) mg/dL Urine Leukocytes (NEGATIVE) Urine WBC (Auto) (0-5) /HPF Urine RBC (Auto) (0-2) /HPF U Epithel Cells (Auto) (FEW) /HPF Urine Bacteria (Auto) (NEGATIVE) /HPF Urine RBC (0-5) Onur/ul Urine Mucus (Auto) (NEGATIVE) /HPF Ur Culture Indicated? Urine Glucose (NEGATIVE) mg/dL Influenza Type A Ag (NEGATIVE) Influenza Type B Ag (NEGATIVE) RSV (PCR) (Negative) SARS-CoV-2 (PCR) (NEGATIVE) 09/21/21 09/21/21 09/21/21 Range/Units 07:00 07:34 09:04 WBC (4.0-10.5) x10^3/uL RBC (4.1-5.4) x10^6/uL Hgb (12.0-16.0) g/dL Hct (35-47) % MCV (78-100) fL MCH (26-32) pg MCHC (32-36) g/dL RDW (11.5-14.0) % Plt Count (150-450) x10^3/uL MPV (7.5-11.0) fL Gran % (36.0-66.0) % Immature Gran % (Auto) (0.00-0.4) % Nucleat RBC Rel Count (0.00-0.1) % Eos # (Auto) (0-0.5) x10^3/uL Immature Gran # (Auto) (0.00-0.03) x10^3u/L Absolute Lymphs (auto) (1.0-4.6) x10^3/uL Absolute Monos (auto) (0.0-1.3) x10^3/uL Absolute Nucleated RBC (0.00-0.01) x10^3u/L Lymphocytes % (24.0-44.0) % Monocytes % (0.0-12.0) % Eosinophils % (0.00-5.0) % Basophils % (0.0-0.4) % Absolute Granulocytes (1.4-6.9) x10^3/uL Basophils # (0-0.4) x10^3/uL Sodium (137-145) mmol/L Potassium (3.5-5.1) mmol/L Chloride (98-107) mmol/L Carbon Dioxide (22-30) mmol/L Anion Gap (5-15) MEQ/L BUN (7-17) mg/dL Creatinine (0.52-1.04) mg/dL Estimated GFR ML/MIN Glucose (74-106) mg/dL POC Glucometer 211 H (74 to 106) mg/dL Calcium (8.4-10.2) mg/dL Total Bilirubin (0.2-1.3) mg/dL AST (14-36) U/L ALT (0-35) U/L Alkaline Phosphatase (38-126) U/L Troponin I 0.028 0.023 (0.000-0.034) ng/mL Serum Total Protein (6.3-8.2) g/dL Albumin (3.5-5.0) g/dL Urinalys Dipstick Clnc Urine Color (YELLOW) Urine Appearance (CLEAR) Urine pH (5-6) Ur Specific [place] (1.005-1.025) POC Urine Protein Conf (Negative) Urine Ketones (NEGATIVE) Urine Nitrite (NEGATIVE) Urine Bilirubin (NEGATIVE) Urine Urobilinogen (0-1) mg/dL Urine Leukocytes (NEGATIVE) Urine WBC (Auto) (0-5) /HPF Urine RBC (Auto) (0-2) /HPF U Epithel Cells (Auto) (FEW) /HPF Urine Bacteria (Auto) (NEGATIVE) /HPF Urine RBC (0-5) Onur/ul Urine Mucus (Auto) (NEGATIVE) /HPF Ur Culture Indicated? Urine Glucose (NEGATIVE) mg/dL Influenza Type A Ag (NEGATIVE) Influenza Type B Ag (NEGATIVE) RSV (PCR) (Negative) SARS-CoV-2 (PCR) (NEGATIVE) - Radiology Exams Ordered Rad Exams-Entire Visit: Radiology Procedures Category Date Time Status CHEST WITHOUT CONTRAST [CT] Stat Exams 09/20/21 21:48 Completed - Discharge Discharge Date: 09/21/21 Disposition: Home, Self-Care Condition: Stable Prescriptions: New Lidocaine HCl 5% Patch [Lidoderm Patch 5%] 1 patch TOP DAILY 14 Days #14 patch No Action Aspirin [Baby Aspirin] 81 mg PO DAILY Pravastatin Sodium 40 mg PO QHS Duloxetine HCl 30 mg [Cymbalta 30 MG Capsule] 30 mg PO QHS Ergocalciferol (Vitamin D2) [Vitamin D] 50,000 unit PO 2XW Amlodipine Besylate 5 mg [Norvasc 5 mg] 5 mg PO DAILY hydroCHLOROthiazide [Hydrochlorothiazide] 25 mg PO QHS Labetalol HCl 100 mg [Trandate 100 MG] 200 mg PO BID Insulin Lispro [Humalog] 35 unit SQ AC Donepezil HCl [Aricept] 5 mg PO DAILY Cinacalcet HCl 30 mg PO DAILY Cilostazol 100 mg [Pletal 100 MG] 100 mg PO BID Folic Acid 1 mg [Folate 1 mg] 1 mg PO QHS Fish Oil/Dha/Epa [Fish Oil 1,200 mg Fish Oil] 1 cap PO BID Clopidogrel Bisulfate [PLAVIX Tablet] 75 mg PO QHS Instructions: Rib Fracture (DC) Additional Instructions: If you need anything for your rib pain, you may take tylenol at home. Do not take ibuprofen, as it will decrease your kidney function ' Follow up with: NELSON MARTINEZ [CONSULTING PHYSICIAN] - 09/27/21 1:20 pm (at [facility]) FANTA TREVIÑO MD [Primary Care Provider] - 09/28/21 1:45 pm (at [place] )
[2021-09-21] MEDS ORDERED: NON-FORMULARY ITEM (Pravastatin Sodium [Pravastatin Sodium] 40 MG Tablet) PO SCH (22:00)
[2021-09-21] MEDS ORDERED: FOLATE 1 MG PO SCH (22:00)
[2021-09-21] MEDS ORDERED: ZOCOR 20MG PO SCH (22:00)
[2021-09-21] MEDS ORDERED: hydroDIURIL 25 MG PO SCH (22:00)
[2021-09-21] MEDS ORDERED: PLAVIX Tablet PO SCH (22:00)
[2021-09-21] MEDS ORDERED: Cymbalta 30 MG Capsule PO SCH (22:00)
== END 2021-09-21 11:11 | disposition home or self-care (01) ==
LOC: ED 20:38 → MED SURG 09-21 00:05
PROVIDERS: ADMIT General Practice; ATTEND General Practice
DX: N18.5 Chronic kidney disease, stage 5 (principal); E11.22 Type 2 diabetes mellitus with diabetic chronic kidney disease; I11.0 Hypertensive heart disease with heart failure; I50.9 Heart failure, unspecified; R42 Dizziness and giddiness; W19.XXXA Unspecified fall, initial encounter; Z79.4 Long term (current) use of insulin; Z79.899 Other long term (current) drug therapy; Z20.828 Contact with and (suspected) exposure to other viral communicable diseases
CPT/HCPCS: 0241U; 36415; 71250; 80053; 81015; 82947; 84484; 85025; 87077; 87086; 87186; 93268; 99284; G0378; J2270; A9270-GY